=== PATIENT | male | born 1935 | race African-American/Black ===

== ENCOUNTER 2017-01-28 08:36 | Inpatient (IN) | payer OTHER ==
[2017-01-28 09:02] VITALS: BMI 26.6
--- NOTE | 2017-01-28 09:42 | PDOC ---
History of Present Illness <Ilir Peterson - Last Filed: 01/28/17 14:30> - General History Source: Patient Exam Limitations: No Limitations - History of Present Illness Initial Comments: 01/28/17 10:18 81 y.o. M with pmh of HTN, DM, GERD, and arrythmia with pacemaker presenting with dizziness and gait disturbance. Patient states he woke up this morning around 4 am and felt dizzy and unsteady on his feet. Patient also reports right leg weakness. Patient was last normal yesterday prior to sleeping. Patient states he has never had a stroke before. He denies fall LOC, headache, blurry vision, change in vision, tinnitus, hearing loss. PSH- pacemaker placement 3 yrs ago Allergies- Aspirin --Stomach pain, no swelling, no rash Social hx: denies smoking, drinking, and drug use PCP: Dr. Loly Merino President & Founder: Dr. Mccloud <Austen Moore - Last Filed: 01/28/17 15:31> - General Chief Complaint: CVA/TIA Stated Complaint: CVA/TIA Time Seen by Provider: 01/28/17 09:12 NIH Stroke Scale - Last Known Well Date/Time & Onset Date Last Known Well: 01/27/17 Time Last Known Well: 23:00 - Initial Evaluation Level of consciousness: Alert Ask patient the month and their age: Answers both correctly Ask patient to open & close eyes; make fist and let go: Obeys both correctly Best gaze (horizontal eye movement): Normal Visual field testing: No visual field loss Facial paresis (Show teeth/raise eyebrows/close eyes tight): Normal symmetrical movement Motor Function: Left Arm: Normal Motor Function: Right Arm: Normal (extends arm 90 (or 45) degrees for 10 seconds without drift Motor Function: Left Leg: Some effort against gravity Motor Function: Right Leg: Some effort against gravity Limb Ataxia: Present in one limb Sensory(Use pinprick test arms,legs,trunk,face/side to side): Normal Best language (Describe picture, name items, read sentences): No Aphasia Dysarthria (read several words): Mild to moderate slurring of words Extinction and Inattention: No abnormality - Total Score NIH Stroke Scale Score: 6 <Ilir Peterson - Last Filed: 01/28/17 14:30> Past History <Ilir Peterson - Last Filed: 01/28/17 14:30> - Past Medical History Cardiac Disorders: Yes Diabetes: Yes HTN: Yes - Surgical History Cardiac Surgery: Yes (Pacemaker) - Immunization History Immunization Up to Date: No - Suicide/Smoking/Psychosocial Hx Smoking Status: No Smoking History: Never smoked Have you smoked in the past 12 months: No Number of Cigarettes Smoked Daily: 0 Information on smoking cessation initiated: No Hx Alcohol Use: No Drug/Substance Use Hx: No Substance Use Type: None Hx Substance Use Treatment: No <Austen Moore - Last Filed: 01/28/17 15:31> - Past Medical History Allergies/Adverse Reactions: Allergies Allergy/AdvReac Type Severity Reaction Status Date / Time No Known Allergies Allergy Verified 01/28/17 15:08 Home Medications: Ambulatory Orders Insulin 30/Insul NPH Hum S-S70 [NovoLIN 70/30] 30 units SQ BID 12/15/11 Omeprazole Magnesium [Prilosec (OTC)] 20 mg PO DAILY 12/15/11 Insulin (Novolog 70/30) [Novolog Mix 70/30 Flexpen -] 30 units SQ BIDI #0 pen Lisinopril [Prinivil] 2.5 mg PO DAILY #0 tablet 02/23/12 Metoprolol Succinate [Toprol XL -] 25 mg PO DAILY #0 tab.sr.24h 02/23/12 Ranolazine [Ranexa] 1,000 mg PO BID #0 tab.er.12h 02/23/12 Zantac 150 mg PO DAILY #0 02/23/12 Review of Systems - Review of Systems Comments:: 01/28/17 10:29 GENERAL/CONSTITUTIONAL: No fever or chills. No weakness. HEAD, EYES, EARS, NOSE AND THROAT: No change in vision. No ear pain or discharge. No sore throat. No blurry vision CARDIOVASCULAR: No chest pain or shortness of breath RESPIRATORY: No cough, wheezing, or hemoptysis. GASTROINTESTINAL: No nausea, vomiting, diarrhea or constipation. GENITOURINARY: No dysuria, frequency, or change in urination. MUSCULOSKELETAL: No joint or muscle swelling or pain. No neck or back pain. SKIN: No rash NEUROLOGIC: +Dizzines, +RLE weakness, +gait instability, No headache, loss of consciousness, change in sensation ENDOCRINE: No increased thirst. No abnormal weight change HEMATOLOGIC/LYMPHATIC: No anemia, easy bleeding, or history of blood clots. ALLERGIC/IMMUNOLOGIC: No hives or skin allergy. <Austen Moore - Last Filed: 01/28/17 15:31> *Physical Exam - Vital Signs Last Vital Signs Temp Pulse Resp BP Pulse Ox 98 F 63 18 165/87 100 01/28/17 08:45 01/28/17 13:24 01/28/17 13:24 01/28/17 13:24 01/28/17 13:24 <BlairOsmar [email or web address] - Last Filed: 01/28/17 14:30> - Vital Signs Last Vital Signs Temp Pulse Resp BP Pulse Ox 98 F 98 H 18 173/112 100 01/28/17 08:45 01/28/17 08:45 01/28/17 08:45 01/28/17 08:45 01/28/17 08:45 - Physical Exam Comments: 01/28/17 10:29 GENERAL: Awake, alert, and fully oriented, in no acute distress HEAD: No signs of trauma, normocephalic, atraumatic EYES: PERRLA, EOMI, sclera anicteric, conjunctiva clear ENT: Auricles normal inspection, hearing grossly normal, nares patent, oropharynx clear without exudates. Dry mucosa. Poor dentition NECK: Normal ROM, supple, no lymphadenopathy, JVD, or masses LUNGS: No distress, speaks full sentences, clear to auscultation bilaterally HEART: Regular rate and rhythm, normal S1 and S2, no murmurs, rubs or gallops, peripheral pulses normal and equal bilaterally. ABDOMEN: Soft, nontender, normoactive bowel sounds. No guarding, no rebound. No masses EXTREMITIES: Normal inspection, Normal range of motion, no edema. No clubbing or cyanosis. NEUROLOGICAL: Cranial nerves II through XII grossly intact. Normal speech, + Ataxic gait, 4/5 strength in b/l LE, Normal finger to nose and heel to hill SKIN: Warm, Dry, normal turgor, no rashes or lesions noted. 01/28/17 11:34 <Austen Moore - Last Filed: 01/28/17 15:31> ED Treatment Course - LABORATORY CBC & Chemistry Diagram: 01/28/17 10:00 01/28/17 10:00 - ADDITIONAL ORDERS Additional order review: Laboratory Results 01/28/17 01/28/17 01/28/17 12:33 10:00 10:00 PT with INR INR Sodium 138 Potassium 5.6 H Chloride 104 Carbon Dioxide 29 D Anion Gap 5 L BUN 26 H D Creatinine 1.7 H D Creat Clearance w eGFR 38.97 Random Glucose 199 H D Calcium 9.2 Total Bilirubin 0.7 D AST 46 H D ALT 34 Alkaline Phosphatase 86 D Creatine Kinase 375 H Creatine Kinase Index 2.2 CK-MB (CK-2) 8.320 H Troponin I 0.16 H Total Protein 6.8 Albumin 3.1 L Triglycerides 135 D Cholesterol 197 Total LDL Cholesterol 121 H HDL Cholesterol 50 Urine Color Ltyellow Urine Appearance Clear Urine pH 7.0 Ur Specific [place] 1.020 Urine Protein 3+ H Urine Glucose (UA) 1+ H Urine Ketones Negative Urine Blood 1+ H Urine Nitrite Negative Urine Bilirubin Negative Urine Urobilinogen Negative Urine RBC 1 Urine WBC <1 Hyaline Casts 5 Urine Mucus Rare Blood Type O POSITIVE Antibody Screen Negative 01/28/17 10:00 PT with INR 12.60 H INR 1.14 Sodium Potassium Chloride Carbon Dioxide Anion Gap BUN Creatinine Creat Clearance w eGFR Random Glucose Calcium Total Bilirubin AST ALT Alkaline Phosphatase Creatine Kinase Creatine Kinase Index CK-MB (CK-2) Troponin I Total Protein Albumin Triglycerides Cholesterol Total LDL Cholesterol HDL Cholesterol Urine Color Urine Appearance Urine pH Ur Specific [place] Urine Protein Urine Glucose (UA) Urine Ketones Urine Blood Urine Nitrite Urine Bilirubin Urine Urobilinogen Urine RBC Urine WBC Hyaline Casts Urine Mucus Blood Type Antibody Screen 01/28/17 10:00 RBC 5.53 MCV 94.0 MCHC 32.5 RDW 15.2 MPV 9.9 Neutrophils % 60.5 Lymphocytes % 30.2 Monocytes % 7.1 D Eosinophils % 1.7 Basophils % 0.5 D - Medications Given in the ED: ED Medications Discontinued Medications Generic Name Dose Route Start Last Admin Trade Name Freq PRN Reason Stop Dose Admin Aspirin 325 mg 01/28/17 11:35 01/28/17 11:42 Asa - PO 01/28/17 11:36 325 mg ONCE ONE Administration <Ilir Peterson - Last Filed: 01/28/17 14:30> - LABORATORY CBC & Chemistry Diagram: 01/28/17 10:00 01/28/17 10:00 <Austen Moore - Last Filed: 01/28/17 15:31> Medical Decision Making - Medical Decision Making 01/28/17 11:25 81 y.o. M with pmh of HTN, DM, GERD, and arrythmia with pacemaker presenting with dizziness and gait disturbance. Plan: R/o acute cva vs recrudescence vs infection CBC, CMP, CT Head, CXR, UA/UCx 01/28/17 11:27 CT Head- Negative for any acute process. Will get MRI brain, MRA brain/neck 01/28/17 11:37 CBC unremarkable BUN-26 Cr-1.7 Trop-0.16 LDL-121 Full dose aspirin 325 mg given. Patient has allergy, which he states is only abdominal pain. He denies swelling or rash. Benefits of aspirin outweigh risks. Patient understand and is agreeable. 01/28/17 11:49 EKG- Atrial sensed ventricular paced rhythm with prolonged AV conduction. HR-64 , QTc- 505 01/28/17 12:[address] Chun, Patient to be admitted and he will see the patient. Call placed to Dr. Merino 01/28/17 12:[address] Merino. Patient to be admitted to telemetry. 01/28/17 15:30 MRI, MRA cancelled. Patient has pacemaker and is unable to be identified if MRI capable. <Austen Moore - Last Filed: 01/28/17 15:31> *DC/Admit/Observation/Transfer <Ilir Peterson - Last Filed: 01/28/17 14:30> - Discharge Dispostion Admit: Yes <Austen Moore - Last Filed: 01/28/17 15:31> Diagnosis at time of Disposition: CVA (cerebral vascular accident) Qualifiers: CVA mechanism: unspecified Qualified Code(s): I63.9 - Cerebral infarction, unspecified
--- NOTE | 2017-01-28 10:16 | PDOC ---
Attending Attestation - Resident Resident Name: Austen Moore - ED Attending Attestation I have performed the following: I have examined & evaluated the patient, The case was reviewed & discussed with the resident, I agree w/resident's findings & plan, Exceptions are as noted - HPI HPI: 01/28/17 10:02 81yo hx HTN, DM, GERD, PM p/w lightheadedness and unstable gait since waking up this morning. Last time he remembers walking normally was last night. Pt reports feeling as though his R leg is weak and he keeps falling to his right. Denies fevers, chills, CP, SOB, cough, dysuria, frequency, abd pain, headache. - Physicial Exam PE: 01/28/17 10:16 GENERAL: Awake, alert, and fully oriented, in no acute distress HEAD: No signs of trauma EYES: PERRLA, EOMI, sclera anicteric, conjunctiva clear ENT: Auricles normal inspection, hearing grossly normal, nares patent, oropharynx clear without exudates. Moist mucosa NECK: Normal ROM, supple, no lymphadenopathy, JVD, or masses LUNGS: Breath sounds equal, clear to auscultation bilaterally. No wheezes, and no crackles HEART: Regular rate and rhythm, normal S1 and S2, no murmurs, rubs or gallops ABDOMEN: Soft, nontender, normoactive bowel sounds. No guarding, no rebound. No masses EXTREMITIES: Normal range of motion, no edema. No clubbing or cyanosis. No cords, erythema, or tenderness NEUROLOGICAL: Normal speech, cranial nerves intact, negative pronator drift, 4/ 5 strength in b/l LE extremities, 5/5 strength in b/l UE, normal sensation to light touch in all 4 extremities, normal cerebellar exam, very unstable wide based gait, normal reflexes and tone SKIN: Warm, Dry, normal turgor, no rashes or lesions noted. - Medical Decision Making 01/28/17 10:18 81yo M hx HTN, HL, PM p/w lightheadedness, unstable gait, and subjective R LE weakness. Vitals unremarkable. Exam with symmetric 4/5 LE weakness and very unsteady gait. Concern for acute stroke vs recrudescence vs infection -CTH -labs -UA/Ucx -CXR -call PMD -reassess 01/28/17 13:02 Trop +, pt has documented allergy to asa, reports abd pain is his reaction. Given lack of reported anaphylactic allergy, will dose ASA and monitor closely for any other adverse reactions. CT neg. Dr. Chun consulted and will see patient. Pt pending MRI. Dr. Merino has accepted pt for admission. Case discussed in detail with admitting physician including history, physical exam and ancillary studies. Admitting physician has assumed care for the patient, will follow all pending diagnostics and will complete the evaluation and treatment. Heart Score/ECG Review #1 01/28/17 11:34 Atrial sensed, ventricular paced rhythm, rate 64, with prolonged AV conduction
[2017-01-28] MEDS: SODIUM CHLORIDE 1,000 ML IV SCH (10:34)
[2017-01-28 10:50] LABS: BASOPHIL 0.5 % (0-2.0); EOSINOPHIL 1.7 % (0-4.5); MCH 30.6 pg (25.7-33.7); MCHC 32.5 g/dl (32.0-35.9); MEAN PLT VOLUME 9.9 fl (7.5-11.1); NEUTROPHILS 60.5 % (42.8-82.8); PLATELET COUNT 150 K/MM3 (134-434); RDW 15.2 % (11.9-15.9); WHITE BLOOD COUNT 5.3 K/mm3 (4.0-10.0)
[2017-01-28 11:04] LABS: INR 1.14 (0.82-1.09); PROTHROMBIN TIME (PATIENT) 12.6 SEC (9.98-11.88)
[2017-01-28 11:18] LABS: ALBUMIN 3.1 g/dl (3.4-5.0); ANION GAP 5 (8-16); BILIRUBIN,TOTAL 0.7 mg/dL (0.2-1.0); CALCIUM 9.2 mg/dL (8.5-10.1); CHOLESTEROL 197 mg/dL (50-200); CO2 29 mmol/L (21-32); CREATININE 1.7 mg/dL (0.7-1.3); GLUCOSE,RANDOM 199 mg/dL (74-106); SGPT/ALT 34 U/L (12-78); TOT PROT 6.8 g/dl (6.4-8.2)
[2017-01-28 11:19] LABS: ALK PHOS 86 U/L (45-117); TROPONIN I 0.16 ng/ml (0.00-0.05)
[2017-01-28 11:25] LABS: CPK 375 IU/L (39-308); SGOT/AST 46 U/L (15-37)
[2017-01-28] MEDS ORDERED: ASPIRIN 325 MG TABLET PO ONE (11:35)
[2017-01-28] MEDS ORDERED: ASPIRIN 325 MG ENTERIC COATED TABLET (FP) ONE (11:39)
[2017-01-28 12:44] LABS: URINE APPEARANCE CLEAR; URINE BILIRUBIN NEGATIVE (NEGATIVE); URINE BLOOD 1+ (NEGATIVE); URINE COLOR LTYELLOW; URINE GLUCOSE (UA) 1+ (NEGATIVE); URINE KETONE NEGATIVE (NEGATIVE); URINE LEUK ESTERASE NEGATIVE (NEGATIVE); URINE NITRITE NEGATIVE (NEGATIVE); URINE UROBILINOGEN NEGATIVE mg/dL (0.2-1.0)
[2017-01-28 12:47] LABS: URINE PROTEIN 3+ (NEGATIVE)
[2017-01-28 12:50] LABS: URINE HYALINE CAST 5 /lpf; URINE MUCUS RARE; URINE RBC 1 /hpf (0-3); URINE WBC <1 /hpf (3-5)
--- NOTE | 2017-01-28 17:57 | CON.NEURO ---
Consult Consult Specialty:: Neurology Reason for Consultation:: Weakness - History of Present Illness Chief Complaint: Weakness, difficulty walking, dizziness History of Present Illness: 81yo hx HTN, DM, GERD, PM p/w vertigo and unstable gait since waking up this morning. Last time he remembers walking normally was last night. Pt reports feeling as though his R leg is weak and he kept falling to his right. He now feels back to normal. - History Source History Provided By: Patient, Medical Record Limitations to Obtaining History: No Limitations - Past Medical History Cardio/Vascular: Yes: HTN, Other (pacemaker) Gastrointestinal: Yes: GERD - Past Surgical History Past Surgical History: Yes: Permanent Pacemaker - Alcohol/Substance Use Hx Alcohol Use: No - Smoking History Smoking history: Never smoked Have you smoked in the past 12 months: No Aproximately how many cigarettes per day: 0 Home Medications - Allergies Allergies/Adverse Reactions: Allergies Allergy/AdvReac Type Severity Reaction Status Date / Time No Known Allergies Allergy Verified 01/28/17 15:08 - Home Medications Home Medications: Ambulatory Orders Insulin 30/Insul NPH Hum S-S70 [NovoLIN 70/30] 30 units SQ BID 12/15/11 Omeprazole Magnesium [Prilosec (OTC)] 20 mg PO DAILY 12/15/11 Insulin (Novolog 70/30) [Novolog Mix 70/30 Flexpen -] 30 units SQ BIDI #0 pen Lisinopril [Prinivil] 2.5 mg PO DAILY #0 tablet 02/23/12 Metoprolol Succinate [Toprol XL -] 25 mg PO DAILY #0 tab.sr.24h 02/23/12 Ranolazine [Ranexa] 1,000 mg PO BID #0 tab.er.12h 02/23/12 Zantac 150 mg PO DAILY #0 02/23/12 Review of Systems - Review of Systems Constitutional: reports: No Symptoms Eyes: reports: No Symptoms HENT: reports: No Symptoms Cardiovascular: reports: No Symptoms Respiratory: reports: No Symptoms Gastrointestinal: reports: No Symptoms Genitourinary: reports: No Symptoms Physical Exam-Neuro Vital Signs: Vital Signs Temperature 98 F 01/28/17 16:24 Pulse Rate 74 01/28/17 16:24 Respiratory Rate 18 01/28/17 16:24 Blood Pressure 133/69 01/28/17 16:24 O2 Sat by Pulse Oximetry (%) 98 01/28/17 16:24 Labs: INR, PTT INR 1.14 (0.82-1.09) 01/28/17 10:00 - Neuro Exam Level Of Consciousness: Yes: Alert, Oriented to Person, Oriented to Place, Oriented to Time Eyes: Yes: JENNIFER Speech: WNL Cranial Nerves II-XII Intact: Yes DTR's: 1+ Left Bicep, 1+ Right Bicep, 1+ Left Tricep, 1+ Right Tricep, 1+ Left Brachioradialis, 1+ Right Brachioradialis Babinski: Absent Response to light touch: Normal Coordination: Normal: Finger to Nose Motor Strength: 5/5: Left Arm, Right Arm, Left Leg, Right Leg Gait: Normal NIH Stroke Scale - Initial Evaluation Level of consciousness: Alert Ask patient the month and their age: Answers both correctly Ask patient to open & close eyes; make fist and let go: Obeys both correctly Best gaze (horizontal eye movement): Normal Visual field testing: No visual field loss Facial paresis (Show teeth/raise eyebrows/close eyes tight): Normal symmetrical movement Motor Function: Left Arm: Normal Motor Function: Right Arm: Normal (extends arm 90 (or 45) degrees for 10 seconds without drift Motor Function: Left Leg: Normal (extends leg 30 degrees for 5 seconds without drift) Motor Function: Right Leg: Normal (extends leg 30 degrees for 5 seconds without drift) Limb Ataxia: No ataxia Sensory(Use pinprick test arms,legs,trunk,face/side to side): Normal Best language (Describe picture, name items, read sentences): No Aphasia Dysarthria (read several words): Normal articulation Extinction and Inattention: No abnormality - Total Score NIH Stroke Scale Score: 0 Imaging - Results Chest X-ray: Report Reviewed (double lead pacemaker in chest) Cat Scan: Image Reviewed (No acute pathology) Problem List - Problems (1) TIA (transient ischemic attack) Assessment/Plan: patient with transient vertigo and difficulty walking, now resolved. Unclear time of onset so TPA not appropriate at presentation and now he is resolved anyway. Given pacemaker he cannot get MRI, but I would repeat CT scan over weekend and get echocardiogram and carotid duplex. Thanks. Code(s): G45.9 - TRANSIENT CEREBRAL ISCHEMIC ATTACK, UNSPECIFIED
--- NOTE | 2017-01-28 18:18 | PN ---
Progress Note (short form) - Note Progress Note: She remains obtunded, intubated. CSF obtained after difficult LP. She has increased CSF protein (even after correction for high RBC's) and this suggests CSF process. 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 Discussed with team who was concerned about empiric use of acyclovir in setting of tenuous renal function however this is a calculation that must be made in setting of total clinical picture. Problem List - Problems (1) TIA (transient ischemic attack) Code(s): G45.9 - TRANSIENT CEREBRAL ISCHEMIC ATTACK, UNSPECIFIED
[2017-01-28] MEDS ORDERED: ACETAMINOPHEN 325 MG TABLET (FP) PO PRN (18:25)
--- NOTE | 2017-01-28 18:28 | HP ---
Admitting History and Physical - Primary Care Physician PCP: Loly Merino - Admission Chief Complaint: weakness of legs. History of Present Illness: 81 y.o. M with pmh of HTN, IDDM, GERD, and arrythmia with pacemaker presenting with dizziness and gait disturbance. Patient states he woke up this morning around 4 am and felt dizzy and unsteady on his feet. Patient also reports right leg weakness. Patient was last normal yesterday prior to sleeping. Patient states he has never had a stroke before. He denies fall LOC, headache, blurry vision, change in vision, tinnitus, hearing loss. pts symptoms improved in er-- given asa pt admitted to tele case was discussed with er physician/ resident Pt seen / examined in tele awake/ comfortable says much better now denies cp/sob/abd pain/ headche/dizziness. no u/b trouble. History Source: Patient Limitations to Obtaining History: No Limitations - Past Medical History Cardiovascular: Yes: HTN, Other (pacemaker) Gastrointestinal: Yes: GERD Endocrine: Yes: Diabetes Mellitus - Past Surgical History Past Surgical History: Yes: Permanent Pacemaker - Smoking History Smoking history: Never smoked Have you smoked in the past 12 months: No Aproximately how many cigarettes per day: 0 - Alcohol/Substance Use Hx Alcohol Use: No Home Medications - Allergies Allergies/Adverse Reactions: Allergies Allergy/AdvReac Type Severity Reaction Status Date / Time No Known Allergies Allergy Verified 01/28/17 15:08 - Home Medications Home Medications: Ambulatory Orders Insulin 30/Insul NPH Hum S-S70 [NovoLIN 70/30] 30 units SQ BID 12/15/11 Omeprazole Magnesium [Prilosec (OTC)] 20 mg PO DAILY 12/15/11 Insulin (Novolog 70/30) [Novolog Mix 70/30 Flexpen -] 30 units SQ BIDI #0 pen Lisinopril [Prinivil] 2.5 mg PO DAILY #0 tablet 02/23/12 Metoprolol Succinate [Toprol XL -] 25 mg PO DAILY #0 tab.sr.24h 02/23/12 Ranolazine [Ranexa] 1,000 mg PO BID #0 tab.er.12h 02/23/12 Zantac 150 mg PO DAILY #0 02/23/12 Review of Systems - Review of Systems Constitutional: reports: No Symptoms Eyes: reports: No Symptoms HENT: reports: No Symptoms Neck: reports: No Symptoms Cardiovascular: reports: No Symptoms Respiratory: reports: No Symptoms Gastrointestinal: reports: No Symptoms Genitourinary: reports: No Symptoms Musculoskeletal: reports: No Symptoms. denies: Muscle Weakness Neurological: reports: Dizziness, Weakness Endocrine: reports: No Symptoms Hematology/Lymphatic: reports: No Symptoms Physical Examination Vital Signs: Vital Signs Temperature 98 F 01/28/17 16:24 Pulse Rate 74 01/28/17 16:24 Respiratory Rate 18 01/28/17 16:24 Blood Pressure 133/69 01/28/17 16:24 O2 Sat by Pulse Oximetry (%) 98 01/28/17 16:24 Constitutional: Yes: No Distress, Calm Eyes: Yes: Conjunctiva Clear HENT: Yes: WNL Neck: Yes: Supple Cardiovascular: Yes: Regular Rate and Rhythm Respiratory: Yes: CTA Bilaterally Gastrointestinal: Yes: Normal Bowel Sounds, Soft Edema: No Neurological: Yes: WNL, Alert, Cran Nerves II-XII Intact ...Motor Strength: WNL Psychiatric: Yes: Alert Imaging - Results Chest X-ray: Report Reviewed Cat Scan: Report Reviewed EKG: Report Reviewed Problem List - Problems (1) TIA (transient ischemic attack) Code(s): G45.9 - TRANSIENT CEREBRAL ISCHEMIC ATTACK, UNSPECIFIED (2) Dizziness and giddiness Code(s): R42 - DIZZINESS AND GIDDINESS (3) IDDM (insulin dependent diabetes mellitus) Code(s): E11.9 - TYPE 2 DIABETES MELLITUS WITHOUT COMPLICATIONS Z79.4 - PENITENTIARY (CURRENT) USE OF INSULIN (4) Pacemaker Code(s): Z95.0 - PRESENCE OF CARDIAC PACEMAKER Assessment/Plan monitor on tele check orthostasis monitor bgm meds reviewed orders written continue asa check lipid profile neuro consult noted / appreciated cardiology consult will follow discussed with pt .
[2017-01-28] MEDS: HEPARIN NA (PORCINE) 5,000 UNITS/ML 1ML VIAL SQ SCH (20:59)
[2017-01-28] MEDS: INSULIN SLIDING SCALE (NOVOLOG) 1 VIAL SQ SCH (20:59)
[2017-01-28] MEDS: RANITIDINE HCL 150 MG TABLET (FP) PO SCH (21:00)
[2017-01-28] MEDS: RANOLAZINE E.R. 500 MG TABLET (FP) PO SCH (21:00)
[2017-01-29] MEDS ORDERED: MAG HYDROX/AL HYDROX/SIMETH 30 ML UNIT-DOSE CUP PO ONE (00:15)
[2017-01-29 01:19] LABS: TROPONIN I 0.14 ng/ml (0.00-0.05)
[2017-01-29] MEDS: INSULIN SLIDING SCALE (NOVOLOG) 1 VIAL SQ SCH ×4 (06:24→21:57)
[2017-01-29] MEDS: INSULIN (NOVOLOG MIX 70/30) 100 UNITS/ML MDV SQ SCH ×2 (06:24→16:42)
[2017-01-29 07:52] LABS: BASOPHIL 0.3 % (0-2.0); EOSINOPHIL 2.9 % (0-4.5); MCH 30.8 pg (25.7-33.7); MCHC 33.1 g/dl (32.0-35.9); MEAN PLT VOLUME 10.7 fl (7.5-11.1); PLATELET COUNT 139 K/MM3 (134-434); RDW 14.9 % (11.9-15.9); WHITE BLOOD COUNT 4.4 K/mm3 (4.0-10.0)
[2017-01-29 08:20] LABS: ALBUMIN 2.7 g/dl (3.4-5.0); ANION GAP 7 (8-16); BILIRUBIN,TOTAL 0.7 mg/dL (0.2-1.0); CALCIUM 8.5 mg/dL (8.5-10.1); CHOLESTEROL 176 mg/dL (50-200); CO2 26 mmol/L (21-32); CREATININE 1.5 mg/dL (0.7-1.3); GLUCOSE,RANDOM 197 mg/dL (74-106); MAGNESIUM 1.9 mg/dL (1.8-2.4); SGOT/AST 31 U/L (15-37); SGPT/ALT 31 U/L (12-78)
[2017-01-29 08:27] LABS: ALK PHOS 78 U/L (45-117); THYROID STIMULATING HORMONE 1.68 uIU/ml (0.358-3.74)
[2017-01-29] MEDS: LISINOPRIL 5 MG TABLET (FP) PO SCH (09:12)
[2017-01-29] MEDS: HEPARIN NA (PORCINE) 5,000 UNITS/ML 1ML VIAL SQ SCH ×2 (09:12→21:56)
[2017-01-29] MEDS: ASPIRIN 325 MG ENTERIC COATED TABLET (FP) PO SCH (09:12)
[2017-01-29] MEDS: RANOLAZINE E.R. 500 MG TABLET (FP) PO SCH ×2 (09:13→21:56)
[2017-01-29] MEDS: METOPROLOL SUCCINATE 25 MG TAB.SR.24H (FP) PO SCH (09:13)
[2017-01-29] MEDS: RANITIDINE HCL 150 MG TABLET (FP) PO SCH (09:13)
[2017-01-29] MEDS ORDERED: RANITIDINE HCL 150 MG TABLET (FP) PO SCH (10:00)
[2017-01-29] MEDS ORDERED: PANTOPRAZOLE 20 MG TABLET (FP) PO SCH (10:00)
--- NOTE | 2017-01-29 11:46 | PN ---
Progress Note (short form) - Note Progress Note: pt seen/ examined feels better says had acidity last night denies cp. overall stable Vital Signs Temp 98.4 F 01/28/17 22:00 Pulse 71 01/29/17 06:00 Resp 20 01/29/17 06:00 BP 176/92 01/29/17 06:00 Pulse Ox 99 01/28/17 21:00 Intake & Output 01/28/17 01/28/17 01/29/17 11:59 23:59 11:59 Intake Total 504 Balance 504 Weight 180 lb 13.313 oz 180 lb 13.313 oz Intake: IV 504 Normal Saline - 1,000 ml 504 @ 42 mls/hr IV ASDIR [facility] Rx#:[id number] Other: Voiding Method Toilet Height 5 ft 9 in 5 ft 9 in Body Mass Index (BMI) 26.6 26.6 Weight Measurement Method Stated by Patient Weight Measurement Method Est/Stated by Patient Active Medications Acetaminophen (Tylenol -) 650 mg PO Q6H PRN PRN Reason: FEVER OR PAIN Last Admin: 01/29/17 06:25 Dose: 650 mg Aspirin (Ecotrin -) 325 mg PO DAILY [facility] Last Admin: 01/29/17 09:12 Dose: 325 mg Heparin Sodium (Porcine) (Heparin -) 5,000 unit SQ BID [facility] Last Admin: 01/29/17 09:12 Dose: 5,000 unit Sodium Chloride (Normal Saline -) 1,000 mls @ 42 mls/hr IV ASDIR [facility] Last Admin: 01/28/17 10:34 Dose: 42 mls/hr Insulin Aspart (Novolog Mix 70/30 Vial) 30 units SQ BID@0700,1630 [facility] Last Admin: 01/29/17 06:24 Dose: 30 units Insulin Aspart (Novolog Vial Sliding Scale -) 0 vial SQ ACHS [facility] PRN Reason: Protocol Last Admin: 01/29/17 06:24 Dose: Not Given Lisinopril (Prinivil) 2.5 mg PO DAILY [facility] Last Admin: 01/29/17 09:12 Dose: 2.5 mg Metoprolol Succinate (Toprol Xl -) 25 mg PO DAILY [facility] Last Admin: 01/29/17 09:13 Dose: 25 mg Pantoprazole Sodium (Protonix -) 20 mg PO DAILY [facility] Last Admin: 09/30/17 09:13 Dose: 20 mg Ranitidine HCl (Zantac -) 150 mg PO DAILY [facility] Last Admin: 01/29/17 09:13 Dose: 150 mg Ranolazine (Ranexa -) 1,000 mg PO BID [facility] Last Admin: 01/29/17 09:13 Dose: 1,000 mg CBC, BMP 01/29/17 05:30 01/29/17 05:30 Physical Examination Constitutional: Yes: No Distress, Calm Eyes: Yes: Conjunctiva Clear HENT: Yes: WNL/ no bruie Neck: Yes: Supple Cardiovascular: Yes: Regular Rate and Rhythm Respiratory: Yes: CTA Bilaterally Gastrointestinal: Yes: Normal Bowel Sounds, Soft/ non tender. Edema: No Neurological: Yes: WNL, Alert, Cran Nerves II-XII Intact ...Motor Strength: WNL Psychiatric: Yes: Alert Imaging - Results Chest X-ray: Report Reviewed Cat Scan: Report Reviewed EKG: Report Reviewed Problem List - Problems (1) TIA (transient ischemic attack) Code(s): G45.9 - TRANSIENT CEREBRAL ISCHEMIC ATTACK, UNSPECIFIED (2) Dizziness and giddiness Code(s): R42 - DIZZINESS AND GIDDINESS (3) IDDM (insulin dependent diabetes mellitus) Code(s): E11.9 - TYPE 2 DIABETES MELLITUS WITHOUT COMPLICATIONS Z79.4 - MEDICAL REVIEWER (CURRENT) USE OF INSULIN (4) Pacemaker Code(s): Z95.0 - PRESENCE OF CARDIAC PACEMAKER Assessment/Plan clinically stable bp on higher side-- keep on higher side neuro to follow ppm chack daily oob- chair monitor bgm cardiology to follow monitor on tele. will follow Problem List - Problems (1) TIA (transient ischemic attack) Code(s): G45.9 - TRANSIENT CEREBRAL ISCHEMIC ATTACK, UNSPECIFIED (2) Dizziness and giddiness Code(s): R42 - DIZZINESS AND GIDDINESS (3) IDDM (insulin dependent diabetes mellitus) Code(s): E11.9 - TYPE 2 DIABETES MELLITUS WITHOUT COMPLICATIONS Z79.4 - MEDICAL REVIEWER (CURRENT) USE OF INSULIN (4) Pacemaker Code(s): Z95.0 - PRESENCE OF CARDIAC PACEMAKER
--- NOTE | 2017-01-29 12:15 | CONSULT ---
Consult Consult Specialty:: Cardiology Reason for Consultation:: (Dr Burnham covering Dr. Albarado). Dizziness - History of Present Illness Chief Complaint: Dizziness History of Present Illness: 81 y.o. M with pmh of HTN, IDDM, GERD, and s/p single lead RV pacemaker. 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 Poor historian but, patient recalls waking up yesterday early am and felt dizzy and unsteady on his feet along with right leg weakness. Patient was last normal yesterday prior to sleeping. Patient states he has never had a stroke before. He denies fall LOC, headache, blurry vision, change in vision, tinnitus, hearing loss. No chest pain or dsypnea pts symptoms improved in er-- given asa pt admitted to tele which showed NSVT at 06:50 this AM (4 beats) - History Source History Provided By: Patient, Medical Record - Past Medical History Cardio/Vascular: Yes: HTN, Other (pacemaker) Gastrointestinal: Yes: GERD Endocrine: Yes: Diabetes Mellitus - Past Surgical History Past Surgical History: Yes: Permanent Pacemaker - Alcohol/Substance Use Hx Alcohol Use: No - Smoking History Smoking history: Never smoked Have you smoked in the past 12 months: No Aproximately how many cigarettes per day: 0 Home Medications - Allergies Allergies/Adverse Reactions: Allergies Allergy/AdvReac Type Severity Reaction Status Date / Time No Known Allergies Allergy Verified 01/28/17 15:08 - Home Medications Home Medications: Ambulatory Orders Insulin 30/Insul NPH Hum S-S70 [NovoLIN 70/30] 30 units SQ BID 12/15/11 Omeprazole Magnesium [Prilosec (OTC)] 20 mg PO DAILY 12/15/11 Insulin (Novolog 70/30) [Novolog Mix 70/30 Flexpen -] 30 units SQ BIDI #0 pen Lisinopril [Prinivil] 2.5 mg PO DAILY #0 tablet 02/23/12 Metoprolol Succinate [Toprol XL -] 25 mg PO DAILY #0 tab.sr.24h 02/23/12 Ranolazine [Ranexa] 1,000 mg PO BID #0 tab.er.12h 02/23/12 Zantac 150 mg PO DAILY #0 02/23/12 Review of Systems - Review of Systems Neurological: reports: Dizziness Physical Exam Vital Signs: Vital Signs Temperature 98.4 F 01/28/17 22:00 Pulse Rate 71 01/29/17 06:00 Respiratory Rate 20 01/29/17 06:00 Blood Pressure 176/92 01/29/17 06:00 O2 Sat by Pulse Oximetry (%) 99 01/28/17 21:00 Constitutional: Yes: No Distress, Calm Eyes: Yes: WNL HENT: Yes: WNL Neck: Yes: WNL Cardiovascular: Yes: Regular Rate and Rhythm (No murmurs) Respiratory: Yes: WNL, CTA Bilaterally Gastrointestinal: Yes: WNL Musculoskeletal: Yes: WNL Extremities: Yes: WNL Edema: LLE: Trace, RLE: Trace Integumentary: Yes: Other (Left pectoral PPM in situ) Labs: CBC, BMP 01/29/17 05:30 01/29/17 05:30 Imaging - Results EKG: Image Reviewed (ECG on 01/28/2017 at 09:13 100% V-paced) Other: Report Reviewed (Echo in 01/2012 showed normal LV with RV pacemaker and mitral annular calcification.) Assessment/Plan 81 yo male with HTN, IDDM, GERD, DM (HgbA1c 8.3%) and s/p single lead RV pacemaker now with dizziness and leg weakness with (+) troponin. Admitted for concerns for TIA and being worked up for this. 1) Dizziness -Undergoing neurological eval for TIA given asymmetric leg wekaness -Had NSVT this AM, but unclear if this is contributing to his dizziness -On Tuesday would recommend his RV Pacemaker get interrogated by rep to review any recent sustained arrhythmias. Need to obtain the type of PPM he has ( [employer], [employer], [employer] etc?) -Last echo in 2011 with normal LV, but given NSVT now, would repeat echo to assess LV function 2) Troponin elevation -Troponin is mildly elevated but doubt this is ACS -Down trending now (0.16 to 0.14) with CK-MB 8 to 7 -Would contrinue asa and start statin and continue metoprolol as you are doing -May consider further risk stratification with in patient myocardial pharmacological stress once neurological issues resolved. -Keep on tele 3) HTN -BP elevated -Coordinate with neuro what goal MAP is if considering this a TIA -If OK to control BP, would titrate Lisinopril dose to 5mg daily
--- NOTE | 2017-01-29 13:03 | EKG ---
Test Reason : Blood Pressure : / mmHG Vent. Rate : 064 BPM Atrial Rate : 064 BPM P-R Int : 246 ms QRS Dur : 170 ms QT Int : 490 ms P-R-T Axes : 053 -87 086 degrees QTc Int : 505 ms Atrial-sensed ventricular-paced rhythm with prolonged AV conduction ABNORMAL ECG WHEN COMPARED WITH ECG OF 21-FEB-2012 09:57, VENT. RATE HAS DECREASED BY 3 BPM Confirmed by FABRICE FRANKLIN MD ([id number]) on 01/29/2017 1:03:05 PM Referred By: Confirmed By:FABRICE FRANKLIN MD
[2017-01-29] MEDS: SODIUM CHLORIDE 1,000 ML IV SCH (13:22)
[2017-01-29] MEDS: PANTOPRAZOLE 40 MG TABLET (FP) PO SCH (13:22)
[2017-01-29] MEDS: ATORVASTATIN CA 40 MG TABLET (FP) PO SCH (21:56)
[2017-01-30] MEDS: INSULIN (NOVOLOG MIX 70/30) 100 UNITS/ML MDV SQ SCH ×2 (06:28→17:30)
[2017-01-30] MEDS: INSULIN SLIDING SCALE (NOVOLOG) 1 VIAL SQ SCH ×4 (06:29→21:37)
[2017-01-30] MEDS ORDERED: PT OWN MED DRAWER 7, Y5N ONE (09:32)
[2017-01-30] MEDS: METOPROLOL SUCCINATE 25 MG TAB.SR.24H (FP) PO SCH (09:38)
[2017-01-30] MEDS: PANTOPRAZOLE 40 MG TABLET (FP) PO SCH (09:38)
[2017-01-30] MEDS: LISINOPRIL 5 MG TABLET (FP) PO SCH (09:39)
[2017-01-30] MEDS: ASPIRIN 325 MG ENTERIC COATED TABLET (FP) PO SCH (09:39)
[2017-01-30] MEDS: HEPARIN NA (PORCINE) 5,000 UNITS/ML 1ML VIAL SQ SCH ×2 (09:39→21:37)
[2017-01-30] MEDS: RANOLAZINE E.R. 500 MG TABLET (FP) PO SCH ×2 (09:39→21:34)
[2017-01-30] MEDS: SODIUM CHLORIDE 1,000 ML IV SCH (12:10)
--- NOTE | 2017-01-30 12:49 | PN ---
Progress Note (short form) - Note Progress Note: History of Present Illness: 81yo hx HTN, DM, GERD, PM p/w vertigo and unstable gait since waking up this morning. Last time he remembers walking normally was last night. Pt reported feeling as though his R leg is weak and he kept falling to his right. He now feels back to normal. Today reports he is feeling better, denies vertigo/weakness. Reports improved gait. O/E: 5/5strength, walks steadily, no signs of weakness in right arm/leg. Plan: Repeat CT head, await carotid doppler study. Ananya Mendoza MD
--- NOTE | 2017-01-30 14:50 | PN ---
Progress Note (short form) - Note Progress Note: pt seen/ examined feels well no complains denies cp. Vital Signs Temp 97.6 F 01/30/17 10:00 Pulse 74 01/30/17 10:00 Resp 18 01/30/17 10:00 BP 156/78 01/30/17 10:00 Pulse Ox 98 01/30/17 09:00 Intake & Output 01/29/17 01/30/17 01/30/17 23:59 11:59 23:59 Intake Total 300 504 300 Output Total 800 600 Balance -500 504 -300 Intake: IV 0 504 Normal Saline - 1,000 ml 0 504 @ 42 mls/hr IV ASDIR [facility] Rx#:[id number] Oral 300 300 Output: Urine 800 600 Void 800 600 Other: Voiding Method Toilet Toilet Urinal Active Medications Acetaminophen (Tylenol -) 650 mg PO Q6H PRN PRN Reason: FEVER OR PAIN Last Admin: 01/29/17 06:25 Dose: 650 mg Aspirin (Ecotrin -) 325 mg PO DAILY [facility] Last Admin: 01/30/17 09:39 Dose: 325 mg Atorvastatin Calcium (Lipitor -) 40 mg PO HS [facility] Last Admin: 01/29/17 21:56 Dose: 40 mg Heparin Sodium (Porcine) (Heparin -) 5,000 unit SQ BID [facility] Last Admin: 01/30/17 09:39 Dose: 5,000 unit Sodium Chloride (Normal Saline -) 1,000 mls @ 42 mls/hr IV ASDIR [facility] Last Admin: 01/30/17 12:10 Dose: Not Given Insulin Aspart (Novolog Mix 70/30 Vial) 30 units SQ BID@0700,1630 [facility] Last Admin: 01/30/17 06:28 Dose: 30 units Insulin Aspart (Novolog Vial Sliding Scale -) 0 vial SQ ACHS [facility] PRN Reason: Protocol Last Admin: 01/30/17 12:10 Dose: Not Given Lisinopril (Prinivil) 2.5 mg PO DAILY [facility] Last Admin: 01/30/17 09:39 Dose: 2.5 mg Metoprolol Succinate (Toprol Xl -) 25 mg PO DAILY [facility] Last Admin: 01/30/17 09:38 Dose: 25 mg Pantoprazole Sodium (Protonix -) 40 mg PO DAILY [facility] Last Admin: 01/30/17 09:38 Dose: 40 mg Ranolazine (Ranexa -) 1,000 mg PO BID [facility] Last Admin: 01/30/17 09:39 Dose: 1,000 mg CBC, BMP 01/29/17 05:30 01/29/17 05:30 Physical Examination Constitutional: Yes: No Distress, comfortable Eyes: Yes: Conjunctiva Clear HENT: Yes: WNL/ Neck: Yes: Supple Cardiovascular: Yes: Regular Rate and Rhythm Respiratory: Yes: CTA Bilaterally Gastrointestinal: Yes: Normal Bowel Sounds, Soft/ non tender. Edema: No Neurological: Yes: WNL, Alert, Cran Nerves II-XII Intact ...Motor Strength: WNL-moves all extremities Psychiatric: Yes: Alert Imaging - Results Chest X-ray: Report Reviewed Cat Scan: Report Reviewed EKG: Report Reviewed Problem List - Problems (1) TIA (transient ischemic attack) Code(s): G45.9 - TRANSIENT CEREBRAL ISCHEMIC ATTACK, UNSPECIFIED (2) Dizziness and giddiness Code(s): R42 - DIZZINESS AND GIDDINESS (3) IDDM (insulin dependent diabetes mellitus) Code(s): E11.9 - TYPE 2 DIABETES MELLITUS WITHOUT COMPLICATIONS Z79.4 - CABINET MAKER (CURRENT) USE OF INSULIN (4) Pacemaker Code(s): Z95.0 - PRESENCE OF CARDIAC PACEMAKER Assessment/Plan clinically stable continue present care daily oob- chair neurology/ cardiology on case. ppm check will follow monitor on tele Problem List - Problems (1) TIA (transient ischemic attack) Code(s): G45.9 - TRANSIENT CEREBRAL ISCHEMIC ATTACK, UNSPECIFIED (2) Dizziness and giddiness Code(s): R42 - DIZZINESS AND GIDDINESS (3) IDDM (insulin dependent diabetes mellitus) Code(s): E11.9 - TYPE 2 DIABETES MELLITUS WITHOUT COMPLICATIONS Z79.4 - CORRECTION (CURRENT) USE OF INSULIN (4) Pacemaker Code(s): Z95.0 - PRESENCE OF CARDIAC PACEMAKER
--- NOTE | 2017-01-30 15:49 | PN ---
Progress Note (short form) - Note Progress Note: Chief Complaint: Dizziness S: weakness persists but is improving. no sob, cp, palps. dizziness resolved. feels some discomfort at ppm site but cannot clarify. cards: garland Current Medications Acetaminophen (Tylenol -) 650 mg PO Q6H PRN PRN Reason: FEVER OR PAIN Last Admin: 01/29/17 06:25 Dose: 650 mg Aspirin (Ecotrin -) 325 mg PO DAILY [facility] Last Admin: 01/30/17 09:39 Dose: 325 mg Atorvastatin Calcium (Lipitor -) 40 mg PO HS [facility] Last Admin: 01/29/17 21:56 Dose: 40 mg Heparin Sodium (Porcine) (Heparin -) 5,000 unit SQ BID [facility] Last Admin: 01/30/17 09:39 Dose: 5,000 unit Sodium Chloride (Normal Saline -) 1,000 mls @ 42 mls/hr IV ASDIR [facility] Last Admin: 01/30/17 12:10 Dose: Not Given Insulin Aspart (Novolog Mix 70/30 Vial) 30 units SQ BID@0700,1630 [facility] Last Admin: 01/30/17 06:28 Dose: 30 units Insulin Aspart (Novolog Vial Sliding Scale -) 0 vial SQ ACHS [facility] PRN Reason: Protocol Last Admin: 01/30/17 12:10 Dose: Not Given Lisinopril (Prinivil) 2.5 mg PO DAILY [facility] Last Admin: 01/30/17 09:39 Dose: 2.5 mg Metoprolol Succinate (Toprol Xl -) 25 mg PO DAILY [facility] Last Admin: 01/30/17 09:38 Dose: 25 mg Pantoprazole Sodium (Protonix -) 40 mg PO DAILY [facility] Last Admin: 01/30/17 09:38 Dose: 40 mg Ranolazine (Ranexa -) 1,000 mg PO BID [facility] Last Admin: 01/30/17 09:39 Dose: 1,000 mg Vital Signs - 24 hr 01/29/17 01/29/17 01/29/17 17:00 21:00 22:00 Temperature 97.6 F 98.5 F Pulse Rate 69 79 Respiratory 20 20 Rate Blood Pressure 160/83 185/96 O2 Sat by Pulse 100 Oximetry (%) 01/30/17 01/30/17 01/30/17 02:16 06:44 09:00 Temperature 98.4 F 97.4 F L Pulse Rate 71 79 Respiratory 20 20 18 Rate Blood Pressure 143/69 155/77 O2 Sat by Pulse 98 Oximetry (%) 01/30/17 10:00 Temperature 97.6 F Pulse Rate 74 Respiratory 18 Rate Blood Pressure 156/78 O2 Sat by Pulse Oximetry (%) Intake & Output 01/28/17 01/29/17 01/30/17 01/31/17 07:59 07:59 07:59 07:59 Intake Total 237 369 1332 Output Total 800 600 Balance 504 4 880 Weight 180 lb 13.313 oz nad, calm jvd flat, neck supple ppm site c/d/i ctab, nl effort rrr nl s1, s2 2/6 murmur at apex. + bs soft nt nd no e/c/c no carotid bruits diminished dp/pt alert no jaundice, diaphoresis. no CBC, BMP today tele: As-Mellowing Machine Operator, Ap-Mellowing Machine Operator. recdurrent episodes of nsvt. One 10 beat run of vt. Imaging - Results EKG: Image Reviewed (ECG on 01/28/2017 at 09:13 100% V-paced) Other: Report Reviewed (Echo in 01/2012 showed normal LV with RV pacemaker and mod mr, mitral annular calcification. rvsp 41) cxr: images and report reviewed, no chf. head ct: no acute pathology, chronic microvascular changes, chronic lacunar infarct. atherosclerosis of carotids/verts. 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 RV biopsy nonspecific, neg for amyloid, etc. Assessment/Plan 81 y.o. with pmh of HCM s/p ICD for primary prevention, CHB s/p st mariely, dual lead ppm, PAD (s/p LOSS PREVENTION AGENT of left LE), htn, HL, dchf on lasix, IDDM, GERD who p/ w dizziness/weakness/gait disturbance/? tia, hospital course complicated by + troponin and nsvt on tele. Dizziness, resolved. -Undergoing neurological eval for TIA given asymmetric leg weakness. carotid u /s pending. does not know which hospital he is at. Poor historian, unclear to me if he has cognitive deficits. Will defer to neuro. -recurrent NSVT with 10 beat run of vt (asx) 01/30. pt with HCM s/p ICD for primary prevention. dizziness may either be related to hcm or nsvt. uptitrating metoprolol and holding lisinopril, lasix as mentioned below. BMP, Mg, cardiac enzymes ordered for today. Of note, mildly hyperkalemic on admit. - will interrogate ICD tuesday. Troponin elevation -Troponin with intermediate elevation x 2 flat trend - 0.16 to 0.14, CK-MB 8 to 7 (normal index). repeating CE's today 01/30. -Would contrinue asa, statin, metoprolol, ranexa -ICD interrogation to check for shocks/arrhythmias. -May need dobutamine stress to evaluate for inducible lvot obstruction and/or ischemia . will repeat echo. -Keep on tele HCM s/p st. mariely ICD for primary prevention (also with chb) - with frequent nsvt on tele. --> on metoprolol 50 mg bid per office notes, will uptitrate. - hold lasix, lisinopril and continue gentle IVF to optimize hcm hemodynamics. - recent office ICD/ppm interrogation 10/2016 with nl fn/lead parameters and no events. will repeat ICD interrogation, con't tele monitoring. - consideration for stress testing as above. dchf - does not appear volume up at this time. given hcm will hold lasix. con't maintenance IVF for now. may be able to stop tomorrow. daily weights, bmp. HTN -BP initially elevated. med adjustments above, con't to monitor PAD (s/p LOSS PREVENTION AGENT of left LE) - con't asa, statin. ? contributing to LE weakness. will repeat arterial studies. CKD ? baseline. - on maintenance IVF with some initial improvement in Cr. con't for now. - monitor for recurrence of hyperkalemia
[2017-01-30] MEDS ORDERED: METOPROLOL TARTRATE 25 MG TABLET (FP) PO ONE (17:45)
[2017-01-30 20:12] LABS: ANION GAP 5 (8-16); CALCIUM 8.4 mg/dL (8.5-10.1); CO2 29 mmol/L (21-32); CREATININE 1.8 mg/dL (0.7-1.3); GLUCOSE,RANDOM 155 mg/dL (74-106)
[2017-01-30 20:13] LABS: CPK 256 IU/L (39-308); TROPONIN I 0.17 ng/ml (0.00-0.05)
[2017-01-30] MEDS: METOPROLOL SUCCINATE 50 MG TAB.SR.24H (FP) PO SCH (21:37)
[2017-01-30] MEDS: ATORVASTATIN CA 40 MG TABLET (FP) PO SCH (21:37)
[2017-01-30] MEDS ORDERED: METOPROLOL SUCCINATE 25 MG TAB.SR.24H (FP) PO SCH (22:00)
[2017-01-31] MEDS: SODIUM CHLORIDE 1,000 ML IV SCH (02:50)
[2017-01-31] MEDS: INSULIN (NOVOLOG MIX 70/30) 100 UNITS/ML MDV SQ SCH ×2 (06:04→16:28)
[2017-01-31] MEDS: INSULIN SLIDING SCALE (NOVOLOG) 1 VIAL SQ SCH ×4 (06:05→21:28)
[2017-01-31 07:28] LABS: ALBUMIN 2.6 g/dl (3.4-5.0); ALK PHOS 70 U/L (45-117); ANION GAP 8 (8-16); BILIRUBIN,TOTAL 0.4 mg/dL (0.2-1.0); CALCIUM 8.3 mg/dL (8.5-10.1); CO2 24 mmol/L (21-32); CREATININE 1.5 mg/dL (0.7-1.3); GLUCOSE,RANDOM 60 mg/dL (74-106); MAGNESIUM 1.8 mg/dL (1.8-2.4); SGOT/AST 26 U/L (15-37); SGPT/ALT 25 U/L (12-78); TOT PROT 5.7 g/dl (6.4-8.2)
[2017-01-31] MEDS: PANTOPRAZOLE 40 MG TABLET (FP) PO SCH (09:16)
[2017-01-31] MEDS: RANOLAZINE E.R. 500 MG TABLET (FP) PO SCH ×2 (09:17→21:32)
[2017-01-31] MEDS: ASPIRIN 325 MG ENTERIC COATED TABLET (FP) PO SCH (09:18)
[2017-01-31] MEDS: METOPROLOL SUCCINATE 50 MG TAB.SR.24H (FP) PO SCH ×2 (09:18→21:32)
[2017-01-31] MEDS: HEPARIN NA (PORCINE) 5,000 UNITS/ML 1ML VIAL SQ SCH ×2 (09:18→21:31)
--- NOTE | 2017-01-31 10:15 | PN ---
Progress Note, Physician Chief Complaint: dizzy History of Present Illness: states the prior dizziness has stopped. reports feeling that he could not stand up while in ER, kept falling to one side or another. denies feeling like he would black out. denies cp, sob, palpitations never cigs - Current Medication List Current Medications: Active Medications Acetaminophen (Tylenol -) 650 mg PO Q6H PRN PRN Reason: FEVER OR PAIN Last Admin: 01/29/17 06:25 Dose: 650 mg Aspirin (Ecotrin -) 325 mg PO DAILY [facility] Last Admin: 01/31/17 09:18 Dose: 325 mg Atorvastatin Calcium (Lipitor -) 40 mg PO HS [facility] Last Admin: 01/30/17 21:37 Dose: 40 mg Heparin Sodium (Porcine) (Heparin -) 5,000 unit SQ BID [facility] Last Admin: 01/31/17 09:18 Dose: 5,000 unit Sodium Chloride (Normal Saline -) 1,000 mls @ 42 mls/hr IV ASDIR [facility] Last Admin: 01/31/17 02:50 Dose: 42 mls/hr Insulin Aspart (Novolog Mix 70/30 Vial) 30 units SQ BID@0700,1630 [facility] Last Admin: 01/31/17 06:04 Dose: Not Given Insulin Aspart (Novolog Vial Sliding Scale -) 0 vial SQ ACHS [facility] PRN Reason: Protocol Last Admin: 01/31/17 06:05 Dose: Not Given Metoprolol Succinate (Toprol Xl -) 50 mg PO BID [facility] Last Admin: 01/31/17 09:18 Dose: 50 mg Pantoprazole Sodium (Protonix -) 40 mg PO DAILY [facility] Last Admin: 01/31/17 09:16 Dose: 40 mg Ranolazine (Ranexa -) 1,000 mg PO BID [facility] Last Admin: 01/31/17 09:17 Dose: 1,000 mg - Objective Vital Signs: Vital Signs Temperature 97.4 F L 01/31/17 05:59 Pulse Rate 87 01/31/17 05:59 Respiratory Rate 20 01/31/17 05:59 Blood Pressure 147/89 01/31/17 05:59 O2 Sat by Pulse Oximetry (%) 98 01/30/17 21:00 Constitutional: Yes: No Distress, Calm Eyes: No: Sclera Icterus HENT: No: Nasal Congestion Cardiovascular: Yes: Regular Rate and Rhythm, S1, S2, Other (PMI non diplaced). No: Gallop, Murmur Respiratory: Yes: CTA Bilaterally. No: Accessory Muscle Use, Rales, Wheezes Gastrointestinal: Yes: Normal Bowel Sounds, Soft. No: Tenderness Musculoskeletal: Yes: Other (No kyphosis) Extremities: No: Cold, Cyanosis Edema: No Integumentary: No: Jaundice Neurological: Yes: Alert, Oriented (x3) Psychiatric: No: Agitated Labs: CBC, BMP 01/29/17 05:30 01/31/17 06:20 INR, PTT INR 1.14 (0.82-1.09) 01/28/17 10:00 - ....Imaging EKG: Other (tele: NSR, V-pacedl NSVT runs of 5b and 7b) Assessment/Plan head ct: no acute pathology, chronic microvascular changes, chronic lacunar infarct. atherosclerosis of carotids/verts. 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 RV biopsy nonspecific, neg for amyloid, etc. Assessment/Plan 81 y.o. with pmh of HCM s/p ICD for primary prevention, CHB s/p st mariely, dual lead ppm, PAD (s/p SECURITY INCIDENT RESPONSE ENGINEER of left LE), htn, HL, dchf on lasix, IDDM, GERD who p/ w dizziness/weakness/gait disturbance/? tia, hospital course complicated by + troponin and nsvt on tele. Acute vertigo, RLE weakness: - neuro input appreciated--rule out TIA/CVA. for rpt CT head, carotids (cannot get MRI) - no h/o resting LVOT obstruction or mitral LINDA on prior echoes, no report of provocative maneuvers done previously (and no Brockenbrough maneuver recorded at time of cath), no murmur heard here. HOWEVER, his sx's do not sound concerning for LV outflow tract obstruction sx's, more likely BPPV or TIA/CVA. -recurrent NSVT with 10 beat run of vt (asx) 01/30. pt with HCM s/p ICD for primary prevention. device to be interrogated today to rule out sustained VT or therapies. - continuing home metoprolol. - holding lisinopril, lasix while here (as mentioned below). Of note, mildly hyperkalemic on admit. - will interrogate ICD tuesday. Troponin elevation -Troponin with intermediate elevation x 3, flat trend, not c/w ACS--likely secondary to known severe septal hypertrophy from HCM. -continue asa, statin, metoprolol, ranexa -no sustained arrhythmias or shocks on ICD check -for rpt echo here -can defer stress testing Nonsustained VT: -? due to underlying HCM substrate with severe ESTEFANIA -however, per office notes, his ICD was primary prevention and there has been no documented history of ventricular arrhythmias. in 81 yo pt with HCM with no prior VT/VF, the statistical likelihood of malignant arrhythmia is very low ( close to zero probably). -K and Mag both good -B-blockear as doing -cont tele for today--if stable, can d/c tomorrow HCM s/p st. mariely ICD for primary prevention (also with chb) - with frequent nsvt on tele. --> on metoprolol 50 mg bid per office notes, dose corrected here. - hold lasix, lisinopril and continue gentle IVF to optimize hcm hemodynamics. - repeat device check performed in hospital shows no episodes VT/VF or therapies. - if he does not develop sx's suggestive of LV outflow tract obstruction, no need for provocative echo testing h/o chronic dchf - does not appear volume up at this time. given hcm and potential for provoking LVOT obstruction (if has mitral LINDA), will hold lasix. - 01/31: creat back down to baseline (1.5)--will d/c IVF given pt substrate increases his risk for acute diast CHF with minimal excess volume load - cont holding lasix, observe clinically HTN -BP initially elevated. was on metopr 25 bid--incr'd to home dose 50 bid on 01/30 -lisinopril held, as above -given absence of LVOT obstruction physiology, no need to avoid vasodilators. -01/31: bp's 140s-160s--if remains same trend tomorrow, would resume BLANKA or add amlodipine PAD (s/p SECURITY INCIDENT RESPONSE ENGINEER of left LE) - con't asa, statin. ? contributing to LE weakness. - for repeat arterial studies. CKD ? baseline. - creat 1.5 in office in 2015 - on maintenance IVF, fluctuating 1.5-1.8 here--? this is his baseline - per pmd +/- renal if indicated - monitor for recurrence of hyperkalemia
--- NOTE | 2017-01-31 11:40 | PN ---
Progress Note (short form) - Note Progress Note: patient seen and examined today Comfortable and feels better Cardiology follow-up noted Denies chest pain or shortness of breath or abdominal pain Vital Signs Temp 98 F 01/31/17 10:00 Pulse 80 01/31/17 10:00 Resp 18 01/31/17 10:00 BP 157/82 01/31/17 10:00 Pulse Ox 98 01/30/17 21:00 Intake & Output 01/30/17 01/30/17 01/31/17 11:59 23:59 11:59 Intake Total 504 1730 230 Output Total 600 Balance 504 1130 230 Weight 194 lb 3.2 oz Intake: IV 504 462 Normal Saline - 1,000 ml 504 462 @ 42 mls/hr IV ASDIR [facility] Rx#:[id number] IVPB 600 Oral 668 230 Output: Urine 600 Void 600 Other: Voiding Method Toilet Urinal Toilet # Unmeasured Voids Void 1 Weight Measurement Method Standing Scale Active Medications Acetaminophen (Tylenol -) 650 mg PO Q6H PRN PRN Reason: FEVER OR PAIN Last Admin: 01/29/17 06:25 Dose: 650 mg Aspirin (Ecotrin -) 325 mg PO DAILY [facility] Last Admin: 01/31/17 09:18 Dose: 325 mg Atorvastatin Calcium (Lipitor -) 40 mg PO HS [facility] Last Admin: 01/30/17 21:37 Dose: 40 mg Heparin Sodium (Porcine) (Heparin -) 5,000 unit SQ BID [facility] Last Admin: 01/31/17 09:18 Dose: 5,000 unit Sodium Chloride (Normal Saline -) 1,000 mls @ 42 mls/hr IV ASDIR [facility] Last Admin: 01/31/17 02:50 Dose: 42 mls/hr Insulin Aspart (Novolog Mix 70/30 Vial) 30 units SQ BID@0700,1630 [facility] Last Admin: 01/31/17 06:04 Dose: Not Given Insulin Aspart (Novolog Vial Sliding Scale -) 0 vial SQ ACHS [facility] PRN Reason: Protocol Last Admin: 01/31/17 06:05 Dose: Not Given Metoprolol Succinate (Toprol Xl -) 50 mg PO BID [facility] Last Admin: 01/31/17 09:18 Dose: 50 mg Pantoprazole Sodium (Protonix -) 40 mg PO DAILY [facility] Last Admin: 01/31/17 09:16 Dose: 40 mg Ranolazine (Ranexa -) 1,000 mg PO BID [facility] Last Admin: 01/31/17 09:17 Dose: 1,000 mg CBC, BMP 01/29/17 05:30 01/31/17 06:20 Physical Examination Constitutional: Yes: No Distress, comfortable Eyes: Yes: Conjunctiva Clear HENT: Yes: WNL/ Neck: Yes: Supple Cardiovascular: Yes: Regular Rate and Rhythm Respiratory: Yes: CTA Bilaterally Gastrointestinal: Yes: Normal Bowel Sounds, Soft/ non tender. Edema: No Neurological: Yes: WNL, Alert, Cran Nerves II-XII Intact ...Motor Strength: WNL-moves all extremities Psychiatric: Yes: Alert Imaging - Results Chest X-ray: Report Reviewed Cat Scan: Report Reviewed EKG: Report Reviewed Assessment/Plan clinically stable--Improved Discontinue IV fluids--agree with cardiology continue present care. monitor blood sugar and pressure Echocardiogram pending Ultrasound carotid okay daily oob- chair neurology/ cardiology on case. ppm check will follow monitor on tele Problem List - Problems (1) TIA (transient ischemic attack) Code(s): G45.9 - TRANSIENT CEREBRAL ISCHEMIC ATTACK, UNSPECIFIED (2) Dizziness and giddiness Code(s): R42 - DIZZINESS AND GIDDINESS (3) IDDM (insulin dependent diabetes mellitus) Code(s): E11.9 - TYPE 2 DIABETES MELLITUS WITHOUT COMPLICATIONS Z79.4 - [facility]FP (CURRENT) USE OF INSULIN (4) Pacemaker Code(s): Z95.0 - PRESENCE OF CARDIAC PACEMAKER
[2017-01-31] MEDS ORDERED: INSULIN (NOVOLOG) ASPART 100 UNITS/ML 10ML VIAL ONE ×2 (11:56→16:27)
[2017-01-31] MEDS ORDERED: INSULIN (NOVOLOG MIX 70/30) 100 UNITS/ML MDV SQ ONE (16:27)
[2017-01-31] MEDS: ATORVASTATIN CA 40 MG TABLET (FP) PO SCH (21:32)
[2017-02-01] MEDS: INSULIN (NOVOLOG MIX 70/30) 100 UNITS/ML MDV SQ SCH ×2 (06:14→17:10)
[2017-02-01] MEDS: INSULIN SLIDING SCALE (NOVOLOG) 1 VIAL SQ SCH ×4 (06:15→21:31)
--- NOTE | 2017-02-01 08:40 | PN ---
Progress Note (short form) - Note Progress Note: Patient awake and comfortable Complaining of little upset stomach earlier today Denies chest pain or shortness of breath Overall feels better afebrile Vital Signs Temp 98.3 F 02/01/17 05:51 Pulse 64 02/01/17 05:51 Resp 18 02/01/17 05:51 BP 137/96 02/01/17 05:51 Pulse Ox 99 01/31/17 21:00 Intake & Output 01/31/17 01/31/17 02/01/17 11:59 23:59 11:59 Intake Total 230 560 Balance 230 560 Weight 194 lb 3.2 oz 195 lb 12.8 oz Intake: Oral 230 560 Other: Voiding Method Toilet Toilet # Unmeasured Voids Void 2 Weight Measurement Method Standing Scale Standing Scale Active Medications Acetaminophen (Tylenol -) 650 mg PO Q6H PRN PRN Reason: FEVER OR PAIN Last Admin: 01/29/17 06:25 Dose: 650 mg Aspirin (Ecotrin -) 325 mg PO DAILY [facility] Last Admin: 01/31/17 09:18 Dose: 325 mg Atorvastatin Calcium (Lipitor -) 40 mg PO HS [facility] Last Admin: 01/31/17 21:32 Dose: 40 mg Heparin Sodium (Porcine) (Heparin -) 5,000 unit SQ BID [facility] Last Admin: 01/31/17 21:31 Dose: 5,000 unit Insulin Aspart (Novolog Mix 70/30 Vial) 30 units SQ BID@0700,1630 [facility] Last Admin: 02/01/17 06:14 Dose: 30 units Insulin Aspart (Novolog Vial Sliding Scale -) 0 vial SQ ACHS [facility] PRN Reason: Protocol Last Admin: 02/01/17 06:15 Dose: Not Given Metoprolol Succinate (Toprol Xl -) 50 mg PO BID [facility] Last Admin: 01/31/17 21:32 Dose: 50 mg Pantoprazole Sodium (Protonix -) 40 mg PO DAILY [facility] Last Admin: 01/31/17 09:16 Dose: 40 mg Ranolazine (Ranexa -) 1,000 mg PO BID [facility] Last Admin: 01/31/17 21:32 Dose: 1,000 mg CBC, BMP 01/29/17 05:30 01/31/17 06:20 Physical Examination Constitutional: Yes: No Distress, comfortable Eyes: Yes: Conjunctiva Clear HENT: Yes: WNL/ Neck: Yes: Supple Cardiovascular: Yes: Regular Rate and Rhythm Respiratory: Yes: CTA Bilaterally Gastrointestinal: Yes: Normal Bowel Sounds, Soft/ non tender. Edema: No Neurological: Yes: WNL, Alert, Cran Nerves II-XII Intact ...Motor Strength: WNL-moves all extremities Psychiatric: Yes: Alert Imaging - Results Chest X-ray: Report Reviewed Cat Scan: Report Reviewed EKG: Report Reviewed Assessment/Plan clinically stable--Improved continue present care. monitor blood sugar and pressure Echocardiogram pending Ultrasound carotid okay daily oob- chair neurology/ cardiology on case. ppm check will follow monitor on tele. Overall stable discharge planning--Once cleared by cardiology Anticipated later today or tomorrow. daily out of bed to chair. Physical therapy. Problem List - Problems (1) TIA (transient ischemic attack) Code(s): G45.9 - TRANSIENT CEREBRAL ISCHEMIC ATTACK, UNSPECIFIED (2) Dizziness and giddiness Code(s): R42 - DIZZINESS AND GIDDINESS (3) IDDM (insulin dependent diabetes mellitus) Code(s): E11.9 - TYPE 2 DIABETES MELLITUS WITHOUT COMPLICATIONS Z79.4 - [facility] (CURRENT) USE OF INSULIN (4) Pacemaker Code(s): Z95.0 - PRESENCE OF CARDIAC PACEMAKER
[2017-02-01] MEDS: PANTOPRAZOLE 40 MG TABLET (FP) PO SCH (09:30)
[2017-02-01] MEDS: HEPARIN NA (PORCINE) 5,000 UNITS/ML 1ML VIAL SQ SCH ×2 (09:30→21:31)
[2017-02-01] MEDS: RANOLAZINE E.R. 500 MG TABLET (FP) PO SCH ×2 (09:30→21:32)
[2017-02-01] MEDS: ASPIRIN 325 MG ENTERIC COATED TABLET (FP) PO SCH (09:30)
[2017-02-01] MEDS: METOPROLOL SUCCINATE 50 MG TAB.SR.24H (FP) PO SCH ×2 (09:30→21:32)
--- NOTE | 2017-02-01 15:51 | PN ---
Progress Note (short form) - Note Progress Note: Chief Complaint: dizzy History of Present Illness: denies cp, sob, palpitations. + epigastric discomfort today. tingling sensation/weakness of rt leg/calf. never cigs Current Medications Acetaminophen (Tylenol -) 650 mg PO Q6H PRN PRN Reason: FEVER OR PAIN Last Admin: 01/29/17 06:25 Dose: 650 mg Aspirin (Ecotrin -) 325 mg PO DAILY [facility] Last Admin: 02/01/17 09:30 Dose: 325 mg Atorvastatin Calcium (Lipitor -) 40 mg PO HS [facility] Last Admin: 01/31/17 21:32 Dose: 40 mg Heparin Sodium (Porcine) (Heparin -) 5,000 unit SQ BID [facility] Last Admin: 02/01/17 09:30 Dose: 5,000 unit Insulin Aspart (Novolog Mix 70/30 Vial) 30 units SQ BID@0700,1630 [facility] Last Admin: 02/01/17 06:14 Dose: 30 units Insulin Aspart (Novolog Vial Sliding Scale -) 0 vial SQ ACHS [facility] PRN Reason: Protocol Last Admin: 02/01/17 12:16 Dose: Not Given Metoprolol Succinate (Toprol Xl -) 50 mg PO BID [facility] Last Admin: 02/01/17 09:30 Dose: 50 mg Pantoprazole Sodium (Protonix -) 40 mg PO DAILY [facility] Last Admin: 02/01/17 09:30 Dose: 40 mg Ranolazine (Ranexa -) 1,000 mg PO BID [facility] Last Admin: 02/01/17 09:30 Dose: 1,000 mg Vital Signs - 24 hr 01/31/17 01/31/17 01/31/17 15:32 18:00 19:54 Temperature 98.7 F 97.8 F 98.0 F Pulse Rate 64 64 65 Respiratory 18 18 18 Rate Blood Pressure 148/73 146/67 134/74 O2 Sat by Pulse Oximetry (%) 01/31/17 02/01/17 02/01/17 21:00 02:59 05:51 Temperature 97.8 F 98.3 F Pulse Rate 67 64 Respiratory 18 18 Rate Blood Pressure 135/76 137/96 O2 Sat by Pulse 99 Oximetry (%) 02/01/17 02/01/17 10:00 14:00 Temperature 98.5 F 97.4 F L Pulse Rate 66 60 Respiratory 18 Rate Blood Pressure 124/67 123/66 O2 Sat by Pulse 98 Oximetry (%) Intake & Output 01/30/17 01/31/17 02/01/17 02/02/17 07:59 07:59 07:59 07:59 Intake Total 804 1730 790 800 Output Total 800 600 Balance 4 1130 790 800 Weight 194 lb 3.2 oz 195 lb 12.8 oz Constitutional: Yes: No Distress, Calm Eyes: No: Sclera Icterus HENT: No: Nasal Congestion Cardiovascular: Yes: Regular Rate and Rhythm, S1, S2, Other (PMI non diplaced). No: Gallop, Murmur Respiratory: Yes: CTA Bilaterally. No: Accessory Muscle Use, Rales, Wheezes Gastrointestinal: Yes: Normal Bowel Sounds, Soft. No: Tenderness Musculoskeletal: Yes: Other (No kyphosis) Extremities: No: Cold, Cyanosis Edema: No Integumentary: No: Jaundice Neurological: Yes: Alert, Oriented (x3) Psychiatric: No: Agitated diminished dp/pt Labs: no CBC, BMP - ....Imaging EKG: Other (tele: As-[place], Ap-[place]. recurrent episodes of nsvt. One 11 beat run of ? vt. echo 01/2017: tds. mild conc lvh. apical wall motion abnormality may reflect ppm activation. rv size/fn not assessed. 1+ vonnie. mild-mod mr. mod tr. rvsp 45. Assessment/Plan head ct: no acute pathology, chronic microvascular changes, chronic lacunar infarct. atherosclerosis of carotids/verts. repeat head ct 01/30: no sig change carotid u/s 01/2017: mild plaque. no stenosis of internal carotid. possible left external carotid occlusion echo 07/2016: sev ESTEFANIA, no lvot obs, no linda, nl lvef, nl rv, mild lae, mod tr Periph cath/CADMIUM BURNER 11/2014: left SFA CHEMIC MANGLER--Atherectomy and AGUEDA, residual BTK disease in right LE--medical rx CMR 03/2011: Severe ESTEFANIA c/w HCM, no LINDA, normal bi-V function, focal scarring R/LHC (2010): normal EDP, PWCP and PA/RV/RA pressures; low cardiac output (CI 2.3) with hyperdynamic LV fxn (no Brockenbrough done); normal cor.s. RV biopsy nonspecific, neg for amyloid, etc. Assessment/Plan 81 y.o. with pmh of HCM s/p ICD for primary prevention, CHB s/p st mariely, dual lead ppm, PAD (s/p CADMIUM BURNER of left LE), htn, HL, dchf on lasix, IDDM, GERD who p/ w dizziness/weakness/gait disturbance/? tia, hospital course complicated by + troponin and nsvt on tele. Acute vertigo, RLE weakness: - neuro input appreciated--rule out TIA/CVA. - ? pad contributing to RLE discomfort. - no h/o resting LVOT obstruction or mitral LINDA on prior echoes, no report of provocative maneuvers done previously (and no Brockenbrough maneuver recorded at time of cath), no murmur heard here. HOWEVER, his sx's do not sound concerning for LV outflow tract obstruction sx's, more likely BPPV or TIA/CVA. -recurrent NSVT with 10 beat run of vt (asx) 01/30. pt with HCM s/p ICD for primary prevention. Nl function and no events on interrogation - continuing home metoprolol - holding lisinopril, lasix while here (as mentioned below). Of note, mildly hyperkalemic on admit. Troponin elevation -Troponin with intermediate elevation x 3, flat trend, not c/w ACS--likely secondary to known severe septal hypertrophy from HCM. -continue asa, statin, metoprolol, ranexa -no sustained arrhythmias or shocks on ICD check - repeat echo tds for wall motion, but grossly normal function. -can defer stress testing Nonsustained VT: -? due to underlying HCM substrate with severe ESTEFANIA -however, per office notes, his ICD was primary prevention and there has been no documented history of ventricular arrhythmias. in 81 yo pt with HCM with no prior VT/VF, the statistical likelihood of malignant arrhythmia is very low ( close to zero probably). - Frequent mode switch on interrogation, episodes of nsvt may actually be SVT. -K and Mag both good -B-anat as doing - OK to d/c tele HCM s/p st. mariely ICD for primary prevention (also with chb) - with frequent nsvt on tele. --> on metoprolol 50 mg bid per office notes, dose corrected here. - held lasix, lisinopril and given gentle IVF to optimize hcm hemodynamics. But no obvious lvot obstruction on echo and clinical picture not c/w lvot obstruction. No need for further provocative testing at this time. - repeat device check performed in hospital shows no episodes VT/VF or therapies. h/o chronic dchf - does not appear volume up at this time. given hcm and potential for provoking LVOT obstruction (if has mitral LIDNA), will hold lasix. - 01/31: creat back down to baseline (1.5)--will d/c IVF given pt substrate increases his risk for acute diast CHF with minimal excess volume load - 02/01: no signs of volume overload, cont holding lasix, observe clinically HTN -BP initially elevated. was on metopr 25 bid--incr'd to home dose 50 bid on 01/30 -given absence of LVOT obstruction physiology, no need to avoid vasodilators. If bp increases can add back lisinopril. PAD (s/p CADMIUM BURNER of left LE) - con't asa, statin. ? contributing to RLE weakness. - arterial studies pending. If symptoms thought to have vascular etiology then can consider stopping metoprolol (which may exacerbate pad) and switching to verapamil. CKD ? baseline. - creat 1.5 in office in 2014 -Improved to 1.5 on IVF --> now stopped. - monitor for recurrence of hyperkalemia
[2017-02-01] MEDS: ATORVASTATIN CA 40 MG TABLET (FP) PO SCH (21:31)
[2017-02-02] MEDS: INSULIN SLIDING SCALE (NOVOLOG) 1 VIAL SQ SCH ×2 (06:56→11:49)
[2017-02-02] MEDS ORDERED: INSULIN (NOVOLOG MIX 70/30) 100 UNITS/ML MDV SQ SCH (07:00)
[2017-02-02] MEDS: METOPROLOL SUCCINATE 50 MG TAB.SR.24H (FP) PO SCH (09:02)
[2017-02-02] MEDS: ASPIRIN 325 MG ENTERIC COATED TABLET (FP) PO SCH (09:02)
[2017-02-02] MEDS: HEPARIN NA (PORCINE) 5,000 UNITS/ML 1ML VIAL SQ SCH (09:02)
[2017-02-02] MEDS: RANOLAZINE E.R. 500 MG TABLET (FP) PO SCH (09:02)
[2017-02-02] MEDS: PANTOPRAZOLE 40 MG TABLET (FP) PO SCH (09:02)
[2017-02-02 11:10] VITALS: BP 133/76; PULSE 66; TEMP 98
--- NOTE | 2017-02-02 11:31 | PN ---
Progress Note (short form) - Note Progress Note: Progress Note: Chief Complaint: dizzy History of Present Illness: denies cp, sob, palpitations, dizzy Current Medications Generic Name Dose Route Start Last Admin Trade Name Genny PRN Reason Stop Dose Admin Acetaminophen 650 mg 01/28/17 18:25 01/29/17 06:25 Tylenol - PO 650 mg Q6H PRN Administration FEVER OR PAIN Aspirin 325 mg 01/29/17 10:00 02/02/17 09:02 Ecotrin - PO 325 mg DAILY [facility] Administration Atorvastatin Calcium 40 mg 01/29/17 22:00 02/01/17 21:31 Lipitor - PO 40 mg HS [facility] Administration Heparin Sodium (Porcine) 5,000 unit 01/28/17 22:00 02/02/17 09:02 Heparin - SQ 5,000 unit BID [facility] Administration Insulin Aspart 0 vial 01/28/17 22:00 02/02/17 06:56 Novolog Vial Sliding Scale - SQ Not Given ACHS [facility] Protocol Insulin Aspart 25 units 02/02/17 07:00 02/02/17 07:14 Novolog Mix 70/30 Vial SQ Not Given BID@0700,1630 [facility] Metoprolol Succinate 50 mg 01/30/17 22:00 02/02/17 09:02 Toprol Xl - PO 50 mg BID [facility] Administration Pantoprazole Sodium 40 mg 01/29/17 13:15 02/02/17 09:02 Protonix - PO 40 mg DAILY [facility] Administration Ranolazine 1,000 mg 01/28/17 22:00 02/02/17 09:02 Ranexa - PO 1,000 mg BID [facility] Administration Vital Signs Period Temp Pulse Resp BP Sys/Torres Pulse Ox Last 24 Hr 97.4 F-98.8 F 60-69 18-18 114-172/52-92 96-97 Constitutional: Yes: No Distress, Calm Eyes: No: Sclera Icterus Cardiovascular: Yes: Regular Rate and Rhythm, S1, S2, Other (PMI non diplaced). No: Gallop, Murmur Respiratory: Yes: CTA Bilaterally. No: Accessory Muscle Use, Rales, Wheezes Gastrointestinal: Yes: Normal Bowel Sounds, Soft. No: Tenderness Extremities: No: Cold, Cyanosis Edema: No Integumentary: No: Jaundice Neurological: Yes: Alert, Oriented (x3) Psychiatric: No: Agitated Labs: CBC, BMP 01/29/17 05:30 01/31/17 06:20 tele: sr, as-[facility] [place] echo 01/2017: tds. mild conc lvh. apical wall motion abnormality may reflect ppm activation. rv size/fn not assessed. 1+ vonnie. mild-mod mr. mod tr. rvsp 45. head ct: no acute pathology, chronic microvascular changes, chronic lacunar infarct. atherosclerosis of carotids/verts. repeat head ct 01/30: no sig change carotid u/s 01/2017: mild plaque. no stenosis of internal carotid. 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 RV biopsy nonspecific, neg for amyloid, etc. Assessment/Plan 81 y.o. with pmh of HCM s/p ICD for primary prevention, CHB s/p st mariely, dual lead ppm, PAD (s/p FURNACE OPERATOR AND TENDER of left LE), htn, HL, dchf on lasix, IDDM, GERD who p/ w dizziness/weakness/gait disturbance/? tia, hospital course complicated by + troponin and nsvt on tele. Acute vertigo, RLE weakness: - neuro input appreciated--rule out TIA/CVA. - ? pad contributing to RLE discomfort. - no h/o resting LVOT obstruction or mitral LINDA on prior echoes, no report of provocative maneuvers done previously (and no Brockenbrough maneuver recorded at time of cath), no murmur heard here. HOWEVER, his sx's do not sound concerning for LV outflow tract obstruction sx's, more likely BPPV or TIA/CVA. -recurrent NSVT with 10 beat run of vt (asx) 01/30. pt with HCM s/p ICD for primary prevention. Nl function and no events on interrogation -continuing home metoprolol -holding lisinopril, lasix while here (as mentioned below). Of note, mildly hyperkalemic on admit. Troponin elevation -Troponin with intermediate elevation x 3, flat trend, not c/w ACS--likely secondary to known severe septal hypertrophy from HCM. -continue asa, statin, metoprolol, ranexa -no sustained arrhythmias or shocks on ICD check -repeat echo tds for wall motion, but grossly normal function. -can defer stress testing Nonsustained VT: -? due to underlying HCM substrate with severe ESTEFANIA -however, per office notes, his ICD was primary prevention and there has been no documented history of ventricular arrhythmias. in 81 yo pt with HCM with no prior VT/VF, the statistical likelihood of malignant arrhythmia is very low ( close to zero probably). - Frequent mode switch on interrogation, episodes of nsvt may actually be SVT. -K and Mag both good -B-anat as doing - OK to d/c tele HCM s/p st. mariely ICD for primary prevention (also with chb) - with frequent nsvt on tele. --> on metoprolol 50 mg bid per office notes, dose corrected here. - held lasix, lisinopril and given gentle IVF to optimize hcm hemodynamics. But no obvious lvot obstruction on echo and clinical picture not c/w lvot obstruction. No need for further provocative testing at this time. - repeat device check performed in hospital shows no episodes VT/VF or therapies. h/o chronic dchf - does not appear volume up at this time. given hcm and potential for provoking LVOT obstruction (if has mitral LINDA), will hold lasix. - 01/31: creat back down to baseline (1.5)--will d/c IVF given pt substrate increases his risk for acute diast CHF with minimal excess volume load - 02/01-4: no signs of volume overload, cont holding lasix, observe clinically HTN -BP initially elevated. was on metopr 25 bid--incr'd to home dose 50 bid on 01/30 -given absence of LVOT obstruction physiology, no need to avoid vasodilators. If bp increases can add back lisinopril. PAD (s/p FURNACE OPERATOR AND TENDER of left LE) - con't asa, statin. ? contributing to RLE weakness. - arterial studies pending. If symptoms thought to have vascular etiology then can consider stopping metoprolol (which may exacerbate pad) and switching to verapamil. CKD ? baseline. - creat 1.5 in office in 2014 -Improved to 1.5 on IVF --> now stopped. - monitor for recurrence of hyperkalemia
--- NOTE | 2017-02-02 11:45 | DS ---
Physical Examination Vital Signs: Vital Signs Temperature 98 F 02/02/17 10:00 Pulse Rate 66 02/02/17 10:00 Respiratory Rate 18 02/02/17 10:00 Blood Pressure 133/76 02/02/17 10:00 O2 Sat by Pulse Oximetry (%) 97 02/02/17 09:00 Constitutional: Yes: No Distress, Calm Cardiovascular: Yes: Regular Rate and Rhythm Respiratory: Yes: CTA Bilaterally Gastrointestinal: Yes: Normal Bowel Sounds, Soft, Abdomen, Obese. No: Distention, Tenderness Edema: No Labs: CBC, BMP 01/29/17 05:30 01/31/17 06:20 Discharge Summary Reason For Visit: CVA Current Active Problems CVA (cerebral vascular accident) (Acute) Dizziness and giddiness (Acute) IDDM (insulin dependent diabetes mellitus) (Acute) Pacemaker (Acute) TIA (transient ischemic attack) (Acute) Hospital Course: Pt admitted for dizziness and gait disturbance Head CT x 2-- negative seen by Neurology and Cardiology Carotid doppler negative for stenosis no orthostatic BP lasix discontinued Renal dysfunction improved on iv fluids PPM interrogated here Metoprolol adjusted pt ambulating better no further dizziness stable for dc home-- will need VNS for meds, vitals, risk of fall Condition: Improved - Instructions Disposition: HOME - Home Medications Comprehensive Discharge Medication List: Ambulatory Orders Omeprazole Magnesium [Prilosec (OTC)] 20 mg PO DAILY 12/15/11 Insulin (Novolog 70/30) [Novolog Mix 70/30 Flexpen -] 30 units SQ BIDI #0 pen Ranolazine [Ranexa] 1,000 mg PO BID #0 tab.er.12h 02/23/12 Aspirin Coated [Ecotrin -] 325 mg PO DAILY #30 tab 02/02/17 Insulin (Novolog 70/30) [Novolog Mix 70/30 Vial -] 15 units SQ BID@0700,1630 # 10 vial 02/02/17 Metoprolol Succinate [Toprol XL -] 50 mg PO BID #60 tab 02/02/17
== END 2017-02-02 13:08 | disposition home or self-care (01) | DRG 69 ==
LOC: JER 08:36 → JERBED 12:57 → J4W 15:31
PROVIDERS: ADMIT Internal Medicine; ATTEND Internal Medicine
DX: G45.9 Transient cerebral ischemic attack, unspecified (principal); I47.2 Ventricular tachycardia; I13.0 Hypertensive heart and chronic kidney disease with heart failure and stage 1 through stage 4 chronic kidney disease, or unspecified chronic kidney disease; I50.32 Chronic diastolic (congestive) heart failure; R42 Dizziness and giddiness; E11.9 Type 2 diabetes mellitus without complications; Z79.4 Long term (current) use of insulin; Z95.0 Presence of cardiac pacemaker; K21.9 Gastro-esophageal reflux disease without esophagitis; E11.22 Type 2 diabetes mellitus with diabetic chronic kidney disease; N18.9 Chronic kidney disease, unspecified; R26.9 Unspecified abnormalities of gait and mobility; I73.9 Peripheral vascular disease, unspecified
CPT/HCPCS: 36415; 70450-TC; 71020-TC; 80048; 80053; 80061; 81003; 81015; 82465; 82553; 83036; 83718; 83721; 83735; 84443; 84478; 84484; 85025; 85610; 86850; 86900; 86901; 93005; 93010; 93306-TC; 93880-TC; 93923; 97116-GP; 97162-GP; 99285-25; J1644

== ENCOUNTER 2017-05-09 14:02 | Inpatient (IN) | payer OTHER ==
--- NOTE | 2017-05-09 15:14 | PDOC ---
History of Present Illness - General Chief Complaint: Respiratory Stated Complaint: WEAKNESS History Source: Patient, Family Exam Limitations: No Limitations - History of Present Illness Initial Comments: This is an 82 YOM with h/o diastolic CHF, pacemaker use, CVA, IDDM, and prior PNA (last one year ago) who presents with progressive productive cough and SOB for the past 4 days which feels similar to his PNA last year. He additionally feels lightheaded and generally weak today. He had an incident this morning where he was attempting to stand up from bed and his legs became weak, and he slumped to the floor without hitting his head or losing consciousness. He was unable to pick himself up d/t lack of strength and his needed to call a family member to help stand him up, but he was not on the ground for an extended time. The patient and daughter deny any measured fever, chest pain, palpitations, abdominal pain, dysuria, or other symptoms. He got a flu vaccine this year and believes he has received the pneumovax in the past. Past History - Past Medical History Allergies/Adverse Reactions: Allergies Allergy/AdvReac Type Severity Reaction Status Date / Time No Known Allergies Allergy Verified 05/09/17 14:12 Home Medications: Ambulatory Orders Omeprazole Magnesium [Prilosec (OTC)] 20 mg PO DAILY 12/15/11 Insulin (Novolog 70/30) [Novolog Mix 70/30 Flexpen -] 30 units SQ BIDI #0 pen Ranolazine [Ranexa] 1,000 mg PO BID #0 tab.er.12h 02/23/12 Aspirin Coated [Ecotrin -] 325 mg PO DAILY #30 tab 02/02/17 Insulin (Novolog 70/30) [Novolog Mix 70/30 Vial -] 15 units SQ BID@0700,1630 # 10 vial 02/02/17 Metoprolol Succinate [Toprol XL -] 50 mg PO BID #60 tab 02/02/17 Atorvastatin Ca [Lipitor] 40 mg PO HS #30 tablet 02/03/17 Cardiac Disorders: Yes COPD: No Diabetes: Yes HTN: Yes - Surgical History Cardiac Surgery: Yes (Pacemaker) - Immunization History Immunization Up to Date: No - Suicide/Smoking/Psychosocial Hx Smoking Status: No Smoking History: Never smoked Have you smoked in the past 12 months: No Number of Cigarettes Smoked Daily: 0 Information on smoking cessation initiated: No Hx Alcohol Use: No Drug/Substance Use Hx: No Substance Use Type: None Hx Substance Use Treatment: No Review of Systems - Review of Systems Able to Perform ROS?: Yes Constitutional: Yes: Weakness. No: Chills, Fever, Unexplained wgt Loss HEENTM: Yes: Nose Congestion. No: Throat Pain, Throat Swelling Respiratory: Yes: Cough, Shortness of Breath, Productive cough Cardiac (ROS): Yes: Lightheadedness. No: Chest Pain, Edema, Irregular Heart Rate, Palpitations, Syncope ABD/GI: No: Constipated, Diarrhea, Nausea, Vomiting : No: Burning, Dysuria Musculoskeletal: No: Back Pain, Neck Pain Integumentary: No: Bruising, Rash Neurological: No: Headache, Numbness, Tingling, Weakness Endocrine: No: Unexplained Weight Gain, Unexplained Weight Loss *Physical Exam - Vital Signs Last Vital Signs Temp Pulse Resp BP Pulse Ox 99 F 96 H 17 100/52 90 L 05/09/17 14:12 05/09/17 14:12 05/09/17 14:12 05/09/17 14:12 05/09/17 14:12 - Physical Exam General Appearance: Yes: Nourished, Other (ill-appearing elderly male who speaks limited Salvadorean and is accompanied at bedside by his daughter, answers some questions but defers to his daughter to answer many as well, alert). No: Apparent Distress HEENT: positive: EOMI, Normal Voice, Hearing Grossly Normal. negative: Scleral Icterus (R), Scleral Icterus (L), Nasal Congestion Neck: positive: Trachea midline, Supple. negative: Tender, Rigid Respiratory/Chest: positive: Respiratory Distress (tachypnea), Labored Respiration, Rapid RR, Crackles (profound), Rhonchi. negative: Chest Tender, Stridor, Wheezing Cardiovascular: positive: Regular Rhythm, Tachycardia (mild). negative: Edema, JVD, Murmur Gastrointestinal/Abdominal: positive: Normal Bowel Sounds, Soft, Protuberent. negative: Tender, Organomegaly, Pulsatile Mass, Guarding Musculoskeletal: positive: Normal Inspection. negative: Decreased Range of Motion, Vertebral Tenderness Extremity: positive: Normal Capillary Refill, Normal Inspection, Normal Range of Motion. negative: Tender, Cyanosis Integumentary: positive: Normal Color, Dry, Warm. negative: Erythema, Rash, Bruising Neurologic: positive: community relations assistant II-XII NML intact, Fully Oriented, Alert, Normal Mood/ Affect, Normal Response, Motor Strength 5/5, Finger to Nose (normal). negative : EOM Palsy, Facial Droop, Sensory Deficit, Confused, Disoriented ED Treatment Course - LABORATORY CBC & Chemistry Diagram: 05/09/17 15:30 05/09/17 16:47 Medical Decision Making - Medical Decision Making DDX IBNLT PNA/bronchitis, CHF exacerbation, pulmonary edema, possibly also with UTI, possibly complicated by ACS, etc. Ordered is sepsis order set with additional ceftriaxone and azithromycin empiric coverage, 1 GM Ofirmev. Will hold fluids at this time d/t possibility of volume overload given h/o CHF. 05/09/17 18:18 CXR shows vascular congestion, no obvious focal consolidation. CBCD unremarkable. After CMP hemolyzing, repeat draw results. Patient's troponin is 0.76, CK is 673. Troponin will be repeated in 3 hours. BUN and Cr are 33 and 2.5, respectively, highest they have been for this patient at [facility]. [facility]MD has been sent to [facility] for admission. *DC/Admit/Observation/Transfer Diagnosis at time of Disposition: Acute on chronic renal insufficiency, Demand ischemia Pneumonia Qualifiers: Pneumonia type: due to unspecified organism Laterality: unspecified laterality Lung location: unspecified part of lung Qualified Code(s): J18.9 - Pneumonia, unspecified organism - Discharge Dispostion Condition at time of disposition: Guarded Admit: Yes - Referrals - Patient Instructions - Post Discharge Activity
[2017-05-09] MEDS ORDERED: ACETAMINOPHEN 1000 MG/100 ML VIAL (NON FORMULARY) IVPB ONE (15:16)
[2017-05-09] MEDS ORDERED: AZITHROMYCIN IVPB 500 MG in DEXTROSE 5%-WATER - 250 ML IVPB ONE (15:23)
[2017-05-09] MEDS ORDERED: CEFTRIAXONE 1 GM in DEXTROSE 5%-WATER - 50 ML IVPB ONE (15:23)
[2017-05-09 15:39] LABS: VENOUS PC02 32.2 mmHg (38-52); VENOUS PH 7.46 (7.32-7.42); VENOUS PO2 54.3 mmHg (28-48)
[2017-05-09] MEDS ORDERED: CEFTRIAXONE 1 GM/50 ML BAG ONE ×2 (15:39)
[2017-05-09] MEDS ORDERED: ACETAMINOPHEN INJECTION 100 ML IVPB ONE (15:39)
[2017-05-09] MEDS ORDERED: AZITHROMYCIN IVPB 250 ML IVPB ONE (15:39)
[2017-05-09 15:40] LABS: BASO % 0.2 % (0-2.0); EOS % 0.2 % (0-4.5); HEMATOCRIT 44.3 % (35.4-49); HEMOGLOBIN 14.9 GM/dL (11.7-16.9); LYMPH % 13.5 % (8-40); MCH 31.1 pg (25.7-33.7); MCHC 33.5 g/dl (32.0-35.9); MEAN CELL VOLUME 92.8 fl (80-96); MEAN PLT VOLUME 10.7 fl (7.5-11.1); MONO % 14.1 % (3.8-10.2); PLATELET COUNT 122 K/MM3 (134-434); RBC 4.78 M/mm3 (4.00-5.60); WHITE BLOOD COUNT 7.4 K/mm3 (4.0-10.0)
--- NOTE | 2017-05-09 16:33 | PDOC ---
Attending Attestation - HPI HPI: 05/09/17 17:16 The patient is a 82 year old male, with a significant past medical history of HTN, IDDM, GERD, and Arrhythmia with pacemaker, Prior PNA (1 year ago) who presents to the emergency department with cough and SOB for the past 4 days. Patient reports productive cough (yellow) with associated SOB and generalized weakness. Patient has been increasingly weak that he fell twice within the past week. Patient reports L hill pain however denies any head trauma or any further injuries. Patient presents to the ED for further evaluation. Allergies: NKA Past surgical history: PPD Social history: None PCP: Dr. Merino - Physicial Exam PE: 05/09/17 17:16 GENERAL: Awake, alert, and fully oriented, in no acute distress HEAD: No signs of trauma EYES: PERRLA, EOMI, sclera anicteric, conjunctiva clear ENT: Auricles normal inspection, hearing grossly normal, nares patent, oropharynx clear without exudates. Moist mucosa NECK: Normal ROM, supple, no lymphadenopathy, JVD, or masses LUNGS: Breath sounds equal, clear to auscultation bilaterally. No wheezes, and no crackles. +Rhonchorous breath sounds bilaterally. HEART: Regular rate and rhythm, normal S1 and S2, no murmurs, rubs or gallops. + L sided pacemaker. ABDOMEN: Soft, nontender, normoactive bowel sounds. No guarding, no rebound. No masses EXTREMITIES: Normal range of motion. No clubbing or cyanosis. No cords, erythema , or tenderness. +Trace pitting edema. NEUROLOGICAL: Cranial nerves II through XII grossly intact. Normal speech, normal gait SKIN: Warm, Dry, normal turgor, no rashes or lesions noted. - Medical Decision Making 05/09/17 17:16 Documentation prepared by Birgit Gannon, acting as expert medical writer for Jose Rausch MD <Birgit Gannon - Last Filed: 05/09/17 17:16> - Resident Resident Name: Sommer Larson - ED Attending Attestation I have performed the following: I have examined & evaluated the patient, The case was reviewed & discussed with the resident, I agree w/resident's findings & plan, Exceptions are as noted - Medical Decision Making 05/09/17 16:33 A portion of this note was written by my scribe, under my supervision. Vital Signs Temp Pulse Resp BP Pulse Ox 99 F 96 H 17 100/52 90 L 05/09/17 14:12 05/09/17 14:12 05/09/17 14:12 05/09/17 14:12 05/09/17 14:12 82-year-old male with history of pacemaker, CHF, diabetes, stroke, prior pneumonia presents with productive cough and shortness of breath for last several days. Denies sick contacts or recent travels. Endorsed fevers today. Patient was concerned as this feels like his prior pneumonia. Patient's O2 saturation is 90% and patient is with rhonchorous breath sounds. He clinically has pneumonia. We'll obtain blood cultures and treat with IV antibiotics admit the patient to the hospital. 05/09/17 18:14 CBC, BMP 05/09/17 15:30 05/09/17 16:47 CMP Sodium 135 mmol/L (136-145) L 05/09/17 16:47 Potassium 4.5 mmol/L (3.5-5.1) 05/09/17 16:47 Chloride 102 mmol/L (98-107) 05/09/17 16:47 Carbon Dioxide 24 mmol/L (21-32) 05/09/17 16:47 Anion Gap 9 (8-16) 05/09/17 16:47 BUN 33 mg/dL (7-18) H D 05/09/17 16:47 Creatinine 2.5 mg/dL (0.7-1.3) H D 05/09/17 16:47 Creat Clearance w eGFR 24.91 (>60) 05/09/17 16:47 Random Glucose 192 mg/dL (74-106) H D 05/09/17 16:47 Lactic Acid 1.7 mmol/L (0.4-2.0) 05/09/17 15:30 Calcium 7.8 mg/dL (8.5-10.1) L 05/09/17 16:47 Total Bilirubin 1.0 mg/dL (0.2-1.0) D 05/09/17 16:47 AST 43 U/L (15-37) H D 05/09/17 16:47 ALT 27 U/L (12-78) 05/09/17 16:47 Alkaline Phosphatase 55 U/L (45-117) D 05/09/17 16:47 Creatine Kinase 673 IU/L (39-308) H 05/09/17 16:47 Troponin I 0.76 ng/ml (0.00-0.05) H* D 05/09/17 16:47 Total Protein 6.0 g/dl (6.4-8.2) L 05/09/17 16:47 Albumin 2.4 g/dl (3.4-5.0) L 05/09/17 16:47 Trop 0.76, likely demand ischemia. Will trend troponins. Though patient does not have xray evidence of infiltrate, will admit patient for clinical pneumonia. <Jose Rausch - Last Filed: 05/09/17 18:15> Heart Score/ECG Review #1 ECG reviewed & interpreted by me at: 15:00 05/09/17 16:34 Paced 94 <Jose Rausch - Last Filed: 05/09/17 18:15>
[2017-05-09 17:05] LABS: INR 1.27 (0.82-1.09); PROTHROMBIN TIME (PATIENT) 14.4 SEC (9.98-11.88)
[2017-05-09 17:08] LABS: ACTIVATED PTT 34.6 SECONDS (26.9-34.4)
[2017-05-09 17:46] LABS: ALBUMIN 2.4 g/dl (3.4-5.0); ANION GAP 9 (8-16); BLOOD UREA NITROGEN 33 mg/dL (7-18); CALCIUM 7.8 mg/dL (8.5-10.1); CHLORIDE 102 mmol/L (98-107); CO2 24 mmol/L (21-32); CREATININE 2.5 mg/dL (0.7-1.3); GLUCOSE,RANDOM 192 mg/dL (74-106); SGPT/ALT 27 U/L (12-78); SODIUM 135 mmol/L (136-145)
[2017-05-09 18:02] LABS: ALK PHOS 55 U/L (45-117)
[2017-05-09 18:06] LABS: POTASSIUM 4.5 mmol/L (3.5-5.1); SGOT/AST 43 U/L (15-37)
[2017-05-09] MEDS ORDERED: ASPIRIN 81 MG CHEWABLE TABLETS PO ONE (18:23)
--- NOTE | 2017-05-09 20:41 | HP ---
Admitting History and Physical - Primary Care Physician PCP: Loly Merino - Admission Chief Complaint: SOB, Cough, Weakness History of Present Illness: 82 y/o man with a PMHx of: HTN, HLD, DM, CVA, TIA, Renal Insufficiency, PPM. Who presents to the ED with difficulty breathing and a productive cough. Patient reports being sick since last Tuesday productive cough- brown phlegm. Patient was recently admitted last January for Generalized Weakness r/o CVA/ TIA. Patient denies fever, chills, CP, AP, N/V/D, constipation. Patient denies recent exposure to sick contacts. History Source: Patient, Medical Record Limitations to Obtaining History: Clinical Condition - Past Medical History Cardiovascular: Yes: HTN, Other (pacemaker) Gastrointestinal: Yes: GERD Renal/: Yes: Renal Inusuff Endocrine: Yes: Diabetes Mellitus - Past Surgical History Past Surgical History: Yes: Permanent Pacemaker - Smoking History Smoking history: Never smoked Have you smoked in the past 12 months: No Aproximately how many cigarettes per day: 0 - Alcohol/Substance Use Hx Alcohol Use: No History of Substance Use: reports: None - Social History Usual Living Arrangement: Yes: With Spouse History of Recent Travel: No Home Medications - Allergies Allergies/Adverse Reactions: Allergies Allergy/AdvReac Type Severity Reaction Status Date / Time No Known Allergies Allergy Verified 05/09/17 14:12 - Home Medications Home Medications: Ambulatory Orders Omeprazole Magnesium [Prilosec (OTC)] 20 mg PO DAILY 12/15/11 Insulin (Novolog 70/30) [Novolog Mix 70/30 Flexpen -] 30 units SQ BIDI #0 pen Ranolazine [Ranexa] 1,000 mg PO BID #0 tab.er.12h 02/23/12 Aspirin Coated [Ecotrin -] 325 mg PO DAILY #30 tab 02/02/17 Insulin (Novolog 70/30) [Novolog Mix 70/30 Vial -] 15 units SQ BID@0700,1630 # 10 vial 02/02/17 Metoprolol Succinate [Toprol XL -] 50 mg PO BID #60 tab 02/02/17 Atorvastatin Ca [Lipitor] 40 mg PO HS #30 tablet 02/03/17 Family Disease History - Family Disease History Family History: Unable to Obtain Review of Systems - Review of Systems Constitutional: reports: Weakness Eyes: reports: No Symptoms HENT: reports: No Symptoms Neck: reports: No Symptoms Cardiovascular: reports: Shortness of Breath Respiratory: reports: Cough, SOB Gastrointestinal: reports: No Symptoms Genitourinary: reports: No Symptoms Breasts: reports: No Symptoms Reported Musculoskeletal: reports: No Symptoms Integumentary: reports: No Symptoms Neurological: reports: No Symptoms Endocrine: reports: No Symptoms Hematology/Lymphatic: reports: No Symptoms Psychiatric: reports: No Symptoms Physical Examination Vital Signs: Vital Signs Temperature 99 F 05/09/17 14:12 Pulse Rate 96 H 05/09/17 14:12 Respiratory Rate 17 05/09/17 14:12 Blood Pressure 100/52 05/09/17 14:12 O2 Sat by Pulse Oximetry (%) 90 L 05/09/17 14:12 Constitutional: Yes: No Distress, Calm Eyes: Yes: WNL, Conjunctiva Clear, EOM Intact, PERRL HENT: Yes: WNL, Atraumatic, Normocephalic Neck: Yes: WNL, Supple, Trachea Midline Cardiovascular: Yes: Pulse Irregular, S1, S2 Respiratory: Yes: On Nasal O2, Rhonchi, Wheezes Gastrointestinal: Yes: WNL, Normal Bowel Sounds, Soft ...Rectal Exam: Yes: Deferred Renal/: Yes: WNL Breast(s): Yes: WNL Musculoskeletal: Yes: WNL Extremities: Yes: WNL Edema: No Peripheral Pulses WNL: Yes Integumentary: Yes: WNL Neurological: Yes: WNL, Alert, Oriented, Cran Nerves II-XII Intact ...Motor Strength: WNL Psychiatric: Yes: WNL, Alert, Oriented Labs: CBC, BMP 05/09/17 15:30 05/09/17 16:47 Laboratory Results - last 24 hr 05/09/17 05/09/17 05/09/17 15:30 15:30 15:30 WBC 7.4 D RBC 4.78 Hgb 14.9 Hct 44.3 MCV 92.8 MCH 31.1 MCHC 33.5 RDW 15.0 Plt Count 122 L MPV 10.7 Neutrophils % 72.0 D Lymphocytes % 13.5 D Monocytes % 14.1 H Eosinophils % 0.2 D Basophils % 0.2 PT with INR 14.40 H INR 1.27 H PTT (Actin FS) 34.6 H VBG pH 7.46 H POC VBG pCO2 32.2 L POC VBG pO2 54.3 H Mixed VBG HCO3 22.5 Sodium Potassium Chloride Carbon Dioxide Anion Gap BUN Creatinine Creat Clearance w eGFR Random Glucose Lactic Acid Calcium Total Bilirubin AST ALT Alkaline Phosphatase Creatine Kinase Creatine Kinase Index CK-MB (CK-2) Troponin I Total Protein Albumin Blood Type Antibody Screen 05/09/17 05/09/17 05/09/17 15:30 15:30 15:30 WBC RBC Hgb Hct MCV MCH MCHC RDW Plt Count MPV Neutrophils % Lymphocytes % Monocytes % Eosinophils % Basophils % PT with INR INR PTT (Actin FS) VBG pH POC VBG pCO2 POC VBG pO2 Mixed VBG HCO3 Sodium Cancelled Potassium Cancelled Chloride Cancelled Carbon Dioxide Cancelled Anion Gap Cancelled BUN Cancelled Creatinine Cancelled Creat Clearance w eGFR Cancelled Random Glucose Cancelled Lactic Acid 1.7 Calcium Cancelled Total Bilirubin Cancelled AST Cancelled ALT Cancelled Alkaline Phosphatase Cancelled Creatine Kinase Cancelled Creatine Kinase Index CK-MB (CK-2) Troponin I Cancelled Total Protein Cancelled Albumin Cancelled Blood Type Cancelled Antibody Screen Cancelled 05/09/17 16:47 WBC RBC Hgb Hct MCV MCH MCHC RDW Plt Count MPV Neutrophils % Lymphocytes % Monocytes % Eosinophils % Basophils % PT with INR INR PTT (Actin FS) VBG pH POC VBG pCO2 POC VBG pO2 Mixed VBG HCO3 Sodium 135 L Potassium 4.5 Chloride 102 Carbon Dioxide 24 Anion Gap 9 BUN 33 H D Creatinine 2.5 H D Creat Clearance w eGFR 24.91 Random Glucose 192 H D Lactic Acid Calcium 7.8 L Total Bilirubin 1.0 D AST 43 H D ALT 27 Alkaline Phosphatase 55 D Creatine Kinase 673 H Creatine Kinase Index 0.4 CK-MB (CK-2) 3.034 Troponin I 0.76 H* D Total Protein 6.0 L Albumin 2.4 L Blood Type Antibody Screen Imaging - Results Chest X-ray: Image Reviewed EKG: Image Reviewed (Atrial Ventricular Paced 94bpm, with prolonged AV Conductor ) Problem List - Problems (1) Pneumonia Assessment/Plan: - CURB65 Score 2 - Chest Xray- Infiltrate - No leukocytosis, no lactic acidemia, afebrile - Continue Ceftriaxone, Azithromycin for CAP - Blood cultures-pending - Rapid Influenza-pending - Sputum Culture - Urine legionella - Appreciate ID Consult - Appreciate Pulm Consult - Repeat CBC in am - Monitor vitals - O2 - Duo nebs prn Code(s): J18.9 - PNEUMONIA, UNSPECIFIED ORGANISM Qualifiers: Pneumonia type: due to unspecified organism Laterality: unspecified laterality Lung location: unspecified part of lung Qualified Code(s): J18.9 - Pneumonia, unspecified organism (2) Acute on chronic renal insufficiency Assessment/Plan: - Cr 2.5 baseline (1.3-1.7), likely secondary to dehydration - Gentle IVF - Repeat BMP in am Code(s): N28.9 - DISORDER OF KIDNEY AND URETER, UNSPECIFIED; N18.9 - CHRONIC KIDNEY DISEASE, UNSPECIFIED (3) Demand ischemia Assessment/Plan: -Likely secondary to RI - Patient denies chest pain, palpitations or SOB - Serial Enzymes - Continue cardiac monitoring - Appreciate Cardiology consult Code(s): I24.8 - OTHER FORMS OF ACUTE ISCHEMIC HEART DISEASE (4) HTN (hypertension) Assessment/Plan: - Will hold Metoprolol for now secondary to hypotension - Monitor BP Code(s): I10 - ESSENTIAL (PRIMARY) HYPERTENSION (5) IDDM (insulin dependent diabetes mellitus) Assessment/Plan: - BGMs - ISS Code(s): E11.9 - TYPE 2 DIABETES MELLITUS WITHOUT COMPLICATIONS; Z79.4 - WASTE MACHINE OFFBEARER (CURRENT) USE OF INSULIN (6) CVA (cerebral vascular accident) Assessment/Plan: - Continue Asa - Fall precautions Code(s): I63.9 - CEREBRAL INFARCTION, UNSPECIFIED Qualifiers: CVA mechanism: unspecified Qualified Code(s): I63.9 - Cerebral infarction, unspecified (7) TIA (transient ischemic attack) Assessment/Plan: - See above Code(s): G45.9 - TRANSIENT CEREBRAL ISCHEMIC ATTACK, UNSPECIFIED (8) Pacemaker Assessment/Plan: - EKG- paced rhythm Code(s): Z95.0 - PRESENCE OF CARDIAC PACEMAKER (9) DVT prophylaxis Assessment/Plan: - SCDs - Heparin SQ Code(s): [id number] - Assessment/Plan This is a 82 y/o man with a PMHx of: IDDM, HTN, HLD, CVA, TIA, GERD, Renal Insufficiency. Admitted to Telemetry for Pneumonia, Acute on Chronic Renal Failure, Demand Ischemia Plan: FEN - NS bolus 100cc x1 - Replete lytes prn - Low Na, Diabetic Diet Code Status: Full Code Dispo: Requires Inpatient care Visit type - Emergency Visit Emergency Visit: Yes ED Registration Date: 05/09/17 Care time: The patient presented to the Emergency Department on the above date and was hospitalized for further evaluation of their emergent condition. - New Patient This patient is new to me today: Yes Date on this admission: 05/09/17 - Critical Care Critical Care patient: No
[2017-05-09] MEDS ORDERED: ASPIRIN 81 MG CHEWABLE TABLETS ONE (21:13)
[2017-05-09] MEDS ORDERED: ATORVASTATIN CA 40 MG TABLET (FP) ONE (21:14)
[2017-05-09] MEDS ORDERED: ALBUTEROL SO4 2.5/IPRATROPIUM 0.5 INH SOL 3 ML VIAL.NEB. NEB ONE (21:14)
[2017-05-09] MEDS ORDERED: HEPARIN NA (PORCINE) 5,000 UNITS/ML 1ML VIAL ONE (21:14)
[2017-05-09] MEDS: ALBUTEROL SO4 2.5/IPRATROPIUM 0.5 INH SOL 3 ML VIAL.NEB. NEB PRN (21:55)
[2017-05-09] MEDS: HEPARIN NA (PORCINE) 5,000 UNITS/ML 1ML VIAL SQ SCH (21:55)
[2017-05-09] MEDS: ATORVASTATIN CA 40 MG TABLET (FP) PO SCH (21:55)
[2017-05-09] MEDS ORDERED: RANOLAZINE E.R. 500 MG TABLET (FP) PO SCH (22:00)
[2017-05-09] MEDS ORDERED: METOPROLOL SUCCINATE 50 MG TAB.SR.24H (FP) PO SCH (22:00)
[2017-05-09 22:07] LABS: URINE APPEARANCE CLOUDY; URINE BILIRUBIN NEGATIVE (NEGATIVE); URINE BLOOD 1+ (NEGATIVE); URINE COLOR AMBER; URINE GLUCOSE (UA) 2+ (NEGATIVE); URINE KETONE NEGATIVE (NEGATIVE); URINE LEUK ESTERASE NEGATIVE (NEGATIVE); URINE NITRITE NEGATIVE (NEGATIVE)
[2017-05-09 22:43] LABS: URINE PROTEIN 3+ (NEGATIVE)
[2017-05-09] MEDS: RANOLAZINE E.R. 1,000 MG TABLET (FP) PO SCH (22:43)
[2017-05-09 22:52] LABS: EPI CELLS RARE /HPF (FEW); GRANULAR CASTS 1 /lpf; URINE BACTERIA RARE /hpf (NONE SEEN); URINE HYALINE CAST 2 /lpf; URINE MUCUS RARE
[2017-05-10 07:41] LABS: BASO % 0.2 % (0-2.0); EOS % 0.6 % (0-4.5); HEMATOCRIT 44.7 % (35.4-49); HEMOGLOBIN 14.6 GM/dL (11.7-16.9); LYMPH % 13.8 % (8-40); MCH 30.6 pg (25.7-33.7); MCHC 32.6 g/dl (32.0-35.9); MEAN CELL VOLUME 93.8 fl (80-96); MEAN PLT VOLUME 10.5 fl (7.5-11.1); MONO % 8.9 % (3.8-10.2); NEUT % 76.5 % (42.8-82.8); PLATELET COUNT 101 K/MM3 (134-434); RBC 4.77 M/mm3 (4.00-5.60); RDW 15.3 % (11.9-15.9); WHITE BLOOD COUNT 7.2 K/mm3 (4.0-10.0)
[2017-05-10 07:49] LABS: ANION GAP 9 (8-16); BLOOD UREA NITROGEN 33 mg/dL (7-18); CALCIUM 8.4 mg/dL (8.5-10.1); CHLORIDE 104 mmol/L (98-107); CHOLESTEROL 98 mg/dL (50-200); CO2 26 mmol/L (21-32); CREATININE 2.1 mg/dL (0.7-1.3); GLUCOSE,RANDOM 194 mg/dL (74-106); MAGNESIUM 2.1 mg/dL (1.8-2.4); POTASSIUM 4.6 mmol/L (3.5-5.1); SODIUM 139 mmol/L (136-145); TRIGLYCERIDES 140 mg/dL (35-160)
[2017-05-10 07:51] LABS: HDL CHOLESTEROL 22 mg/dL (40-60); LDL CHOLESTEROL (ONLY SJRH) 53 mg/dL (5-100); PHOSPHOROUS 2.6 mg/dL (2.5-4.9)
--- NOTE | 2017-05-10 09:33 | PN ---
Progress Note (short form) - Note Progress Note: pt seen/ examined in er chart reviewed feels little better cough + denies cp. Vital Signs Temp 98.9 F 05/10/17 07:00 Pulse 73 05/10/17 07:00 Resp 18 05/10/17 07:00 BP 133/59 05/10/17 07:00 Pulse Ox 95 05/10/17 07:00 Intake & Output 05/09/17 05/09/17 05/10/17 11:59 23:59 11:59 Weight 188 lb Other: Height 5 ft 9 in Body Mass Index (BMI) 27.7 Weight Measurement Method Est/Stated by Patient Active Medications Acetaminophen (Tylenol -) 650 mg PO Q6H PRN PRN Reason: FEVER OR PAIN Albuterol/Ipratropium (Duoneb -) 1 amp NEB Q6H PRN PRN Reason: SHORTNESS OF BREATH Last Admin: 05/09/17 21:55 Dose: 1 amp Aspirin (Asa -) 81 mg PO DAILY [facility] Atorvastatin Calcium (Lipitor -) 40 mg PO HS [facility] Last Admin: 05/09/17 21:55 Dose: 40 mg Heparin Sodium (Porcine) (Heparin -) 5,000 unit SQ BID [facility] Last Admin: 05/09/17 21:55 Dose: 5,000 unit Azithromycin 500 mg/ Dextrose 250 mls @ 250 mls/hr IVPB DAILY [facility] CEFTRIAXONE 1 G/50 ML PREMIX (Ceftriaxone 1 Gm-D5w Bag) 50 mls @ 100 mls/hr IVPB DAILY [facility] Insulin Aspart (Novolog Mix 70/30 Vial) 15 units SQ BIDAC [facility] Metoprolol Succinate (Toprol Xl -) 25 mg PO DAILY [facility] Pantoprazole Sodium (Protonix -) 20 mg PO DAILY [facility] Ranolazine (Ranexa -) 1,000 mg PO BID [facility] Last Admin: 05/09/17 22:43 Dose: 1,000 mg CBC, BMP 05/10/17 07:09 05/10/17 07:04 cxr- mild congestion Physical Exam awake/ comfortable lungs- scattered rhonchi throat- mild congestion. cvs- s1, s2 rrr abd- soft ext- no edema neuro- aox3 a/p IN summary 82 y/o man with a PMHx of: HTN, HLD, DM, CVA, TIA, Renal Insufficiency, PPM. Who presents to the ED with difficulty breathing and a productive cough. Patient reports being sick since last Tuesday productive cough- brown phlegm. Pneumonia Acute on chronic renal insufficiency HTN IDDM Cad s/p ppm continue abx continue fluids f/u lytes nebulizer treatment monitor bgm meds reviewed restart on insulin will follow Problem List - Problems (1) Acute on chronic renal insufficiency Code(s): N28.9 - DISORDER OF KIDNEY AND URETER, UNSPECIFIED; N18.9 - CHRONIC KIDNEY DISEASE, UNSPECIFIED (2) Pneumonia Code(s): J18.9 - PNEUMONIA, UNSPECIFIED ORGANISM Qualifiers: Pneumonia type: due to unspecified organism Laterality: unspecified laterality Lung location: unspecified part of lung Qualified Code(s): J18.9 - Pneumonia, unspecified organism (3) IDDM (insulin dependent diabetes mellitus) Code(s): E11.9 - TYPE 2 DIABETES MELLITUS WITHOUT COMPLICATIONS; Z79.4 - CROP SUPERVISOR (CURRENT) USE OF INSULIN (4) Pacemaker Code(s): Z95.0 - PRESENCE OF CARDIAC PACEMAKER
[2017-05-10] MEDS: HEPARIN NA (PORCINE) 5,000 UNITS/ML 1ML VIAL SQ SCH ×2 (10:00→21:22)
[2017-05-10] MEDS: PANTOPRAZOLE 20 MG TABLET (FP) PO SCH (10:00)
[2017-05-10] MEDS: METOPROLOL SUCCINATE 25 MG TAB.SR.24H (FP) PO SCH (10:00)
[2017-05-10] MEDS: RANOLAZINE E.R. 1,000 MG TABLET (FP) PO SCH ×2 (10:00→21:22)
[2017-05-10] MEDS: ASPIRIN 81 MG CHEWABLE TABLETS PO SCH (10:00)
[2017-05-10] MEDS: CEFTRIAXONE 1 G/50 ML PREMIX 50 ML IVPB SCH (10:00)
--- NOTE | 2017-05-10 10:05 | PN ---
Progress Note (short form) - Note Progress Note: ID Consult dictated Community acquired v. atypical pneumonia IDDM Hx CHF Azotemia Await cultures Empiric zithromax/ ceftriaxone
--- NOTE | 2017-05-10 10:34 | CON.CARD ---
Cardiology Consult (text) - Consultation Consultation Note: CC: sob 82 yo with h/o HCM s/p ICD for primary prevention, CHB s/p st mariely, dual lead ppm, PAD (s/p SUPPLY CHAIN CONSULTANT of left LE), htn, HL, dchf on lasix, IDDM, GERD, recent admit for dizziness/weakness/gait disturbance/? tia who p/w sob/cough concerning for pna, hospital course c/b elevated troponins and fadumo. Patient was recently admitted last January for Generalized Weakness r/o CVA/ TIA. Did not follow up with global ceo. progressive productive cough (brown sputum) and SOB for the past 4 days which feels similar to his PNA last year. He additionally feels lightheaded and generally weak today. He had an incident this morning where he was attempting to stand up from bed and his legs became weak, and he slumped to the floor without hitting his head or losing consciousness. He was unable to pick himself up d/t lack of strength and his needed to call a family member to help stand him up, but he was not on the ground for an extended time. Endorses weakness and poor po intake for the past week. + throat pain. subjective fevers per report. Course notable for elevated troponins and fadumo. s/p IV abx in ER. Poor historian He denies headache, blurry vision, congestion, rashes, bleeding, abdominal pain , n/v/d. No chest pain, LOC, palps, orthopnea, pnd, le edema. - Past Medical History Cardio/Vascular: Yes: HTN, Other (pacemaker) Gastrointestinal: Yes: GERD Endocrine: Yes: Diabetes Mellitus - Past Surgical History Past Surgical History: Yes: Permanent Pacemaker - Alcohol/Substance Use Hx Alcohol Use: No - Smoking History Smoking history: Never smoked family hx: no premature cad. ros: per phi Ambulatory Orders Omeprazole Magnesium [Prilosec (OTC)] 20 mg PO DAILY 12/15/11 Insulin (Novolog 70/30) [Novolog Mix 70/30 Flexpen -] 30 units SQ BIDI #0 pen Ranolazine [Ranexa] 1,000 mg PO BID #0 tab.er.12h 02/23/12 Aspirin Coated [Ecotrin -] 325 mg PO DAILY #30 tab 10/04/17 Insulin (Novolog 70/30) [Novolog Mix 70/30 Vial -] 15 units SQ BID@0700,1630 # 10 vial 02/02/17 Metoprolol Succinate [Toprol XL -] 50 mg PO BID #60 tab 02/02/17 Atorvastatin Ca [Lipitor] 40 mg PO HS #30 tablet 02/03/17 Current Medications Acetaminophen (Tylenol -) 650 mg PO Q6H PRN PRN Reason: FEVER OR PAIN Albuterol/Ipratropium (Duoneb -) 1 amp NEB Q6H PRN PRN Reason: SHORTNESS OF BREATH Last Admin: 05/09/17 21:55 Dose: 1 amp Aspirin (Asa -) 81 mg PO DAILY [facility] Last Admin: 05/10/17 10:00 Dose: 81 mg Atorvastatin Calcium (Lipitor -) 40 mg PO HS [facility] Last Admin: 05/09/17 21:55 Dose: 40 mg Heparin Sodium (Porcine) (Heparin -) 5,000 unit SQ BID [facility] Last Admin: 05/10/17 10:00 Dose: 5,000 unit Azithromycin 500 mg/ Dextrose 250 mls @ 250 mls/hr IVPB DAILY [facility] CEFTRIAXONE 1 G/50 ML PREMIX (Ceftriaxone 1 Gm-D5w Bag) 50 mls @ 100 mls/hr IVPB DAILY [facility] Last Admin: 05/10/17 10:00 Dose: 100 mls/hr Insulin Aspart ([facility] Mix 70/30 [facility]) [facility] Metoprolol Succinate (Toprol Xl -) 25 mg PO DAILY [facility] Last Admin: 05/10/17 10:00 Dose: 25 mg Pantoprazole Sodium (Protonix -) 20 mg PO DAILY [facility] Last Admin: 05/10/17 10:00 Dose: 20 mg Ranolazine (Ranexa -) 1,000 mg PO BID [facility] Last Admin: 05/10/17 10:00 Dose: 1,000 mg Vital Signs - 24 hr 05/09/17 05/09/17 05/09/17 14:05 14:12 19:25 Temperature 102 F H 99 F 98.1 F Pulse Rate 96 H Pulse Rate [ 80 75 Apical] Respiratory 27 H 17 24 Rate Blood Pressure 100/52 Blood Pressure 108/81 104/64 [Right Arm] O2 Sat by Pulse 95 90 L 95 Oximetry (%) 05/09/17 05/10/17 05/10/17 23:14 07:00 10:00 Temperature 97.7 F 98.9 F 97.4 F L Pulse Rate 96 H Pulse Rate [ 80 73 Apical] Respiratory 20 18 20 Rate Blood Pressure 114/58 Blood Pressure 101/46 133/59 [Right Arm] O2 Sat by Pulse 94 L 95 Oximetry (%) Intake & Output 05/08/17 05/09/17 05/10/17 05/11/17 07:59 07:59 07:59 07:59 Weight 188 lb nad, calm jvd flat, neck supple PPM site nt, non-erythematous ctab, nl effort rrr nl s1, s2 2/6 murmur at apex. + bs soft nt nd ext without e/c/c diminished dp/pt no carotid bruits. no jaundice diaphoresis alert and oriented CBC, BMP 05/10/17 07:09 05/10/17 07:04 Laboratory Tests 01/31/17 05/09/17 06:20 15:30 INR 1.27 H Sodium Creatinine 1.5 H Hemoglobin A1c % Magnesium Creatine Kinase Creatine Kinase Index CK-MB (CK-2) Troponin I Albumin Triglycerides Cholesterol Total LDL Cholesterol HDL Cholesterol TSH Urine Protein Urine Glucose (UA) 05/09/17 05/09/17 05/09/17 16:47 21:22 21:22 INR Sodium 135 L Creatinine 2.5 H D Hemoglobin A1c % Magnesium Creatine Kinase 673 H Creatine Kinase Index 0.4 0.6 CK-MB (CK-2) 3.034 Troponin I 0.76 H* D 0.63 H* Albumin 2.4 L Triglycerides Cholesterol Total LDL Cholesterol HDL Cholesterol TSH Urine Protein 3+ H Urine Glucose (UA) 2+ H 05/10/17 05/10/17 05/10/17 07:04 07:04 07:04 INR Sodium Creatinine Hemoglobin A1c % 9.0 H D Magnesium 2.1 Creatine Kinase Creatine Kinase Index CK-MB (CK-2) Troponin I 0.78 H* Albumin Triglycerides 140 Cholesterol 98 D Total LDL Cholesterol 53 D HDL Cholesterol 22 L D TSH Urine Protein Urine Glucose (UA) EKG: As-Concrete Pouring Supervisor tele: As-Concrete Pouring Supervisor, Ap-Concrete Pouring Supervisor. echo 01/2017: tds. mild conc lvh. apical wall motion abnormality may reflect ppm activation. rv size/fn not assessed. 1+ vonnie. mild-mod mr. mod tr. rvsp 45. echo 07/2016: sev ESTEFANIA, no lvot obs, no linda, nl lvef, nl rv, mild lae, mod tr head ct: no acute pathology, chronic microvascular changes, chronic lacunar infarct. atherosclerosis of carotids/verts. repeat head ct 01/30: no sig change carotid u/s 01/2017: mild plaque. no stenosis of internal carotid. 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 RV biopsy nonspecific, neg for amyloid, etc. Assessment/Plan 82 yo with h/o HCM s/p ICD for primary prevention, CHB s/p st mariely, dual lead ppm, PAD (s/p SUPPLY CHAIN CONSULTANT of left LE), htn, HL, IDDM, GERD, recent admit for dizziness /weakness/gait disturbance/? tia who p/w sob/cough concerning for pna, hospital course c/b elevated troponins and fadumo. Troponin elevation -Troponin borderline elevated up to 7.8 in setting of elevated ck. flat trend, not c/w ACS--likely secondary to known severe septal hypertrophy from HCM. can defer stress testing for now. -continue asa, statin, metoprolol, ranexa. monitor bp/running on low end. SOB: - mgm't of pna per pmd, id HCM s/p st. mariely ICD for primary prevention (also with chb) - h/o frequent nsvt on tele. --> con't on metoprolol. Previously on 50 mg bid , may need uptitration once bp improves. - ok for gentle IVF to optimize hcm hemodynamics. No hx of lvot obstruction on echo. - recent device check on january admit. HTN -monitor on curretn regimen PAD (s/p SUPPLY CHAIN CONSULTANT of left LE) - con't asa, statin. CKD with FADUMO - Improving with hydration.
[2017-05-10] MEDS: AZITHROMYCIN IVPB 500 MG in DEXTROSE 5%-WATER - 250 ML IVPB SCH (10:45)
--- NOTE | 2017-05-10 12:03 | CONS ---
DATE OF CONSULTATION: DATE OF DICTATION: 05/10/2017 HISTORY OF PRESENT ILLNESS: The patient is an 82-year-old male with a history of insulin-dependent diabetes mellitus and congestive heart failure, permanent pacemaker, evaluated for pneumonia. The patient states he was well until Saturday, May 06, 2017, when he developed an upper respiratory tract syndrome. He reports worsening dyspnea, cough productive of yellowish sputum, generalized weakness and lightheadedness. He had had 2 mechanical falls without head trauma or loss of consciousness. He presented to the emergency room where he was evaluated and admitted for presumed community-acquired versus atypical pneumonia. The patient has some pleuritic type chest pain with cough and dyspnea. He has cough productive of yellowish sputum. He denies any hemoptysis. The patient lives at home with his significant other. He denies any ill contacts. He is a former smoker; he reports stopping at least 10 years ago. No recent hospitalizations or antibiotic therapy. He did receive influenza vaccine. Patient is originally from [place], has been living in the [facility] since [facility]. He is retired. 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 PAST MEDICAL HISTORY: Positive for insulin-dependent diabetes mellitus, congestive heart failure, hypertension, hyperlipidemia, stroke, gastroesophageal reflux. PAST SURGICAL HISTORY: Status post permanent pacemaker. ALLERGIES: No known allergies. MEDICATIONS: Include Prilosec, NovoLog, Ecotrin, Toprol, Lipitor. SOCIAL HISTORY: As per HPI. SYSTEMS REVIEW: Neurologic: Positive for history of stroke. Cardiac: History of congestive heart failure and permanent pacemaker. Respiratory: As per HPI. Gastrointestinal: Negative for vomiting or diarrhea. Genitourinary: Negative for urinary tract infection. LABORATORY DATA: White count 7.2, hematocrit 44.7, platelet count 101. BUN 33, creatinine 2.1. Lactic acid 1.7. Liver enzymes within normal limits. Urinalysis negative leukocyte esterase, 3 white cells. Influenza swab negative. Chest x-ray showed some increased markings at the right base officially read as negative for acute infiltrate. PHYSICAL EXAMINATION: General: He is awake. He is lethargic on the stretcher. He is in no acute distress. His breathing is nonlabored. Vital signs: Temperature 98.9, blood pressure 133/59, pulse 73 and regular, respirations 18 per minute, maximum temperature 102. HEENT: Sclerae anicteric. Dry mucous membranes. Neck: Supple. No palpable nodes Heart: Heart sounds S1, S2. Lungs: Scattered rhonchi bilaterally. Abdomen: Soft. No tenderness elicited. No mass, rebound, or rigidity. Extremities: 1+ edema. IMPRESSION: 1. Community-acquired versus atypical pneumonia. 2. Insulin-dependent diabetes mellitus. 3. History of congestive heart failure. 4. Status post permanent pacemaker. Await culture results, empiric antibiotic coverage with Zithromax and ceftriaxone. Will follow. Thank you for the kind referral. FABRICE ANDERSON M.D. [id number]
--- NOTE | 2017-05-10 15:13 | EKG ---
Test Reason : Blood Pressure : / mmHG Vent. Rate : 094 BPM Atrial Rate : 094 BPM P-R Int : 228 ms QRS Dur : 160 ms QT Int : 414 ms P-R-T Axes : 000 -88 081 degrees QTc Int : 517 ms Atrial-sensed ventricular-paced rhythm with prolonged AV conduction ABNORMAL ECG WHEN COMPARED WITH ECG OF 28-JAN-2017 09:13, VENT. RATE HAS INCREASED BY 30 BPM Confirmed by Clinton Kirby MD ([id number]) on 05/10/2017 3:13:02 PM Referred By: Confirmed By:Clinton Kirby MD
[2017-05-10 15:45] VITALS: BMI 12.6
[2017-05-10] MEDS ORDERED: INSULIN (NOVOLOG MIX 70/30) 100 UNITS/ML MDV SQ ONE (17:16)
[2017-05-10] MEDS ORDERED: INSULIN (NOVOLOG) ASPART 100 UNITS/ML 10ML VIAL ONE (17:17)
[2017-05-10] MEDS: INSULIN (NOVOLOG MIX 70/30) 100 UNITS/ML MDV SQ SCH (17:22)
[2017-05-10] MEDS: INSULIN SLIDING SCALE (NOVOLOG) 1 VIAL SQ SCH ×2 (17:22→21:29)
[2017-05-10] MEDS: ATORVASTATIN CA 40 MG TABLET (FP) PO SCH (21:22)
[2017-05-10] MEDS ORDERED: INSULIN SLIDING SCALE (NOVOLOG) 1 VIAL SQ SCH (22:00)
[2017-05-11] MEDS: INSULIN SLIDING SCALE (NOVOLOG) 1 VIAL SQ SCH ×4 (06:14→23:03)
[2017-05-11] MEDS: INSULIN (NOVOLOG MIX 70/30) 100 UNITS/ML MDV SQ SCH ×2 (06:14→17:12)
[2017-05-11 07:07] LABS: BASO % 0.2 % (0-2.0); EOS % 1.1 % (0-4.5); HEMATOCRIT 43.1 % (35.4-49); HEMOGLOBIN 13.8 GM/dL (11.7-16.9); LYMPH % 14.2 % (8-40); MCH 30.4 pg (25.7-33.7); MCHC 32.1 g/dl (32.0-35.9); MEAN CELL VOLUME 94.8 fl (80-96); MEAN PLT VOLUME 10.4 fl (7.5-11.1); MONO % 7.5 % (3.8-10.2); PLATELET COUNT 100 K/MM3 (134-434); RBC 4.54 M/mm3 (4.00-5.60); RDW 15.1 % (11.9-15.9); WHITE BLOOD COUNT 7.1 K/mm3 (4.0-10.0)
[2017-05-11 08:07] LABS: ANION GAP 10 (8-16); BLOOD UREA NITROGEN 30 mg/dL (7-18); CALCIUM 8.3 mg/dL (8.5-10.1); CHLORIDE 107 mmol/L (98-107); CO2 24 mmol/L (21-32); CREATININE 1.7 mg/dL (0.7-1.3); GLUCOSE,RANDOM 130 mg/dL (74-106); POTASSIUM 4.3 mmol/L (3.5-5.1); SGOT/AST 40 U/L (15-37); SGPT/ALT 26 U/L (12-78); SODIUM 141 mmol/L (136-145)
[2017-05-11 08:09] LABS: ALK PHOS 61 U/L (45-117); BILIRUBIN,TOTAL 0.8 mg/dL (0.2-1.0); TOT PROT 5.7 g/dl (6.4-8.2)
[2017-05-11] MEDS ORDERED: PT OWN MED DRAWER 7, Y5N ONE (09:13)
[2017-05-11] MEDS: CEFTRIAXONE 1 G/50 ML PREMIX 50 ML IVPB SCH (09:16)
[2017-05-11] MEDS: HEPARIN NA (PORCINE) 5,000 UNITS/ML 1ML VIAL SQ SCH ×2 (09:16→23:02)
[2017-05-11] MEDS: RANOLAZINE E.R. 1,000 MG TABLET (FP) PO SCH ×2 (09:17→23:02)
[2017-05-11] MEDS: ASPIRIN 81 MG CHEWABLE TABLETS PO SCH (09:17)
[2017-05-11] MEDS: PANTOPRAZOLE 20 MG TABLET (FP) PO SCH (09:17)
[2017-05-11] MEDS: METOPROLOL SUCCINATE 25 MG TAB.SR.24H (FP) PO SCH (09:17)
--- NOTE | 2017-05-11 10:00 | PN ---
Progress Note (short form) - Note Progress Note: patient seen and examined in telemetry Looks and feels better denies chest pain Cough improved Afebrile Vital Signs Temp 98.4 F 05/11/17 06:36 Pulse 94 H 05/11/17 06:36 Resp 16 05/11/17 06:36 BP 101/51 05/11/17 06:36 Pulse Ox 96 05/10/17 21:00 Intake & Output 05/10/17 05/10/17 05/11/17 11:59 23:59 11:59 Intake Total 400 Output Total 300 250 Balance 100 -250 Weight 85 lb 4.4 oz Intake: IVPB 300 Oral 100 Output: Urine 300 250 Void 300 250 Other: Voiding Method Urinal Urinal # Unmeasured Voids Void 1 Height 5 ft 9 in Body Mass Index (BMI) 12.6 Weight Measurement Method Estimated by Staff Active Medications Acetaminophen (Tylenol -) 650 mg PO Q6H PRN PRN Reason: FEVER OR PAIN Albuterol/Ipratropium (Duoneb -) 1 amp NEB Q6H PRN PRN Reason: SHORTNESS OF BREATH Last Admin: 05/09/17 21:55 Dose: 1 amp Aspirin (Asa -) 81 mg PO DAILY [facility] Last Admin: 05/11/17 09:17 Dose: 81 mg Atorvastatin Calcium (Lipitor -) 40 mg PO HS [facility] Last Admin: 05/10/17 21:22 Dose: 40 mg Heparin Sodium (Porcine) (Heparin -) 5,000 unit SQ BID [facility] Last Admin: 05/11/17 09:16 Dose: 5,000 unit Azithromycin 500 mg/ Dextrose 250 mls @ 250 mls/hr IVPB DAILY [facility] Last Admin: 05/10/17 10:45 Dose: 250 mls/hr CEFTRIAXONE 1 G/50 ML PREMIX (Ceftriaxone 1 Gm-D5w Bag) 50 mls @ 100 mls/hr IVPB DAILY [facility] Last Admin: 05/11/17 09:16 Dose: 100 mls/hr Insulin Aspart (Novolog Mix 70/30 Vial) 15 units SQ BIDAC [facility] Last Admin: 05/11/17 06:14 Dose: 15 units Insulin Aspart (Novolog Vial Sliding Scale -) 1 vial SQ ACHS [facility] PRN Reason: Protocol Last Admin: 05/11/17 06:14 Dose: Not Given Metoprolol Succinate (Toprol Xl -) 25 mg PO DAILY [facility] Last Admin: 05/11/17 09:17 Dose: 25 mg Pantoprazole Sodium (Protonix -) 20 mg PO DAILY [facility] Last Admin: 05/11/17 09:17 Dose: 20 mg Ranolazine (Ranexa -) 1,000 mg PO BID [facility] Last Admin: 05/11/17 09:17 Dose: 1,000 mg CBC, BMP 05/11/17 06:30 05/11/17 06:30 Physical Exam awake/ comfortable--better lungs- scattered rhonchi throat- mild congestion. cvs- s1, s2 rrr abd- soft ext- no edema neuro- aox3 a/p IN summary 82 y/o man with a PMHx of: HTN, HLD, DM, CVA, TIA, Renal Insufficiency, PPM. Who presents to the ED with difficulty breathing and a productive cough. Patient reports being sick since last Tuesday productive cough- brown phlegm. Pneumonia Acute on chronic renal insufficiency HTN IDDM Cad s/p ppm hypertrophic cardiomyopathy clinically better continue abx continue fluids f/u lytes---better nebulizer treatment monitor bgm we will follow Discussed with nursing staff. Problem List - Problems (1) Acute on chronic renal insufficiency Code(s): N28.9 - DISORDER OF KIDNEY AND URETER, UNSPECIFIED; N18.9 - CHRONIC KIDNEY DISEASE, UNSPECIFIED (2) Pneumonia Code(s): J18.9 - PNEUMONIA, UNSPECIFIED ORGANISM Qualifiers: Pneumonia type: due to unspecified organism Laterality: unspecified laterality Lung location: unspecified part of lung Qualified Code(s): J18.9 - Pneumonia, unspecified organism (3) IDDM (insulin dependent diabetes mellitus) Code(s): E11.9 - TYPE 2 DIABETES MELLITUS WITHOUT COMPLICATIONS; Z79.4 - MANAGER PROJECT (CURRENT) USE OF INSULIN (4) Pacemaker Code(s): Z95.0 - PRESENCE OF CARDIAC PACEMAKER
[2017-05-11] MEDS: AZITHROMYCIN IVPB 500 MG in DEXTROSE 5%-WATER - 250 ML IVPB SCH (10:29)
--- NOTE | 2017-05-11 10:43 | PN ---
Progress Note (short form) - Note Progress Note: s: no cp sob palps dizzy; still with cough o: Vital Signs Period Temp Pulse Resp BP Sys/Torres Pulse Ox Last 24 Hr 97.6 F-98.9 F 82-94 16-96 101-147/51-67 96-96 nad, calm jvd flat, neck supple ctab, nl effort rrr nl s1, s2 2/6 murmur at apex. + bs soft nt nd ext without e/c/c no jaundice diaphoresis alert and oriented Current Medications Generic Name Dose Route Start Last Admin Trade Name Freq PRN Reason Stop Dose Admin Acetaminophen 650 mg 05/09/17 20:42 Tylenol - PO Q6H PRN FEVER OR PAIN Albuterol/Ipratropium 1 amp 05/09/17 20:36 05/09/17 21:55 Duoneb - NEB 1 amp Q6H PRN Administration SHORTNESS OF BREATH Aspirin 81 mg 05/10/17 10:00 05/11/17 09:17 Asa - PO 81 mg DAILY [facility] Administration Atorvastatin Calcium 40 mg 05/09/17 22:00 05/10/17 21:22 Lipitor - PO 40 mg HS [facility] Administration Heparin Sodium (Porcine) 5,000 unit 05/09/17 22:00 05/11/17 09:16 Heparin - SQ 5,000 unit BID [facility] Administration Azithromycin 500 mg/ Dextrose 250 mls @ 250 mls/hr 05/10/17 10:00 05/11/17 10 :29 IVPB 250 mls/hr DAILY [facility] Administration CEFTRIAXONE 1 G/50 ML PREMIX 50 mls @ 100 mls/hr 05/10/17 10:00 05/11/17 09: 16 Ceftriaxone 1 Gm-D5w Bag IVPB 100 mls/hr DAILY [facility] Administration Insulin Aspart 15 units 05/10/17 16:30 05/11/17 06:14 Novolog Mix 70/30 Vial SQ 15 units BIDAC [facility] Administration Insulin Aspart 1 vial 05/10/17 16:30 05/11/17 06:14 Novolog Vial Sliding Scale - SQ Not Given ACHS [facility] Protocol Metoprolol Succinate 25 mg 05/10/17 10:00 05/11/17 09:17 Toprol Xl - PO 25 mg DAILY [facility] Administration Pantoprazole Sodium 20 mg 05/10/17 10:00 05/11/17 09:17 Protonix - PO 20 mg DAILY [facility] Administration Ranolazine 1,000 mg 05/09/17 22:00 05/11/17 09:17 Ranexa - PO 1,000 mg BID [facility] Administration CBC, BMP 05/11/17 06:30 05/11/17 06:30 EKG: As-Septic Tank Installer tele: As-Septic Tank Installer, Ap-Septic Tank Installer. echo 01/2017: tds. mild conc lvh. apical wall motion abnormality may reflect ppm activation. rv size/fn not assessed. 1+ vonnie. mild-mod mr. mod tr. rvsp 45. echo 07/2016: sev ESTEFANIA, no lvot obs, no linda, nl lvef, nl rv, mild lae, mod tr head ct: no acute pathology, chronic microvascular changes, chronic lacunar infarct. atherosclerosis of carotids/verts. repeat head ct 01/30: no sig change carotid u/s 01/2017: mild plaque. no stenosis of internal carotid. possible left external carotid occlusion Periph cath/DIESEL ELECTRICIAN 11/2014: left SFA BATTERYMAN--Atherectomy and AGUEDA, residual BTK disease in right LE--medical rx CMR 03/2011: Severe ESTEFANIA c/w HCM, no LINDA, normal bi-V function, focal scarring R/LHC (2010): normal EDP, PWCP and PA/RV/RA pressures; low cardiac output (CI 2.3) with hyperdynamic LV fxn (no Brockenbrough done); normal cor.s. RV biopsy nonspecific, neg for amyloid, etc. Assessment/Plan 82 yo with h/o HCM s/p ICD for primary prevention, CHB s/p st mariely, dual lead ppm, PAD (s/p DIESEL ELECTRICIAN of left LE), htn, HL, IDDM, GERD, recent admit for dizziness /weakness/gait disturbance/? tia who p/w sob/cough concerning for pna, hospital course c/b elevated troponins and fadumo. Troponin elevation -Troponin borderline elevated in setting of elevated ck. flat trend, not c/w ACS--likely secondary to known severe septal hypertrophy from HCM. can defer stress testing for now. -continue asa, statin, metoprolol, ranexa. monitor bp/running on low end. SOB: - mgm't of pna per pmd, id HCM s/p st. mariely ICD for primary prevention (also with chb) - h/o frequent nsvt on tele. --> con't on metoprolol. Previously on 50 mg bid , may need uptitration once bp improves. - ok for gentle IVF to optimize hcm hemodynamics. No hx of lvot obstruction on echo. - recent device check on january admit. HTN -monitor on current regimen PAD (s/p DIESEL ELECTRICIAN of left LE) - con't asa, statin. CKD with FADUMO - Improving with hydration.
[2017-05-11] MEDS ORDERED: INSULIN (NOVOLOG) ASPART 100 UNITS/ML 10ML VIAL ONE (11:39)
[2017-05-11] MEDS: ACETAMINOPHEN 325 MG TABLET (FP) PO PRN (11:44)
--- NOTE | 2017-05-11 11:58 | PN ---
Progress Note, Physician History of Present Illness: Awake, alert No c/o chest pain/ dyspnea Still with cough productive of dark sputum Temps down Afebrile Influenza screen (-) WBC WNL Azotemia improved - Current Medication List Current Medications: Active Medications Acetaminophen (Tylenol -) 650 mg PO Q6H PRN PRN Reason: FEVER OR PAIN Last Admin: 05/11/17 11:44 Dose: 650 mg Albuterol/Ipratropium (Duoneb -) 1 amp NEB Q6H PRN PRN Reason: SHORTNESS OF BREATH Last Admin: 05/09/17 21:55 Dose: 1 amp Aspirin (Asa -) 81 mg PO DAILY [facility] Last Admin: 05/11/17 09:17 Dose: 81 mg Atorvastatin Calcium (Lipitor -) 40 mg PO HS [facility] Last Admin: 05/10/17 21:22 Dose: 40 mg Heparin Sodium (Porcine) (Heparin -) 5,000 unit SQ BID [facility] Last Admin: 05/11/17 09:16 Dose: 5,000 unit Azithromycin 500 mg/ Dextrose 250 mls @ 250 mls/hr IVPB DAILY [facility] Last Admin: 05/11/17 10:29 Dose: 250 mls/hr CEFTRIAXONE 1 G/50 ML PREMIX (Ceftriaxone 1 Gm-D5w Bag) 50 mls @ 100 mls/hr IVPB DAILY [facility] Last Admin: 05/11/17 09:16 Dose: 100 mls/hr Insulin Aspart (Novolog Mix 70/30 Vial) 15 units SQ BIDAC [facility] Last Admin: 05/11/17 06:14 Dose: 15 units Insulin Aspart (Novolog Vial Sliding Scale -) 1 vial SQ ACHS [facility] PRN Reason: Protocol Last Admin: 05/11/17 11:43 Dose: 5 units Metoprolol Succinate (Toprol Xl -) 25 mg PO DAILY [facility] Last Admin: 05/11/17 09:17 Dose: 25 mg Pantoprazole Sodium (Protonix -) 20 mg PO DAILY [facility] Last Admin: 05/11/17 09:17 Dose: 20 mg Ranolazine (Ranexa -) 1,000 mg PO BID [facility] Last Admin: 05/11/17 09:17 Dose: 1,000 mg - Objective Vital Signs: Vital Signs Temperature 97.3 F L 05/11/17 11:00 Pulse Rate 101 H 05/11/17 11:00 Respiratory Rate 19 05/11/17 11:00 Blood Pressure 100/61 05/11/17 11:00 O2 Sat by Pulse Oximetry (%) 96 05/10/17 21:00 Constitutional: Yes: No Distress Eyes: Yes: Conjunctiva Clear Cardiovascular: Yes: Regular Rate and Rhythm, S1, S2 Respiratory: Yes: Rhonchi, Other (few crepitations at bases) Gastrointestinal: Yes: Normal Bowel Sounds, Soft, Abdomen, Obese. No: Tenderness Labs: CBC, BMP 05/11/17 06:30 05/11/17 06:30 INR, PTT INR 1.27 (0.82-1.09) H 05/09/17 15:30 Assessment/Plan Community acquired v. atypical pneumonia IDDM Azotemia Await c/s Continue empiric zithromax/ ceftriaxone
[2017-05-11] MEDS: ATORVASTATIN CA 40 MG TABLET (FP) PO SCH (23:02)
[2017-05-12] MEDS: INSULIN (NOVOLOG MIX 70/30) 100 UNITS/ML MDV SQ SCH ×2 (06:58→17:10)
[2017-05-12] MEDS: INSULIN SLIDING SCALE (NOVOLOG) 1 VIAL SQ SCH ×4 (06:58→21:31)
[2017-05-12 07:37] LABS: BASO % 0.3 % (0-2.0); EOS % 2.1 % (0-4.5); HEMATOCRIT 42.3 % (35.4-49); HEMOGLOBIN 13.7 GM/dL (11.7-16.9); LYMPH % 13.6 % (8-40); MCH 30.4 pg (25.7-33.7); MCHC 32.3 g/dl (32.0-35.9); MEAN CELL VOLUME 94.2 fl (80-96); MEAN PLT VOLUME 10.6 fl (7.5-11.1); MONO % 8.7 % (3.8-10.2); NEUT % 75.3 % (42.8-82.8); PLATELET COUNT 126 K/MM3 (134-434); RBC 4.49 M/mm3 (4.00-5.60); RDW 15.4 % (11.9-15.9); WHITE BLOOD COUNT 6.6 K/mm3 (4.0-10.0)
[2017-05-12 08:18] LABS: ALBUMIN 1.9 g/dl (3.4-5.0); ANION GAP 9 (8-16); BLOOD UREA NITROGEN 31 mg/dL (7-18); CALCIUM 7.8 mg/dL (8.5-10.1); CHLORIDE 107 mmol/L (98-107); CO2 25 mmol/L (21-32); GLUCOSE,RANDOM 128 mg/dL (74-106); POTASSIUM 4.1 mmol/L (3.5-5.1); SGOT/AST 40 U/L (15-37); SGPT/ALT 26 U/L (12-78); SODIUM 141 mmol/L (136-145)
[2017-05-12 08:20] LABS: ALK PHOS 65 U/L (45-117); BILIRUBIN,TOTAL 0.7 mg/dL (0.2-1.0); CREATININE 1.7 mg/dL (0.7-1.3); TOT PROT 5.6 g/dl (6.4-8.2)
[2017-05-12] MEDS ORDERED: PT OWN MED DRAWER 7, Y5N ONE (08:49)
[2017-05-12] MEDS: METOPROLOL SUCCINATE 25 MG TAB.SR.24H (FP) PO SCH (09:10)
[2017-05-12] MEDS: ASPIRIN 81 MG CHEWABLE TABLETS PO SCH (09:10)
[2017-05-12] MEDS: CEFTRIAXONE 1 G/50 ML PREMIX 50 ML IVPB SCH (09:10)
[2017-05-12] MEDS: PANTOPRAZOLE 20 MG TABLET (FP) PO SCH (09:10)
[2017-05-12] MEDS: HEPARIN NA (PORCINE) 5,000 UNITS/ML 1ML VIAL SQ SCH ×2 (09:10→21:33)
[2017-05-12] MEDS: RANOLAZINE E.R. 1,000 MG TABLET (FP) PO SCH ×2 (09:10→21:33)
[2017-05-12] MEDS: AZITHROMYCIN IVPB 500 MG in DEXTROSE 5%-WATER - 250 ML IVPB SCH (09:19)
[2017-05-12] MEDS: ALBUTEROL SO4 2.5/IPRATROPIUM 0.5 INH SOL 3 ML VIAL.NEB. NEB PRN (09:25)
--- NOTE | 2017-05-12 09:56 | PN ---
Progress Note (short form) - Note Progress Note: Pt seen/ examined continue to improve cough + afebrile Vital Signs Temp 98.9 F 05/12/17 06:00 Pulse 84 05/12/17 06:00 Resp 18 05/12/17 06:00 BP 112/40 05/12/17 06:00 Pulse Ox 99 05/11/17 21:00 Intake & Output 05/11/17 05/11/17 05/12/17 11:59 23:59 11:59 Intake Total 740 1200 Output Total 250 1000 300 Balance 490 200 -300 Weight 183 lb 6.4 oz 182 lb Intake: IVPB 300 Oral 740 900 Output: Urine 250 1000 300 Void 250 1000 300 Other: Voiding Method Urinal Urinal # Unmeasured Voids Void 1 Bowel Movement No Weight Measurement Method Standing Scale Active Medications Acetaminophen (Tylenol -) 650 mg PO Q6H PRN PRN Reason: FEVER OR PAIN Last Admin: 05/11/17 11:44 Dose: 650 mg Albuterol/Ipratropium (Duoneb -) 1 amp NEB Q6H PRN PRN Reason: SHORTNESS OF BREATH Last Admin: 05/12/17 09:25 Dose: 1 amp Aspirin (Asa -) 81 mg PO DAILY [facility] Last Admin: 05/12/17 09:10 Dose: 81 mg Atorvastatin Calcium (Lipitor -) 40 mg PO HS [facility] Last Admin: 05/11/17 23:02 Dose: 40 mg Heparin Sodium (Porcine) (Heparin -) 5,000 unit SQ BID [facility] Last Admin: 05/12/17 09:10 Dose: 5,000 unit Azithromycin 500 mg/ Dextrose 250 mls @ 250 mls/hr IVPB DAILY [facility] Last Admin: 05/12/17 09:19 Dose: 250 mls/hr CEFTRIAXONE 1 G/50 ML PREMIX (Ceftriaxone 1 Gm-D5w Bag) 50 mls @ 100 mls/hr IVPB DAILY [facility] Last Admin: 05/12/17 09:10 Dose: 100 mls/hr Insulin Aspart (Novolog Mix 70/30 Vial) 15 units SQ BIDAC [facility] Last Admin: 05/12/17 06:58 Dose: 15 units Insulin Aspart (Novolog Vial Sliding Scale -) 1 vial SQ ACHS [facility] PRN Reason: Protocol Last Admin: 05/12/17 06:58 Dose: Not Given Metoprolol Succinate (Toprol Xl -) 25 mg PO DAILY [facility] Last Admin: 05/12/17 09:10 Dose: 25 mg Pantoprazole Sodium (Protonix -) 20 mg PO DAILY [facility] Last Admin: 05/12/17 09:10 Dose: 20 mg Ranolazine (Ranexa -) 1,000 mg PO BID [facility] Last Admin: 05/12/17 09:10 Dose: 1,000 mg CBC, BMP 05/12/17 06:00 05/12/17 06:00 Physical Exam awake/ comfortable-- lungs- scattered rhonchi throat- mild congestion. cvs- s1, s2 rrr abd- soft ext- no edema neuro- aox3 a/p IN summary 82 y/o man with a PMHx of: HTN, HLD, DM, CVA, TIA, Renal Insufficiency, PPM. Who presents to the ED with difficulty breathing and a productive cough. Patient reports being sick since last Tuesday productive cough- brown phlegm. Pneumonia Acute on chronic renal insufficiency HTN IDDM Cad s/p ppm hypertrophic cardiomyopathy clinically better continue abx d/c fluids cr - better nebulizer treatment monitor bgm daily oob - chair d/c planning anticipate d/c in 1-2 days of better d/c tele if ok with cardiology. Discussed with nursing staff. Problem List - Problems (1) Acute on chronic renal insufficiency Code(s): N28.9 - DISORDER OF KIDNEY AND URETER, UNSPECIFIED; N18.9 - CHRONIC KIDNEY DISEASE, UNSPECIFIED (2) Pneumonia Code(s): J18.9 - PNEUMONIA, UNSPECIFIED ORGANISM Qualifiers: Pneumonia type: due to unspecified organism Laterality: unspecified laterality Lung location: unspecified part of lung Qualified Code(s): J18.9 - Pneumonia, unspecified organism (3) IDDM (insulin dependent diabetes mellitus) Code(s): E11.9 - TYPE 2 DIABETES MELLITUS WITHOUT COMPLICATIONS; Z79.4 - TRUCK WASHER (CURRENT) USE OF INSULIN (4) Pacemaker Code(s): Z95.0 - PRESENCE OF CARDIAC PACEMAKER
--- NOTE | 2017-05-12 11:44 | PN ---
Progress Note (short form) - Note Progress Note: s: no cp sob palps dizzy; still with cough but less o: Vital Signs Period Temp Pulse Resp BP Sys/Torres Pulse Ox Last 24 Hr 97.5 F-98.9 F 81-84 16-18 112-138/40-77 99-99 nad, calm jvd flat, neck supple ctab, nl effort rrr nl s1, s2 2/6 murmur at apex. + bs soft nt nd ext without e/c/c no jaundice diaphoresis alert and oriented Current Medications Generic Name Dose Route Start Last Admin Trade Name Freq PRN Reason Stop Dose Admin Acetaminophen 650 mg 05/09/17 20:42 05/11/17 11:44 Tylenol - PO 650 mg Q6H PRN Administration FEVER OR PAIN Albuterol/Ipratropium 1 amp 05/09/17 20:36 05/12/17 09:25 Duoneb - NEB 1 amp Q6H PRN Administration SHORTNESS OF BREATH Aspirin 81 mg 05/10/17 10:00 05/12/17 09:10 Asa - PO 81 mg DAILY [facility] Administration Atorvastatin Calcium 40 mg 05/09/17 22:00 05/11/17 23:02 Lipitor - PO 40 mg HS [facility] Administration Heparin Sodium (Porcine) 5,000 unit 05/09/17 22:00 05/12/17 09:10 Heparin - SQ 5,000 unit BID [facility] Administration Azithromycin 500 mg/ Dextrose 250 mls @ 250 mls/hr 05/10/17 10:00 05/12/17 09 :19 IVPB 250 mls/hr DAILY [facility] Administration CEFTRIAXONE 1 G/50 ML PREMIX 50 mls @ 100 mls/hr 05/10/17 10:00 05/12/17 09: 10 Ceftriaxone 1 Gm-D5w Bag IVPB 100 mls/hr DAILY [facility] Administration Insulin Aspart 15 units 05/10/17 16:30 05/12/17 06:58 Novolog Mix 70/30 Vial SQ 15 units BIDAC [facility] Administration Insulin Aspart 1 vial 05/10/17 16:30 05/12/17 06:58 Novolog Vial Sliding Scale - SQ Not Given ACHS [facility] Protocol Metoprolol Succinate 25 mg 05/10/17 10:00 05/12/17 09:10 Toprol Xl - PO 25 mg DAILY [facility] Administration Pantoprazole Sodium 20 mg 05/10/17 10:00 05/12/17 09:10 Protonix - PO 20 mg DAILY [facility] Administration Ranolazine 1,000 mg 05/09/17 22:00 05/12/17 09:10 Ranexa - PO 1,000 mg BID [facility] Administration CBC, BMP 05/12/17 06:00 05/12/17 06:00 EKG: As-Design Technician tele: As-Design Technician, Ap-Design Technician. echo 01/2017: tds. mild conc lvh. apical wall motion abnormality may reflect ppm activation. rv size/fn not assessed. 1+ vonnie. mild-mod mr. mod tr. rvsp 45. echo 07/2016: sev ESTEFANIA, no lvot obs, no linda, nl lvef, nl rv, mild lae, mod tr head ct: no acute pathology, chronic microvascular changes, chronic lacunar infarct. atherosclerosis of carotids/verts. repeat head ct 01/30: no sig change carotid u/s 01/2017: mild plaque. no stenosis of internal carotid. possible left external carotid occlusion Periph cath/COMMUTATOR TESTER 11/2014: left SFA LIVESTOCK TRADER--Atherectomy and AGUEDA, residual BTK disease in right LE--medical rx CMR 03/2011: Severe ESTEFANIA c/w HCM, no LINDA, normal bi-V function, focal scarring R/LHC (2010): normal EDP, PWCP and PA/RV/RA pressures; low cardiac output (CI 2.3) with hyperdynamic LV fxn (no Brockenbrough done); normal cor.s. RV biopsy nonspecific, neg for amyloid, etc. Assessment/Plan 82 yo with h/o HCM s/p ICD for primary prevention, CHB s/p st mariely, dual lead ppm, PAD (s/p COMMUTATOR TESTER of left LE), htn, HL, IDDM, GERD, recent admit for dizziness /weakness/gait disturbance/? tia who p/w sob/cough concerning for pna, hospital course c/b elevated troponins and akhil. Troponin elevation -Troponin borderline elevated in setting of elevated ck. flat trend, not c/w ACS--likely secondary to known severe septal hypertrophy from HCM. can defer stress testing for now. -continue asa, statin, metoprolol, ranexa. SOB: - mgm't of pna per pmd, id HCM s/p st. mariely ICD for primary prevention (also with chb) - h/o frequent nsvt on tele. --> con't on metoprolol. Previously on 50 mg bid , may need uptitration once bp improves. - ok for gentle IVF to optimize hcm hemodynamics. No hx of lvot obstruction on echo. - recent device check on january admit. HTN -monitor on current regimen PAD (s/p COMMUTATOR TESTER of left LE) - con't asa, statin. ckd: -stable
--- NOTE | 2017-05-12 14:51 | PN ---
Progress Note, Physician History of Present Illness: Awake, alert OOB in chair No c/o chest pain/ dyspnea Still with cough - yellow sputum Temps down Afebrile Influenza screen (-) WBC WNL Azotemia improved - Current Medication List Current Medications: Active Medications Acetaminophen (Tylenol -) 650 mg PO Q6H PRN PRN Reason: FEVER OR PAIN Last Admin: 05/11/17 11:44 Dose: 650 mg Albuterol/Ipratropium (Duoneb -) 1 amp NEB Q6H PRN PRN Reason: SHORTNESS OF BREATH Last Admin: 05/12/17 09:25 Dose: 1 amp Aspirin (Asa -) 81 mg PO DAILY [facility] Last Admin: 05/12/17 09:10 Dose: 81 mg Atorvastatin Calcium (Lipitor -) 40 mg PO HS [facility] Last Admin: 05/11/17 23:02 Dose: 40 mg Heparin Sodium (Porcine) (Heparin -) 5,000 unit SQ BID [facility] Last Admin: 05/12/17 09:10 Dose: 5,000 unit Azithromycin 500 mg/ Dextrose 250 mls @ 250 mls/hr IVPB DAILY [facility] Last Admin: 05/12/17 09:19 Dose: 250 mls/hr CEFTRIAXONE 1 G/50 ML PREMIX (Ceftriaxone 1 Gm-D5w Bag) 50 mls @ 100 mls/hr IVPB DAILY [facility] Last Admin: 05/12/17 09:10 Dose: 100 mls/hr Insulin Aspart (Novolog Mix 70/30 Vial) 15 units SQ BIDAC [facility] Last Admin: 05/12/17 06:58 Dose: 15 units Insulin Aspart (Novolog Vial Sliding Scale -) 1 vial SQ ACHS [facility] PRN Reason: Protocol Last Admin: 05/12/17 12:00 Dose: 3 units Metoprolol Succinate (Toprol Xl -) 25 mg PO DAILY [facility] Last Admin: 05/12/17 09:10 Dose: 25 mg Pantoprazole Sodium (Protonix -) 20 mg PO DAILY [facility] Last Admin: 05/12/17 09:10 Dose: 20 mg Ranolazine (Ranexa -) 1,000 mg PO BID [facility] Last Admin: 05/12/17 09:10 Dose: 1,000 mg - Objective Vital Signs: Vital Signs Temperature 98.0 F 05/12/17 10:00 Pulse Rate 83 05/12/17 10:00 Respiratory Rate 18 05/12/17 10:00 Blood Pressure 112/46 05/12/17 10:00 O2 Sat by Pulse Oximetry (%) 99 05/12/17 09:00 Constitutional: Yes: No Distress Cardiovascular: Yes: Regular Rate and Rhythm, S1, S2 Respiratory: Yes: Rhonchi Gastrointestinal: Yes: Normal Bowel Sounds, Soft. No: Tenderness Edema: No Labs: CBC, BMP 05/12/17 06:00 05/12/17 06:00 INR, PTT INR 1.27 (0.82-1.09) H 05/09/17 15:30 Assessment/Plan Community acquired v. atypical pneumonia IDDM Azotemia Continue empiric zithromax/ ceftriaxone
[2017-05-12] MEDS: DOCUSATE SODIUM 100 MG CAPSULE (FP) PO SCH (21:34)
[2017-05-12] MEDS: POLYETHYLENE GLYCOL 3350 119 GM BTL PO SCH (21:34)
[2017-05-12] MEDS: ATORVASTATIN CA 40 MG TABLET (FP) PO SCH (21:34)
[2017-05-12] MEDS ORDERED: OSELTAMIVIR PHOSPHATE 75 MG CAPSULE PO SCH (22:00)
[2017-05-13] MEDS: INSULIN (NOVOLOG MIX 70/30) 100 UNITS/ML MDV SQ SCH ×2 (06:11→17:16)
[2017-05-13] MEDS: INSULIN SLIDING SCALE (NOVOLOG) 1 VIAL SQ SCH ×4 (06:12→22:05)
[2017-05-13] MEDS: PANTOPRAZOLE 20 MG TABLET (FP) PO SCH (09:58)
[2017-05-13] MEDS: RANOLAZINE E.R. 1,000 MG TABLET (FP) PO SCH ×2 (09:58→22:03)
[2017-05-13] MEDS: ASPIRIN 81 MG CHEWABLE TABLETS PO SCH (09:58)
[2017-05-13] MEDS: CEFTRIAXONE 1 G/50 ML PREMIX 50 ML IVPB SCH (09:58)
[2017-05-13] MEDS: AZITHROMYCIN IVPB 500 MG in DEXTROSE 5%-WATER - 250 ML IVPB SCH (09:58)
[2017-05-13] MEDS: METOPROLOL SUCCINATE 25 MG TAB.SR.24H (FP) PO SCH (09:58)
[2017-05-13] MEDS: POLYETHYLENE GLYCOL 3350 119 GM BTL PO SCH ×2 (09:59→22:05)
[2017-05-13] MEDS: HEPARIN NA (PORCINE) 5,000 UNITS/ML 1ML VIAL SQ SCH ×2 (09:59→22:03)
--- NOTE | 2017-05-13 11:10 | PN ---
Progress Note (short form) - Note Progress Note: pt seen/ examined still coughing with yellowish expectorant feels weak denies cp afebrile Vital Signs Temp 97.5 F L 05/13/17 05:04 Pulse 80 05/13/17 05:04 Resp 16 05/13/17 05:04 BP 129/57 05/13/17 05:04 Pulse Ox 98 05/12/17 20:40 Intake & Output 05/12/17 05/12/17 05/13/17 11:59 23:59 11:59 Intake Total 370 780 Output Total 300 650 200 Balance 70 130 -200 Weight 182 lb Intake: IV 10 l.hand #20 05/09/17 10 Oral 370 770 Output: Urine 300 650 200 Void 300 650 200 Other: Voiding Method Urinal Urinal # Unmeasured Voids Void 1 Bowel Movement No No Weight Measurement Method Standing Scale Active Medications Acetaminophen (Tylenol -) 650 mg PO Q6H PRN PRN Reason: FEVER OR PAIN Last Admin: 05/11/17 11:44 Dose: 650 mg Albuterol/Ipratropium (Duoneb -) 1 amp NEB Q6H PRN PRN Reason: SHORTNESS OF BREATH Last Admin: 05/12/17 09:25 Dose: 1 amp Aspirin (Asa -) 81 mg PO DAILY [facility] Last Admin: 05/13/17 09:58 Dose: 81 mg Atorvastatin Calcium (Lipitor -) 40 mg PO HS [facility] Last Admin: 05/12/17 21:34 Dose: 40 mg Docusate Sodium (Colace -) 300 mg PO HS [facility] Last Admin: 05/12/17 21:34 Dose: 300 mg Heparin Sodium (Porcine) (Heparin -) 5,000 unit SQ BID [facility] Last Admin: 05/13/17 09:59 Dose: 5,000 unit Azithromycin 500 mg/ Dextrose 250 mls @ 250 mls/hr IVPB DAILY [facility] Last Admin: 05/13/17 09:58 Dose: 250 mls/hr CEFTRIAXONE 1 G/50 ML PREMIX (Ceftriaxone 1 Gm-D5w Bag) 50 mls @ 100 mls/hr IVPB DAILY [facility] Last Admin: 05/13/17 09:58 Dose: 100 mls/hr Insulin Aspart (Novolog Mix 70/30 Vial) 15 units SQ BIDAC [facility] Last Admin: 05/13/17 06:11 Dose: 15 units Insulin Aspart (Novolog Vial Sliding Scale -) 1 vial SQ ACHS [facility] PRN Reason: Protocol Last Admin: 05/13/17 06:12 Dose: 3 units Metoprolol Succinate (Toprol Xl -) 25 mg PO DAILY [facility] Last Admin: 05/13/17 09:58 Dose: 25 mg Pantoprazole Sodium (Protonix -) 20 mg PO DAILY [facility] Last Admin: 05/13/17 09:58 Dose: 20 mg Polyethylene Glycol (Miralax (For Daily Use) -) 17 gm PO BID [facility] Last Admin: 05/13/17 09:59 Dose: 17 grams Ranolazine (Ranexa -) 1,000 mg PO BID [facility] Last Admin: 05/13/17 09:58 Dose: 1,000 mg CBC, BMP 05/12/17 06:00 05/12/17 06:00 Physical Exam awake/ comfortable-- lungs- scattered rhonchi throat- mild congestion. cvs- s1, s2 rrr abd- soft ext- no edema neuro- aox3 a/p Pneumonia Acute on chronic renal insufficiency HTN IDDM Cad s/p ppm hypertrophic cardiomyopathy clinically same continue abx i/d to follow nebulizer treatment monitor bgm daily oob - chair d/c tele Problem List - Problems (1) Acute on chronic renal insufficiency Code(s): N28.9 - DISORDER OF KIDNEY AND URETER, UNSPECIFIED; N18.9 - CHRONIC KIDNEY DISEASE, UNSPECIFIED (2) Pneumonia Code(s): J18.9 - PNEUMONIA, UNSPECIFIED ORGANISM Qualifiers: Pneumonia type: due to unspecified organism Laterality: unspecified laterality Lung location: unspecified part of lung Qualified Code(s): J18.9 - Pneumonia, unspecified organism (3) IDDM (insulin dependent diabetes mellitus) Code(s): E11.9 - TYPE 2 DIABETES MELLITUS WITHOUT COMPLICATIONS; Z79.4 - INTERMEDIATE (CURRENT) USE OF INSULIN (4) Pacemaker Code(s): Z95.0 - PRESENCE OF CARDIAC PACEMAKER
--- NOTE | 2017-05-13 11:44 | PN ---
Progress Note (short form) - Note Progress Note: s: no cp sob palps dizzy; still with cough but less o: Vital Signs Period Temp Pulse Resp BP Sys/Torres Pulse Ox Last 24 Hr 97.5 F-98.7 F 73-83 16-20 114-129/45-60 91-98 nad, calm jvd flat, neck supple ctab, nl effort rrr nl s1, s2 2/6 murmur at apex. + bs soft nt nd ext without e/c/c no jaundice diaphoresis alert and oriented Current Medications Generic Name Dose Route Start Last Admin Trade Name Freq PRN Reason Stop Dose Admin Acetaminophen 650 mg 05/09/17 20:42 05/11/17 11:44 Tylenol - PO 650 mg Q6H PRN Administration FEVER OR PAIN Albuterol/Ipratropium 1 amp 05/09/17 20:36 05/12/17 09:25 Duoneb - NEB 1 amp Q6H PRN Administration SHORTNESS OF BREATH Aspirin 81 mg 05/10/17 10:00 05/13/17 09:58 Asa - PO 81 mg DAILY [facility] Administration Atorvastatin Calcium 40 mg 05/09/17 22:00 05/12/17 21:34 Lipitor - PO 40 mg HS [facility] Administration Docusate Sodium 300 mg 05/12/17 22:00 05/12/17 21:34 Colace - PO 300 mg HS [facility] Administration Heparin Sodium (Porcine) 5,000 unit 05/09/17 22:00 05/13/17 09:59 Heparin - SQ 5,000 unit BID [facility] Administration Azithromycin 500 mg/ Dextrose 250 mls @ 250 mls/hr 05/10/17 10:00 05/13/17 09 :58 IVPB 250 mls/hr DAILY [facility] Administration CEFTRIAXONE 1 G/50 ML PREMIX 50 mls @ 100 mls/hr 05/10/17 10:00 05/13/17 09: 58 Ceftriaxone 1 Gm-D5w Bag IVPB 100 mls/hr DAILY [facility] Administration Insulin Aspart 15 units 05/10/17 16:30 05/13/17 06:11 Novolog Mix 70/30 Vial SQ 15 units BIDAC [facility] Administration Insulin Aspart 1 vial 05/10/17 16:30 05/13/17 11:13 Novolog Vial Sliding Scale - SQ Not Given ACHS [facility] Protocol Metoprolol Succinate 25 mg 05/10/17 10:00 05/13/17 09:58 Toprol Xl - PO 25 mg DAILY [facility] Administration Pantoprazole Sodium 20 mg 05/10/17 10:00 05/13/17 09:58 Protonix - PO 20 mg DAILY [facility] Administration Polyethylene Glycol 17 gm 05/12/17 22:00 05/13/17 09:59 Miralax (For Daily Use) - PO 17 grams BID [facility] Administration Ranolazine 1,000 mg 05/09/17 22:00 05/13/17 09:58 Ranexa - PO 1,000 mg BID [facility] Administration CBC, BMP 05/12/17 06:00 05/12/17 06:00 EKG: As-Property Disposal Officer tele: As-Property Disposal Officer, Ap-Property Disposal Officer. echo 01/2017: tds. mild conc lvh. apical wall motion abnormality may reflect ppm activation. rv size/fn not assessed. 1+ vonnie. mild-mod mr. mod tr. rvsp 45. echo 07/2016: sev ESTEFANIA, no lvot obs, no linda, nl lvef, nl rv, mild lae, mod tr head ct: no acute pathology, chronic microvascular changes, chronic lacunar infarct. atherosclerosis of carotids/verts. repeat head ct 01/30: no sig change carotid u/s 01/2017: mild plaque. no stenosis of internal carotid. possible left external carotid occlusion Periph cath/LAP MACHINE OPERATOR 11/2014: left SFA DRIER AND GRINDER TENDER--Atherectomy and AGUEDA, residual BTK disease in right LE--medical rx CMR 03/2011: Severe ESTEFANIA c/w HCM, no LINDA, normal bi-V function, focal scarring R/LHC (2010): normal EDP, PWCP and PA/RV/RA pressures; low cardiac output (CI 2.3) with hyperdynamic LV fxn (no Brockenbrough done); normal cor.s. RV biopsy nonspecific, neg for amyloid, etc. Assessment/Plan 82 yo with h/o HCM s/p ICD for primary prevention, CHB s/p st mariely, dual lead ppm, PAD (s/p LAP MACHINE OPERATOR of left LE), htn, HL, IDDM, GERD, recent admit for dizziness /weakness/gait disturbance/? tia who p/w sob/cough concerning for pna, hospital course c/b elevated troponins and akhil. Troponin elevation -Troponin borderline elevated in setting of elevated ck. flat trend, not c/w ACS--likely secondary to known severe septal hypertrophy from HCM. can defer stress testing for now. -continue asa, statin, metoprolol, ranexa. SOB: - mgm't of pna per pmd, id HCM s/p st. mariely ICD for primary prevention (also with chb) - h/o frequent nsvt on tele. --> con't on metoprolol. Previously on 50 mg bid , may need uptitration once bp improves. - ok for gentle IVF to optimize hcm hemodynamics. No hx of lvot obstruction on echo. - recent device check on january admit. HTN -monitor on current regimen PAD (s/p LAP MACHINE OPERATOR of left LE) - con't asa, statin. ckd: -stable dc tele
--- NOTE | 2017-05-13 12:28 | PN ---
Progress Note, Physician History of Present Illness: Awake, alert Seated in bed Breathing non-labored No c/o chest pain/ dyspnea Less cough - yellow sputum Temps down Afebrile WBC WNL Azotemia improved - Current Medication List Current Medications: Active Medications Acetaminophen (Tylenol -) 650 mg PO Q6H PRN PRN Reason: FEVER OR PAIN Last Admin: 05/11/17 11:44 Dose: 650 mg Albuterol/Ipratropium (Duoneb -) 1 amp NEB Q6H PRN PRN Reason: SHORTNESS OF BREATH Last Admin: 05/12/17 09:25 Dose: 1 amp Aspirin (Asa -) 81 mg PO DAILY [facility] Last Admin: 05/13/17 09:58 Dose: 81 mg Atorvastatin Calcium (Lipitor -) 40 mg PO HS [facility] Last Admin: 05/12/17 21:34 Dose: 40 mg Docusate Sodium (Colace -) 300 mg PO HS [facility] Last Admin: 05/12/17 21:34 Dose: 300 mg Heparin Sodium (Porcine) (Heparin -) 5,000 unit SQ BID [facility] Last Admin: 05/13/17 09:59 Dose: 5,000 unit Azithromycin 500 mg/ Dextrose 250 mls @ 250 mls/hr IVPB DAILY [facility] Last Admin: 05/13/17 09:58 Dose: 250 mls/hr CEFTRIAXONE 1 G/50 ML PREMIX (Ceftriaxone 1 Gm-D5w Bag) 50 mls @ 100 mls/hr IVPB DAILY [facility] Last Admin: 05/13/17 09:58 Dose: 100 mls/hr Insulin Aspart (Novolog Mix 70/30 Vial) 15 units SQ BIDAC [facility] Last Admin: 05/13/17 06:11 Dose: 15 units Insulin Aspart (Novolog Vial Sliding Scale -) 1 vial SQ ACHS [facility] PRN Reason: Protocol Last Admin: 05/13/17 11:13 Dose: Not Given Metoprolol Succinate (Toprol Xl -) 25 mg PO DAILY [facility] Last Admin: 05/13/17 09:58 Dose: 25 mg Pantoprazole Sodium (Protonix -) 20 mg PO DAILY [facility] Last Admin: 05/13/17 09:58 Dose: 20 mg Polyethylene Glycol (Miralax (For Daily Use) -) 17 gm PO BID [facility] Last Admin: 05/13/17 09:59 Dose: 17 grams Ranolazine (Ranexa -) 1,000 mg PO BID [facility] Last Admin: 05/13/17 09:58 Dose: 1,000 mg - Objective Vital Signs: Vital Signs Temperature 97.5 F L 05/13/17 10:00 Pulse Rate 81 05/13/17 10:00 Respiratory Rate 18 05/13/17 10:00 Blood Pressure 120/58 05/13/17 10:00 O2 Sat by Pulse Oximetry (%) 91 L 05/13/17 09:00 Constitutional: Yes: No Distress Eyes: Yes: Conjunctiva Clear Cardiovascular: Yes: Regular Rate and Rhythm, S1, S2 Respiratory: Yes: Diminished Gastrointestinal: Yes: Normal Bowel Sounds, Soft. No: Tenderness Edema: No Labs: CBC, BMP 05/12/17 06:00 05/12/17 06:00 INR, PTT INR 1.27 (0.82-1.09) H 05/09/17 15:30 Assessment/Plan Community acquired v. atypical pneumonia - improved IDDM Azotemia Continue empiric zithromax/ ceftriaxone
[2017-05-13] MEDS: ALBUTEROL SO4 2.5/IPRATROPIUM 0.5 INH SOL 3 ML VIAL.NEB. NEB PRN (21:22)
[2017-05-13] MEDS: DOCUSATE SODIUM 100 MG CAPSULE (FP) PO SCH (22:02)
[2017-05-13] MEDS: ATORVASTATIN CA 40 MG TABLET (FP) PO SCH (22:03)
[2017-05-13] MEDS ORDERED: INSULIN (NOVOLOG) ASPART 100 UNITS/ML 10ML VIAL ONE (22:04)
[2017-05-14] MEDS: INSULIN SLIDING SCALE (NOVOLOG) 1 VIAL SQ SCH ×3 (06:00→17:34)
[2017-05-14] MEDS: INSULIN (NOVOLOG MIX 70/30) 100 UNITS/ML MDV SQ SCH ×2 (06:35→17:34)
[2017-05-14] MEDS: ACETAMINOPHEN 325 MG TABLET (FP) PO PRN (06:35)
--- NOTE | 2017-05-14 07:59 | PN ---
Progress Note, Physician - Current Medication List Current Medications: Active Medications Acetaminophen (Tylenol -) 650 mg PO Q6H PRN PRN Reason: FEVER OR PAIN Last Admin: 05/14/17 06:35 Dose: 650 mg Albuterol/Ipratropium (Duoneb -) 1 amp NEB Q6H PRN PRN Reason: SHORTNESS OF BREATH Last Admin: 05/13/17 21:22 Dose: 1 amp Aspirin (Asa -) 81 mg PO DAILY [facility] Last Admin: 05/13/17 09:58 Dose: 81 mg Atorvastatin Calcium (Lipitor -) 40 mg PO HS [facility] Last Admin: 05/13/17 22:03 Dose: 40 mg Docusate Sodium (Colace -) 300 mg PO HS [facility] Last Admin: 05/13/17 22:02 Dose: 300 mg Heparin Sodium (Porcine) (Heparin -) 5,000 unit SQ BID [facility] Last Admin: 05/13/17 22:03 Dose: 5,000 unit Azithromycin 500 mg/ Dextrose 250 mls @ 250 mls/hr IVPB DAILY [facility] Last Admin: 05/13/17 09:58 Dose: 250 mls/hr CEFTRIAXONE 1 G/50 ML PREMIX (Ceftriaxone 1 Gm-D5w Bag) 50 mls @ 100 mls/hr IVPB DAILY [facility] Last Admin: 05/13/17 09:58 Dose: 100 mls/hr Insulin Aspart (Novolog Mix 70/30 Vial) 15 units SQ BIDAC [facility] Last Admin: 05/14/17 06:35 Dose: 15 units Insulin Aspart (Novolog Vial Sliding Scale -) 1 vial SQ ACHS [facility] PRN Reason: Protocol Last Admin: 05/14/17 06:00 Dose: Not Given Metoprolol Succinate (Toprol Xl -) 25 mg PO DAILY [facility] Last Admin: 05/13/17 09:58 Dose: 25 mg Pantoprazole Sodium (Protonix -) 20 mg PO DAILY [facility] Last Admin: 05/13/17 09:58 Dose: 20 mg Polyethylene Glycol (Miralax (For Daily Use) -) 17 gm PO BID [facility] Last Admin: 05/13/17 22:05 Dose: 17 grams Ranolazine (Ranexa -) 1,000 mg PO BID [facility] Last Admin: 05/13/17 22:03 Dose: 1,000 mg - Objective Vital Signs: Vital Signs Temperature 98.2 F 05/14/17 06:00 Pulse Rate 85 01/13/18 06:00 Respiratory Rate 20 05/14/17 06:00 Blood Pressure 128/77 05/14/17 06:00 O2 Sat by Pulse Oximetry (%) 96 05/13/17 21:00 Labs: CBC, BMP 05/12/17 06:00 05/12/17 06:00 INR, PTT INR 1.27 (0.82-1.09) H 05/09/17 15:30 Assessment/Plan EKG: As-Head Counselor echo 01/2017: tds. mild conc lvh. apical wall motion abnormality may reflect ppm activation. rv size/fn not assessed. 1+ vonnie. mild-mod mr. mod tr. rvsp 45. echo 07/2016: sev ESTEFANIA, no lvot obs, no linda, nl lvef, nl rv, mild lae, mod tr head ct: no acute pathology, chronic microvascular changes, chronic lacunar infarct. atherosclerosis of carotids/verts. repeat head ct 01/30: no sig change Periph cath/SIDEHAND 11/2014: left SFA STOCK HOLDER--Atherectomy and AGUEDA, residual BTK disease in right LE--medical rx CMR 03/2011: Severe ESTEFANIA c/w HCM, no LINDA, normal bi-V function, focal scarring R/LHC (2010): normal EDP, PWCP and PA/RV/RA pressures; low cardiac output (CI 2.3) with hyperdynamic LV fxn (no Brockenbrough done); normal cor.s. RV biopsy nonspecific, neg for amyloid, etc. Assessment/Plan 82 yo with h/o HCM s/p ICD for primary prevention, CHB s/p st mariely, dual lead ppm, PAD (s/p SIDEHAND of left LE), htn, HL, IDDM, GERD, recent admit for dizziness /weakness/gait disturbance/? tia who p/w sob/cough concerning for pna, hospital course c/b elevated troponins and fadumo. Troponin elevation -Troponin mildly elevated, flat trend, not c/w ACS--likely secondary to known severe septal hypertrophy from HCM. can defer stress testing for now unless develops sx's of myocardial ischemia. -continue asa, statin, metoprolol, ranexa. -d/c telemetry SOB: - mgm't of pna per pmd, id HCM s/p st. mariely ICD for primary prevention (also with chb) - no h/o LVOT obstruction - h/o frequent nsvt on tele. --> con't on metoprolol. Previously on 50 mg bid , may need uptitration once bp improves. - routine ICD f/u in office per prior plan HTN -bp controlled -same meds FADUMO on ckd: -baseline creat 1.5-1.8 -initial elevation ? vol depletion vs sepsis--renal fxn now back to baseline PAD (s/p SIDEHAND of left LE) - con't asa, statin.
[2017-05-14] MEDS: METOPROLOL SUCCINATE 25 MG TAB.SR.24H (FP) PO SCH (09:02)
[2017-05-14] MEDS: HEPARIN NA (PORCINE) 5,000 UNITS/ML 1ML VIAL SQ SCH (09:02)
[2017-05-14] MEDS: CEFTRIAXONE 1 G/50 ML PREMIX 50 ML IVPB SCH (09:02)
[2017-05-14] MEDS: ASPIRIN 81 MG CHEWABLE TABLETS PO SCH (09:02)
[2017-05-14] MEDS: PANTOPRAZOLE 20 MG TABLET (FP) PO SCH (09:02)
[2017-05-14] MEDS: RANOLAZINE E.R. 1,000 MG TABLET (FP) PO SCH (09:02)
[2017-05-14] MEDS: POLYETHYLENE GLYCOL 3350 119 GM BTL PO SCH (09:15)
[2017-05-14] MEDS: AZITHROMYCIN IVPB 500 MG in DEXTROSE 5%-WATER - 250 ML IVPB SCH (11:02)
--- NOTE | 2017-05-14 13:35 | DS ---
Physical Examination Vital Signs: Vital Signs Temperature 98.4 F 05/14/17 09:03 Pulse Rate 82 05/14/17 09:03 Respiratory Rate 18 05/14/17 09:03 Blood Pressure 114/52 05/14/17 09:03 O2 Sat by Pulse Oximetry (%) 96 05/14/17 09:00 Findings/Remarks: feels much better cough decreased wants to go home afebrile Constitutional: Yes: No Distress Neck: Yes: Supple Cardiovascular: Yes: Regular Rate and Rhythm Respiratory: Yes: Diminished (at bases) Gastrointestinal: Yes: Soft Edema: No Neurological: Yes: Alert Labs: CBC, BMP 05/12/17 06:00 05/12/17 06:00 Discharge Summary Reason For Visit: ACUTE ON CHRONIC RENAL INSUFFICIENT Current Active Problems Acute on chronic renal insufficiency (Acute) DVT prophylaxis (Acute) Demand ischemia (Acute) HTN (hypertension) (Acute) Pneumonia (Acute) Hospital Course: 82 y/o man with a PMHx of: HTN, HLD, DM, CVA, TIA, Renal Insufficiency, PPM. Who presents to the ED with difficulty breathing and a productive cough. Patient reports being sick since last Tuesday productive cough- brown phlegm. Admitted for Atypical/ community acquired pneumonia/ arf on crf treated with abx and mild hydration condition improved will discharge on po abx toprol xl dose also decreased as pressure on low side discussed with pt strongly advised to follow in office this week meds reconcilled will d/c on po abx meds send to pharmacy discussed with nursing staff discharge time 35 min in examing/ documenting and coordating care Condition: Guarded - Instructions Diet, Activity, Other Instructions: FOLLOW UP WITH YOUR MD ADVISED Referrals: Kirill Albarado MD [Staff Physician] - Loly Merino MD [Staff Physician] - Disposition: VNS/HOME HEALTH CARE - Home Medications Comprehensive Discharge Medication List: Ambulatory Orders Omeprazole Magnesium [Prilosec (OTC)] 20 mg PO DAILY 12/15/11 Aspirin Coated [Ecotrin -] 325 mg PO DAILY #30 tab 02/02/17 Insulin (Novolog 70/30) [Novolog Mix 70/30 Vial -] 15 units SQ BID@0700,1630 # 10 vial 02/02/17 Acetaminophen [Tylenol .Regular Strength -] 650 mg PO Q6H PRN tablet 05/14/17 Albuterol 2.5/Ipratropium 0.5 [Duoneb -] 1 amp NEB Q6H PRN amp 05/14/17 Amoxicillin/Potassium Clav [Augmentin 500-125 Tablet] 1 each PO BID #6 tablet Atorvastatin Ca [Lipitor] 40 mg PO HS tablet 05/14/17 Docusate Sodium [Colace -] 300 mg PO HS capsule 05/14/17 Metoprolol Succinate [Toprol XL -] 25 mg PO DAILY 30 Days #30 tab.sr.24h Polyethylene Glycol 3350 [Miralax 119 gm Btl -] 17 gm PO BID bottle 05/14/17 Ranolazine [Ranexa -] 1,000 mg PO BID tab 05/14/17
[2017-05-14 17:29] VITALS: BP 149/59; PULSE 72; TEMP 97.4
== END 2017-05-14 18:42 | disposition home health service (06) | DRG 682 ==
LOC: JER 14:02 → JERBED 18:42 → J4S 05-10 19:00 → J8W 05-14 10:16
PROVIDERS: ADMIT Hospitalist; ATTEND Internal Medicine
DX: N17.9 Acute kidney failure, unspecified (principal); J18.9 Pneumonia, unspecified organism; I42.2 Other hypertrophic cardiomyopathy; I24.8 Other forms of acute ischemic heart disease; I13.0 Hypertensive heart and chronic kidney disease with heart failure and stage 1 through stage 4 chronic kidney disease, or unspecified chronic kidney disease; I50.32 Chronic diastolic (congestive) heart failure; N18.9 Chronic kidney disease, unspecified; E11.9 Type 2 diabetes mellitus without complications; K21.9 Gastro-esophageal reflux disease without esophagitis; Z95.0 Presence of cardiac pacemaker; E78.5 Hyperlipidemia, unspecified; E11.22 Type 2 diabetes mellitus with diabetic chronic kidney disease; Z79.4 Long term (current) use of insulin
CPT/HCPCS: 36415; 71045-TC; 80048; 80053; 80061; 81003; 81015; 82550; 82553; 82803; 82962; 83036; 83605; 83721; 83735; 84100; 84484; 85025; 85610; 85730; 87040; 87086; 87804; 87899; 93005; 93010; 94640; 97116-GP; 97161-GP; 99285-25; J1644

== ENCOUNTER 2019-02-19 13:26 | Day surgery (SDC) | payer OTHER ==
[2019-02-19 14:58] VITALS: BMI 29.0
[2019-02-19 18:04] VITALS: BP 166/68; PULSE 64; TEMP 98.2
--- NOTE | 2019-02-19 18:37 | OP ---
DATE OF OPERATION: DATE OF DICTATION: 02/19/2019 TYPE OF PROCEDURE: PEG removal. PREPROCEDURE PROBLEM: Status post PEG tube, dysphagia resolved. OPERATIVE FINDINGS: The abdominal wall was free of any erosions or ulcers. The PEG site was clean. The 20-[place] PEG tube was removed successfully. There was no bleeding noted. Prior to removal of the PEG, the PEG site was cleaned with Betadine solution. The area was observed for 20 minutes, and no further bleeding was noted. The procedure was terminated, and patient tolerated the procedure well. RECOMMENDATION: Apply bacitracin ointment twice a day with sterile dressing for 3 days. Rigo PRECIADO/[id number] cc: [facility]
== END 2019-02-19 16:30 | disposition home or self-care (01) ==
LOC: JASU-ENDO 13:26
PROVIDERS: ATTEND Internal Medicine Gastroenterology
PROC: 0DP6XUZ Removal of Feeding Device from Stomach, External Approach (ICD-10-PCS; principal; 2019-02-19)
DX: Z43.1 Encounter for attention to gastrostomy (principal)

== ENCOUNTER 2019-08-01 18:21 | Inpatient (IN) | payer OTHER ==
[2019-08-01 18:38] VITALS: BMI 23.6
[2019-08-01 20:33] LABS: BASO % 0.2 % (0-2.0); HEMATOCRIT 40.5 % (35.4-49); HEMOGLOBIN 13.5 GM/dL (11.7-16.9); LYMPH % 20.9 % (8-40); MCH 31.1 pg (25.7-33.7); MCHC 33.3 g/dl (32.0-35.9); MEAN CELL VOLUME 93.5 fl (80-96); MONO % 5.7 % (3.8-10.2); NEUT % 73.2 % (42.8-82.8); PLATELET COUNT 146 K/MM3 (134-434); RBC 4.33 M/mm3 (4.00-5.60); WHITE BLOOD COUNT 5.1 K/mm3 (4.0-10.0)
[2019-08-01 20:43] LABS: VENOUS BASE EXCESS 4.3 meq/l (-2-2); VENOUS PC02 52.8 mmHg (38-52); VENOUS PH 7.38 (7.31-7.41)
[2019-08-01 20:44] LABS: INR 1.75 (0.83-1.09); PROTHROMBIN TIME (PATIENT) 20.8 SEC (9.7-13.0)
[2019-08-01 20:46] LABS: ACTIVATED PTT 46.9 SECONDS (25.2-36.5)
[2019-08-01 20:48] LABS: VENOUS PO2 < 49 mmHg (28-48)
[2019-08-01] MEDS ORDERED: CEFTRIAXONE 1 GM in DEXTROSE 5%-WATER - 50 ML IVPB ONE (21:23)
[2019-08-01] MEDS ORDERED: CEFTRIAXONE 1 GM/50 ML BAG ONE (21:48)
[2019-08-01] MEDS ORDERED: DOXYCYCLINE INJECTION 100 MG in DEXTROSE 5%-WATER - 100 ML IVPB ONE (21:58)
[2019-08-01] MEDS ORDERED: HEPARIN NA (PORCINE) 5,000 UNITS/ML 1ML VIAL ONE (22:31)
[2019-08-01] MEDS ORDERED: DOXYCYCLINE HYCLATE 100 MG VIAL ONE (23:34)
[2019-08-01] MEDS: HEPARIN NA (PORCINE) 5,000 UNITS/ML 1ML VIAL SQ SCH (23:49)
[2019-08-02 00:17] LABS: ALBUMIN 2.2 g/dl (3.4-5.0); BILIRUBIN,DIRECT 0.2 mg/dL (0.0-0.2); BILIRUBIN,TOTAL 0.6 mg/dL (0.2-1); BLOOD UREA NITROGEN 22.3 mg/dL (7-18); CALCIUM 7.6 mg/dL (8.5-10.1); CREATININE 1.4 mg/dL (0.55-1.3); TOT PROT 5.8 g/dl (6.4-8.2)
[2019-08-02] MEDS: HEPARIN NA (PORCINE) 5,000 UNITS/ML 1ML VIAL SQ SCH ×2 (11:18→21:31)
[2019-08-02] MEDS: CEFTRIAXONE 1 GM in DEXTROSE 5%-WATER - 50 ML IVPB SCH (11:18)
[2019-08-02] MEDS: DEXTROSE 5%-0.45% SALINE 1,000 ML IV SCH (11:22)
[2019-08-02] MEDS: DOXYCYCLINE INJECTION 100 MG in DEXTROSE 5%-WATER - 100 ML IVPB SCH (13:47)
[2019-08-02 14:52] LABS: BASO % 0.6 % (0-2.0); HEMATOCRIT 53.3 % (35.4-49); HEMOGLOBIN 16.6 GM/dL (11.7-16.9); LYMPH % 22.2 % (8-40); MCH 30.4 pg (25.7-33.7); MCHC 31.2 g/dl (32.0-35.9); MEAN CELL VOLUME 97.7 fl (80-96); MEAN PLT VOLUME 10.1 fl (7.5-11.1); MONO % 5.1 % (3.8-10.2); NEUT % 72.1 % (42.8-82.8); PLATELET COUNT 135 K/MM3 (134-434); RBC 5.45 M/mm3 (4.00-5.60); RDW 15.7 % (11.9-15.9); WHITE BLOOD COUNT 3.6 K/mm3 (4.0-10.0)
[2019-08-02 15:34] LABS: PLATELET ESTIMATE DECREASED
[2019-08-02 16:00] LABS: BLOOD UREA NITROGEN 24.6 mg/dL (7-18); CALCIUM 8.8 mg/dL (8.5-10.1); CREATININE 1.5 mg/dL (0.55-1.3); POTASSIUM 4.9 mmol/L (3.5-5.1)
[2019-08-02] MEDS: HYDROXYCHLOROQUINE SO4 200 MG TABLET (FP) PO SCH (18:59)
[2019-08-02] MEDS: METOPROLOL TARTRATE 50 MG TABLET (FP) PO SCH (22:48)
[2019-08-03 00:26] LABS: MAGNESIUM 2.7 mg/dL (1.8-2.4); PHOSPHOROUS 5.6 mg/dL (2.5-4.9)
[2019-08-03] MEDS: HYDROXYCHLOROQUINE SO4 200 MG TABLET (FP) PO SCH (06:00)
[2019-08-03] MEDS: METOPROLOL TARTRATE 50 MG TABLET (FP) PO SCH ×2 (10:48→22:16)
[2019-08-03] MEDS: CEFTRIAXONE 1 GM in DEXTROSE 5%-WATER - 50 ML IVPB SCH (10:49)
[2019-08-03] MEDS: HEPARIN NA (PORCINE) 5,000 UNITS/ML 1ML VIAL SQ SCH ×2 (11:01→22:17)
[2019-08-03] MEDS: DOXYCYCLINE INJECTION 100 MG in DEXTROSE 5%-WATER - 100 ML IVPB SCH ×2 (11:04→23:00)
[2019-08-03] MEDS: DEXTROSE 5%-0.45% SALINE 1,000 ML IV SCH (11:05)
[2019-08-03] MEDS ORDERED: HYDROXYCHLOROQUINE SO4 200 MG TABLET (FP) PO SCH (19:00)
[2019-08-03] MEDS: ACETAMINOPHEN 325 MG TABLET (FP) PO PRN (21:00)
[2019-08-03] MEDS ORDERED: PT OWN MED DRAWER 7, Y5N ONE (21:10)
[2019-08-04] MEDS: DOXYCYCLINE HYCLATE 100 MG CAPSULE PO SCH ×3 (01:42→18:43)
[2019-08-04] MEDS: CEFTRIAXONE 1 GM in DEXTROSE 5%-WATER - 50 ML IVPB SCH (11:00)
[2019-08-04] MEDS: DEXTROSE 5%-0.45% SALINE 1,000 ML IV SCH (11:00)
[2019-08-04] MEDS: HYDROXYCHLOROQUINE SO4 200 MG TABLET (FP) PO SCH ×2 (11:00→22:07)
[2019-08-04] MEDS: METOPROLOL TARTRATE 50 MG TABLET (FP) PO SCH ×2 (11:00→22:07)
[2019-08-04] MEDS: HEPARIN NA (PORCINE) 5,000 UNITS/ML 1ML VIAL SQ SCH ×2 (11:00→22:07)
[2019-08-04] MEDS ORDERED: cefTRIAXone SODIUM 1 GM VIAL ONE (11:18)
[2019-08-04] MEDS ORDERED: DEXTROSE 5%-WATER - 50 ML IVPB ONE (11:18)
[2019-08-04] MEDS: ACETAMINOPHEN 325 MG TABLET (FP) PO PRN (22:11)
[2019-08-05] MEDS ORDERED: DEXTROSE 5%-WATER - 50 ML IVPB ONE (10:19)
[2019-08-05] MEDS ORDERED: cefTRIAXone SODIUM 1 GM VIAL ONE (10:19)
[2019-08-05] MEDS: CEFTRIAXONE 1 GM in DEXTROSE 5%-WATER - 50 ML IVPB SCH (10:49)
[2019-08-05] MEDS: HYDROXYCHLOROQUINE SO4 200 MG TABLET (FP) PO SCH ×2 (10:50→21:57)
[2019-08-05] MEDS: METOPROLOL TARTRATE 50 MG TABLET (FP) PO SCH ×2 (10:50→21:57)
[2019-08-05] MEDS: HEPARIN NA (PORCINE) 5,000 UNITS/ML 1ML VIAL SQ SCH ×2 (10:50→21:57)
[2019-08-05] MEDS: DOXYCYCLINE HYCLATE 100 MG CAPSULE PO SCH ×2 (10:50→17:25)
[2019-08-05] MEDS: DEXTROSE 5%-0.45% SALINE 1,000 ML IV SCH (17:25)
[2019-08-05] MEDS: INSULIN SLIDING SCALE (NOVOLOG) 1 VIAL SQ SCH (17:27)
[2019-08-05] MEDS: ACETAMINOPHEN 325 MG TABLET (FP) PO PRN (21:57)
[2019-08-06] MEDS: INSULIN SLIDING SCALE (NOVOLOG) 1 VIAL SQ SCH ×2 (06:34→18:05)
[2019-08-06] MEDS: DOXYCYCLINE HYCLATE 100 MG CAPSULE PO SCH ×2 (11:12→18:01)
[2019-08-06] MEDS: HYDROXYCHLOROQUINE SO4 200 MG TABLET (FP) PO SCH ×2 (11:13→21:26)
[2019-08-06] MEDS: METOPROLOL TARTRATE 50 MG TABLET (FP) PO SCH ×2 (11:13→21:26)
[2019-08-06] MEDS: HEPARIN NA (PORCINE) 5,000 UNITS/ML 1ML VIAL SQ SCH ×2 (11:14→21:25)
[2019-08-06] MEDS ORDERED: cefTRIAXone SODIUM 1 GM VIAL ONE (11:59)
[2019-08-06] MEDS ORDERED: DEXTROSE 5%-WATER - 50 ML IVPB ONE (11:59)
[2019-08-06] MEDS: CEFTRIAXONE 1 GM in DEXTROSE 5%-WATER - 50 ML IVPB SCH (12:09)
[2019-08-06] MEDS: DEXTROSE 5%-0.45% SALINE 1,000 ML IV SCH ×2 (12:09→18:54)
[2019-08-06 14:31] LABS: BASO % 0.1 % (0-2.0); EOS % 0.3 % (0-4.5); HEMATOCRIT 35.7 % (35.4-49); HEMOGLOBIN 11.7 GM/dL (11.7-16.9); LYMPH % 8.4 % (8-40); MCH 30.5 pg (25.7-33.7); MCHC 32.7 g/dl (32.0-35.9); MEAN CELL VOLUME 93.2 fl (80-96); MEAN PLT VOLUME 11.4 fl (7.5-11.1); MONO % 4.5 % (3.8-10.2); NEUT % 86.7 % (42.8-82.8); PLATELET COUNT 195 K/MM3 (134-434); RBC 3.83 M/mm3 (4.00-5.60); RDW 15.4 % (11.9-15.9); WHITE BLOOD COUNT 6.9 K/mm3 (4.0-10.0)
[2019-08-06 15:04] LABS: ALBUMIN 1.7 g/dl (3.4-5.0); BILIRUBIN,TOTAL 0.4 mg/dL (0.2-1); BLOOD UREA NITROGEN 37.5 mg/dL (7-18); CALCIUM 8.1 mg/dL (8.5-10.1); CREATININE 2.1 mg/dL (0.55-1.3); MAGNESIUM 2.1 mg/dL (1.8-2.4); POTASSIUM 3.8 mmol/L (3.5-5.1); TOT PROT 5.6 g/dl (6.4-8.2)
[2019-08-06] MEDS ORDERED: POTASSIUM CHLORIDE ORAL LIQUID 20 MEQ/15 ML PO ONE (16:36)
[2019-08-06] MEDS: INSULIN (LEVEMIR) 100 UNITS/ML UNITS SQ SCH (21:25)
[2019-08-07] MEDS: INSULIN SLIDING SCALE (NOVOLOG) 1 VIAL SQ SCH ×2 (06:31→16:34)
[2019-08-07] MEDS ORDERED: DEXTROSE 5%-WATER - 50 ML IVPB ONE (09:25)
[2019-08-07] MEDS ORDERED: cefTRIAXone SODIUM 1 GM VIAL ONE (09:25)
[2019-08-07] MEDS: CEFTRIAXONE 1 GM in DEXTROSE 5%-WATER - 50 ML IVPB SCH (09:41)
[2019-08-07] MEDS: HEPARIN NA (PORCINE) 5,000 UNITS/ML 1ML VIAL SQ SCH ×2 (09:42→23:06)
[2019-08-07] MEDS: METOPROLOL TARTRATE 50 MG TABLET (FP) PO SCH ×2 (09:42→23:07)
[2019-08-07] MEDS: DOXYCYCLINE HYCLATE 100 MG CAPSULE PO SCH ×2 (09:43→17:08)
[2019-08-07] MEDS: HYDROXYCHLOROQUINE SO4 200 MG TABLET (FP) PO SCH ×2 (09:44→23:07)
[2019-08-07] MEDS: DEXTROSE 5%-0.45% SALINE 1,000 ML IV SCH (14:24)
[2019-08-07 22:28] LABS: BLOOD UREA NITROGEN 34.9 mg/dL (7-18); CREATININE 1.8 mg/dL (0.55-1.3); MAGNESIUM 2.1 mg/dL (1.8-2.4)
[2019-08-07] MEDS: INSULIN (LEVEMIR) 100 UNITS/ML UNITS SQ SCH (23:07)
[2019-08-08] MEDS: INSULIN SLIDING SCALE (NOVOLOG) 1 VIAL SQ SCH ×2 (06:41→17:42)
[2019-08-08 08:26] LABS: BLOOD UREA NITROGEN 38.2 mg/dL (7-18); CALCIUM 8.2 mg/dL (8.5-10.1); CREATININE 1.8 mg/dL (0.55-1.3); MAGNESIUM 2.3 mg/dL (1.8-2.4); POTASSIUM 3.9 mmol/L (3.5-5.1)
[2019-08-08] MEDS ORDERED: DEXTROSE 5%-WATER - 50 ML IVPB ONE (08:28)
[2019-08-08] MEDS ORDERED: cefTRIAXone SODIUM 1 GM VIAL ONE (08:28)
[2019-08-08] MEDS ORDERED: POTASSIUM CHLORIDE ORAL LIQUID 20 MEQ/15 ML PO ONE (08:32)
[2019-08-08] MEDS: CEFTRIAXONE 1 GM in DEXTROSE 5%-WATER - 50 ML IVPB SCH (09:49)
[2019-08-08] MEDS: METOPROLOL TARTRATE 50 MG TABLET (FP) PO SCH ×2 (09:49→22:55)
[2019-08-08] MEDS: HYDROXYCHLOROQUINE SO4 200 MG TABLET (FP) PO SCH ×2 (09:49→22:55)
[2019-08-08] MEDS: DOXYCYCLINE HYCLATE 100 MG CAPSULE PO SCH ×2 (09:49→17:42)
[2019-08-08] MEDS: HEPARIN NA (PORCINE) 5,000 UNITS/ML 1ML VIAL SQ SCH (09:51)
[2019-08-08] MEDS: DEXTROSE 5%-0.45% SALINE 1,000 ML IV SCH (13:02)
[2019-08-08] MEDS: MEGESTROL ACETATE 400 MG/10 ML UNIT DOSE CUP PO SCH (14:13)
[2019-08-08] MEDS: INSULIN (LEVEMIR) 100 UNITS/ML UNITS SQ SCH (22:54)
[2019-08-09] MEDS: ACETAMINOPHEN 325 MG TABLET (FP) PO PRN (00:02)
[2019-08-09] MEDS: INSULIN SLIDING SCALE (NOVOLOG) 1 VIAL SQ SCH ×2 (06:19→17:12)
[2019-08-09 08:50] LABS: BLOOD UREA NITROGEN 45.8 mg/dL (7-18); CALCIUM 9.2 mg/dL (8.5-10.1); CREATININE 2.3 mg/dL (0.55-1.3); MAGNESIUM 2.4 mg/dL (1.8-2.4); POTASSIUM 4.1 mmol/L (3.5-5.1)
[2019-08-09] MEDS: DEXTROSE 5%-0.45% SALINE 1,000 ML IV SCH (10:00)
[2019-08-09] MEDS ORDERED: PT OWN MED DRAWER 7, Y5N ONE (10:24)
[2019-08-09] MEDS ORDERED: cefTRIAXone SODIUM 1 GM VIAL ONE (10:24)
[2019-08-09] MEDS ORDERED: DEXTROSE 5%-WATER - 50 ML IVPB ONE (10:25)
[2019-08-09] MEDS: MEGESTROL ACETATE 400 MG/10 ML UNIT DOSE CUP PO SCH (10:27)
[2019-08-09] MEDS: DOXYCYCLINE HYCLATE 100 MG CAPSULE PO SCH ×2 (10:28→17:42)
[2019-08-09] MEDS: METOPROLOL TARTRATE 50 MG TABLET (FP) PO SCH (10:28)
[2019-08-09] MEDS: HYDROXYCHLOROQUINE SO4 200 MG TABLET (FP) PO SCH (10:28)
[2019-08-09] MEDS: CEFTRIAXONE 1 GM in DEXTROSE 5%-WATER - 50 ML IVPB SCH (10:29)
[2019-08-09] MEDS ORDERED: ASCORBIC ACID 500 MG TABLET (FP) PO SCH (13:45)
[2019-08-09] MEDS ORDERED: ZINC SULFATE 220 MG CAPSULE (FP) PO SCH (13:45)
[2019-08-09 18:46] VITALS: BP 117/72; PULSE 99; TEMP 97.3
== END 2019-08-09 18:53 | DRG 177 ==
LOC: JER 18:21 → JERBED 21:15 → J6WEST-2 08-02 08:34 → J4W 08-03 14:58 → J4S 08-06 12:08 → J4W 08-06 12:11
PROVIDERS: ADMIT Internal Medicine; ATTEND Internal Medicine
DX: U07.1 COVID-19 (principal); J12.89 Other viral pneumonia; J96.01 Acute respiratory failure with hypoxia; G93.41 Metabolic encephalopathy; I69.354 Hemiplegia and hemiparesis following cerebral infarction affecting left non-dominant side; J98.11 Atelectasis; I42.2 Other hypertrophic cardiomyopathy; I24.8 Other forms of acute ischemic heart disease; N17.9 Acute kidney failure, unspecified; I13.0 Hypertensive heart and chronic kidney disease with heart failure and stage 1 through stage 4 chronic kidney disease, or unspecified chronic kidney disease; I50.30 Unspecified diastolic (congestive) heart failure; I25.10 Atherosclerotic heart disease of native coronary artery without angina pectoris; E78.5 Hyperlipidemia, unspecified; E11.9 Type 2 diabetes mellitus without complications; K21.9 Gastro-esophageal reflux disease without esophagitis; R94.31 Abnormal electrocardiogram [ECG] [EKG]; R79.89 Other specified abnormal findings of blood chemistry; R13.10 Dysphagia, unspecified; E11.22 Type 2 diabetes mellitus with diabetic chronic kidney disease; N18.9 Chronic kidney disease, unspecified; Z95.0 Presence of cardiac pacemaker
CPT/HCPCS: 36415; 71045-TC-FY; 71250-TC; 74150-TC; 80048; 80053; 82248; 82550; 82803; 82962; 83605; 83615; 83735; 84100; 84484; 85025; 85610; 85730; 93005; 93010; 99285-25; J1644; U0002